=== PATIENT | male | born 1975 | race Caucasian/White ===

== ENCOUNTER 2023-05-13 21:29 | Emergency (ER) | payer OTHER ==
[~2023-05-13] VITALS: Ht 182.9 cm; Wt 170.1 kg
[2023-05-13 23:41] VITALS: BP 139/78; PULSE 78; RESP 18; O2SAT 97
[2023-05-13] MEDS: cloNIDine HCL 0.1 MG TAB PO ONE (23:46)
[2023-05-14] MEDS ORDERED: CLON0.2T PO (00:10)
== END 2023-05-14 00:24 | disposition home or self-care (01) ==
LOC: ER 21:29
DX: I10 Essential (primary) hypertension (principal); E78.5 Hyperlipidemia, unspecified; F17.210 Nicotine dependence, cigarettes, uncomplicated
CPT/HCPCS: 93005

== ENCOUNTER 2023-09-22 14:23 | Emergency (ER) | payer OTHER ==
[~2023-09-22] VITALS: Ht 182.9 cm; Wt 172.7 kg
[~2023-09-22 14:23] MED LIST: CLON0.2T PO
[2023-09-22 16:00] VITALS: PULSE 90; RESP 16; O2SAT 98
[2023-09-22] MEDS: cloNIDine HCL 0.1 MG TAB PO ONE (16:02)
[2023-09-22 16:09] LABS: Basophils # (auto) 0.1 10 ^3/uL (0-0.2); Eosinophils # (auto) 0.2 10 ^3/uL (0-0.8); Eosinophils % (auto) 2.8 % (0.0-7.0); Hematocrit 42.7 % (41.0-53.0); Hemoglobin 14.6 g/dL (13.5-17.5); Lymphocytes # (auto) 2.2 10 ^3/uL (0.4-5.4); Lymphocytes % (auto) 26.8 % (10.0-50.0); Mean Corpuscular Hemoglobin 29.5 pg (28.0-32.0); Mean Corpuscular Hgb Conc. 34.1 g/dL (32.0-36.0); Mean Corpuscular Volume 86.4 fL (80.0-100.0); Monocytes # (auto) 0.8 10 ^3/uL (0-1.3); Neutrophils # (auto) 4.8 10 ^3/uL (1.6-8.6); Neutrophils % (auto) 59.4 % (37.0-80.0); Nucleated Red Blood Cells % 0.1 %; Red Blood Cells 4.94 10^6/uL (4.5-5.90); Red Cell Distribution Width 13.8 % (11.8-14.3); White Blood Cell 8.1 10^3/uL (4.4-10.8)
[2023-09-22 16:21] LABS: Chloride 108 mmol/L (98-107); Potassium 4.5 mmol/L (3.5-5.1); Sodium 140 mmol/L (136-145)
[2023-09-22 16:23] LABS: Calcium 9.5 mg/dL (8.7-10.4)
[2023-09-22 16:28] LABS: BUN/Creatinine Ratio 17.5 (10.0-20.0); Blood Urea Nitrogen 17 mg/dL (9-23); Glucose 164 mg/dL (74-106)
[2023-09-22 16:29] LABS: Anion Gap 8 (5-15); Carbon Dioxide 24 mmol/L (20-30)
[2023-09-22] MEDS ORDERED: LOSA100T25 PO (16:33)
[2023-09-22 16:47] VITALS: BP 151/99; PULSE 89; RESP 18; TEMP 98.2; O2SAT 96
== END 2023-09-22 16:55 | disposition home or self-care (01) ==
LOC: ER 14:23
DX: I16.0 Hypertensive urgency (principal); E78.5 Hyperlipidemia, unspecified; F17.210 Nicotine dependence, cigarettes, uncomplicated; I10 Essential (primary) hypertension
CPT/HCPCS: 36415; 80048; 82962; 85025; 93005

== ENCOUNTER 2023-09-28 00:07 | Emergency (ER) | payer OTHER ==
[~2023-09-28] VITALS: Ht 182.9 cm; Wt 163.5 kg
[~2023-09-28 00:07] MED LIST changes: +LOSA100T25 PO
[2023-09-28] MEDS: DexAMETHasone SOD PHOS 10MG/1ML VIAL INJ IM ONE (00:50)
[2023-09-28 00:51] LABS: Basophils # (auto) 0.1 10 ^3/uL (0-0.2); Basophils % (auto) 0.7 % (0.0-2.0); Eosinophils # (auto) 0 10 ^3/uL (0-0.8); Eosinophils % (auto) 0.2 % (0.0-7.0); Hematocrit 47.7 % (41.0-53.0); Hemoglobin 16.1 g/dL (13.5-17.5); Lymphocytes # (auto) 2.2 10 ^3/uL (0.4-5.4); Lymphocytes % (auto) 17.4 % (10.0-50.0); Mean Corpuscular Hemoglobin 29.5 pg (28.0-32.0); Mean Corpuscular Hgb Conc. 33.8 g/dL (32.0-36.0); Mean Corpuscular Volume 87.4 fL (80.0-100.0); Monocytes # (auto) 1.2 10 ^3/uL (0-1.3); Monocytes % (auto) 9.5 % (0.0-12.0); Neutrophils % (auto) 72.2 % (37.0-80.0); Red Blood Cells 5.46 10^6/uL (4.5-5.90); Red Cell Distribution Width 14.2 % (11.8-14.3); White Blood Cell 12.4 10^3/uL (4.4-10.8)
[2023-09-28] MEDS: ALBUTEROL SULF 2.5 MG/0.5ML(0.5%) NEB SOLN NEB ONE (00:59)
[2023-09-28] MEDS: IPRATROPIUM BROM 0.5 MG/2.5ML INH SOL NEB ONE (01:00)
[2023-09-28 01:01] LABS: Alanine Aminotransferase 43 U/L (7-40); Albumin 4.7 g/dL (3.2-4.8); Alkaline Phosphatase 82 U/L (46-116); Anion Gap 8 (5-15); Aspartate Aminotransferase 19 U/L (13-40); BUN/Creatinine Ratio 15.9 (10.0-20.0); Bilirubin, Total 0.6 mg/dL (0.2-1.0); Blood Urea Nitrogen 18 mg/dL (9-23); Calcium 9.9 mg/dL (8.7-10.4); Carbon Dioxide 23 mmol/L (20-30); Chloride 103 mmol/L (98-107); Glucose 158 mg/dL (74-106); Magnesium 1.9 mg/dL (1.6-2.6); Potassium 4.1 mmol/L (3.5-5.1); Total Protein 8.6 g/dL (5.7-8.2)
[2023-09-28 01:10] LABS: Sodium 134 mmol/L (136-145)
[2023-09-28] MEDS: cloNIDine HCL 0.1 MG TAB PO ONE (01:12)
[2023-09-28 02:10] VITALS: BP 144/94; PULSE 86; RESP 16; TEMP 98.3; O2SAT 96
[2023-09-28] MEDS: KETOROLAC TROMETH 30 MG/ML 1ML VIAL IM ONE (02:42)
== END 2023-09-28 02:47 | disposition home or self-care (01) ==
LOC: ER 00:07
DX: I10 Essential (primary) hypertension (principal); E78.5 Hyperlipidemia, unspecified; F17.210 Nicotine dependence, cigarettes, uncomplicated; Z91.013 Allergy to seafood
CPT/HCPCS: 36415; 71045; 80053; 83735; 84484; 85025; 93005; 94640; 96372; 99285; J1100; J1885

== ENCOUNTER 2023-12-24 03:15 | Emergency (ER) | payer OTHER ==
[~2023-12-24] VITALS: Ht 182.9 cm; Wt 163.6 kg
[2023-12-24 05:11] LABS: Basophils # (auto) 0.1 10 ^3/uL (0-0.2); Eosinophils # (auto) 0.3 10 ^3/uL (0-0.8); Eosinophils % (auto) 3.4 % (0.0-7.0); Hematocrit 42.9 % (41.0-53.0); Hemoglobin 14.3 g/dL (13.5-17.5); Lymphocytes # (auto) 2.8 10 ^3/uL (0.4-5.4); Mean Corpuscular Hemoglobin 28.9 pg (28.0-32.0); Mean Corpuscular Hgb Conc. 33.2 g/dL (32.0-36.0); Mean Corpuscular Volume 87.1 fL (80.0-100.0); Monocytes # (auto) 0.8 10 ^3/uL (0-1.3); Monocytes % (auto) 8.9 % (0.0-12.0); Neutrophils # (auto) 5.3 10 ^3/uL (1.6-8.6); Neutrophils % (auto) 56.7 % (37.0-80.0); Platelet Count (auto) 295 10^3/uL (140-450); Red Blood Cells 4.93 10^6/uL (4.5-5.90); Red Cell Distribution Width 14.2 % (11.8-14.3); White Blood Cell 9.4 10^3/uL (4.4-10.8)
[2023-12-24 05:33] LABS: Alanine Aminotransferase 27 U/L (7-40); Albumin 4.5 g/dL (3.2-4.8); Alkaline Phosphatase 85 U/L (46-116); Anion Gap 9 (5-15); Aspartate Aminotransferase 16 U/L (13-40); BUN/Creatinine Ratio 10.7 (10.0-20.0); Bilirubin, Total 0.5 mg/dL (0.2-1.0); Blood Urea Nitrogen 11 mg/dL (9-23); Calcium 9.7 mg/dL (8.7-10.4); Carbon Dioxide 27 mmol/L (20-31); Chloride 102 mmol/L (98-107); Glucose 174 mg/dL (74-106); Lipase 35 U/L (12-53); Potassium 4.4 mmol/L (3.5-5.1); Sodium 138 mmol/L (136-145); Total Protein 7.7 g/dL (5.7-8.2)
[2023-12-24 06:22] VITALS: BP 139/90; PULSE 94; RESP 16; TEMP 98.1; O2SAT 96
== END 2023-12-24 07:31 | disposition home or self-care (01) ==
LOC: ER 03:15
DX: K42.9 Umbilical hernia without obstruction or gangrene (principal); R10.33 Periumbilical pain; E11.9 Type 2 diabetes mellitus without complications; K21.9 Gastro-esophageal reflux disease without esophagitis; E78.5 Hyperlipidemia, unspecified; I10 Essential (primary) hypertension; Z79.899 Other long term (current) drug therapy; Z87.442 Personal history of urinary calculi
CPT/HCPCS: 36415; 74176; 80053; 83690; 85025

== ENCOUNTER 2024-10-03 06:50 | Inpatient (IN) | payer OTHER ==
[~2024-10-03] VITALS: Ht 182.9 cm; Wt 157.1 kg
--- NOTE | 2024-10-03 07:15 | ED.PDOC ---
GI ASSESSMENT HPI Comments 48 y/o M, with PMHx of HTN, DM, GERD, HLD, and Kidney stones presents to the ED for CC of abdominal pain. Patient states, he has been experiencing diffuse sharp/stabbing abdominal pain onset, 0500 this morning (10/03/24). Patient relays, further symptoms or nausea, vomiting, and shortness of breath as a result. Patient comments, that he has had problems with constipation in the past and has not had a bowel movement in x1day. Patient denies nausea, vomiting, chills, fever, or sweats. No other symptoms or modifying factors present at this time. Chief Complaint: Abdominal Pain Time Seen by MD: 07:00 Primary Care Provider: Negin Wilde Notes: Nurses Notes, Medications, Allergies Allergies: Uncoded Allergies: SEAFOOD (Allergy, Unknown, 05/13/23) Home Meds Active Scripts Clonidine Hydrochloride (Clonidine Hcl) 0.2 Mg Tab, 1 TAB PO BIDP PRN, #15 TAB 0 Refills Prov:YURI RON PAC 09/28/23 Losartan Potassium & Hydrochlo (Hyzaar) 1 Tab Tab, 1 TAB PO DAILY, #30 TAB 5 Refills Prov:JOHN TARANGO MD 09/22/23 Clonidine Hydrochloride (Clonidine Hcl) 0.2 Mg Tab, 1 TAB PO BIDP PRN, #20 TAB 0 Refills To be utilized if systolic blood pressures above 160 or diastolic pressures above 90 Prov:YURI RON PAC 05/14/23 Information Source: Patient Mode of Arrival: Ambulatory Timing: Hours Duration: Since onset Prehospital treatment: None Quality: Sharp, Stabbing Vomitus: Watery Stool: Impaction Severity: Moderate Recent: None Recent Hx of: None Pain Location: Diffuse Modifying Factors: Nothing Associated sign and symptoms: Nausea, Vomiting, Abdominal Pain Past Medical History PAST MEDICAL HISTORY: DM, GERD, High Lipids, HTN, Kidney Stones Surgical History: Denies all surgeries Family History Family History: Unknown Social History Smoker: Non-Smoker, Quit Greater Than 1 Year Alcohol: Occasionally Drugs: Denies Drug Use Lives In: Home Constitutional: denies: chills, diaphoresis, fatigue, fever, malaise, sweats, weakness, others EENTM: denies: blurred vision, double vision, ear bleeding, ear discharge, ear drainage, ear pain, ear ringing, eye pain, eye redness, hearing loss, mouth pain, mouth swelling, nasal discharge, nose bleeding, nose congestion, nose pa in, photophobia, tearing, throat pain, throat swelling, voice changes, others Respiratory: reports: shortness of breath; denies: cough, hemoptysis, orthopnea, SOB at rest, SOB with excertion, stridor, wheezing, others Cardiovascular: denies: chest pain, dizzy spells, diaphoresis, Dyspnea on exertion, edema, irregular heart beat, left arm pain, lightheadedness, palpitations, PND, syncope, others Gastrointestinal: reports: abdominal pain, nausea, vomiting; denies: abdomen distended, blood streaked bowels, constipated, diarrhea, dysphagia, difficulty swallowing, hematemesis, melena, poor appetite, poor fluid intake, rectal bleeding, rectal pain, others Genitourinary: denies: burning, dysuria, flank pain, frequency, hematuria, incontinence, penile discharge, penile sore, pain, testicle pain, testicle swelling, urgency, others Neurological: denies: dizziness, fainting, headache, left sided numbness, left sided weakness, numbness, paresthesia, pre-existing deficit, right sided numbness, right sided weakness, seizure, speech problems, tingling, tremors, weakness, others Musculoskeletal: denies: back pain, gout, joint pain, joint swelling, muscle pain, muscle stiffness, neck pain, others Integumetry: denies: bruises, change in color, change in hair/nails, dryness, laceration, lesions, lumps, rash, wounds, others Allergic/Immunocompromised: denies: Difficulty Healing, Frequent Infections, H kim, Itching, others Hematologic/Lymphatic: denies: anemia, blood clots, easy bleeding, easy bruising, swollen glands, others Endocrine: denies: excessive hunger, excessive sweating, excessive thirst, excessive urination, flushing, intolerance to cold, intolerance to heat, unexplained weight gain, unexplained weight loss, others Psychiatric: denies: anxiety, bipolar disorder, depression, hopeless, panic disorder, schizophrenia, sleepless, suicidal, others All Other Systems: Reviewed and Negative Physical Exam General Appearance: Moderate Distress, Obese HEENT: Normal ENT Inspection, Pharynx Normal, TMs Normal Neck: Full Range of Motion, Non-Tender, Normal, Normal Inspection Respiratory: Chest Non-Tender, Lungs Clear, No Accessory Muscle Use, No Respiratory Distress, Normal Breath Sounds Cardiovascular: No Edema, No JVD, No Murmur, No Gallop, Normal Peripheral Pulses, Regular Rate/Rhythm Breast Exam: Deferred Gastrointestinal: Hernia Genitalia: Deferred Pelvic: Deferred Rectal: Deferred Extremities: No calf tenderness, Normal capillary refill, Normal inspection, Normal range of motion, Non-tender, No pedal edema Musculoskeletal : Apperance: Normal Neurologic: Alert, fpga design engineer II-XII nml as Tested, No Motor Deficits, Normal Affect, Normal Mood, No Sensory Deficits Cerebellar Function: Normal Reflexes: Normal Skin: Dry, Normal Color, Warm Peripheral Pulses: 3+ Radial (R), 3+ Radial (L) Lymphatic: No Adenopathy Was a procedure done? Was a procedure done?: No GI differential Dx Differential Diagnosis: Constipation, Diverticular disease, Esophagitis, Gastritis/PUD, Gastroenteritis, Hernia, Electrolyte Imbalance, Food Poisoning, Bacterial, Viral X-Ray, Labs, Meds, VS Vital Signs Date Time Temp Pulse Resp B/P (MAP) Pulse Ox O2 Delivery O2 Flow Rate FiO2 10/03/24 06:51 97.6 81 22 146/100 99 97.6 Lab Test 10/03/24 07:15 Range/Units White Blood Count 8.9 4.4-10.8 10^3/uL Red Blood Count 5.19 4.5-5.90 10^6/uL Hemoglobin 15.3 13.5-17.5 g/dL Hematocrit 44.5 41.0-53.0 % Mean Corpuscular Volume 85.7 80.0-100.0 fL Mean Corpuscular Hemoglobin 29.5 28.0-32.0 pg Mean Corpuscular Hemoglobin Concent 34.4 32.0-36.0 g/dL Red Cell Distribution Width 14.2 11.8-14.3 % Platelet Count 333 140-450 10^3/uL Mean Platelet Volume 8.1 6.9-10.8 fL Neutrophils (%) (Auto) 59.6 37.0-80.0 % Lymphocytes (%) (Auto) 30.3 10.0-50.0 % Monocytes (%) (Auto) 8.5 0.0-12.0 % Eosinophils (%) (Auto) 1.1 0.0-7.0 % Basophils (%) (Auto) 0.5 0.0-2.0 % Neutrophils # (Auto) 5.3 1.6-8.6 10 ^3/uL Lymphocytes # (Auto) 2.7 0.4-5.4 10 ^3/uL Monocytes # (Auto) 0.8 0-1.3 10 ^3/uL Eosinophils # (Auto) 0.1 0-0.8 10 ^3/uL Basophils # (Auto) 0 0-0.2 10 ^3/uL Nucleated Red Blood Cells 0.0 % Sodium Level 143 136-145 mmol/L Potassium Level 4.1 3.5-5.1 mmol/L Chloride Level 109 H 98-107 mmol/L Carbon Dioxide Level 22 20-31 mmol/L Anion Gap 12 5-15 Blood Urea Nitrogen 13 9-23 mg/dL Creatinine 1.06 0.700-1.30 mg/dL Glomerular Filtration Rate Calc 87 >90 mL/min BUN/Creatinine Ratio 12.3 10.0-20.0 Serum Glucose 182 H 74-106 mg/dL Calcium Level 9.2 8.7-10.4 mg/dL Patient alert. Complaining of abdominal pain. On examination he does have umbilical hernia. Vitals stable. Answering questions WBC within normal limits. Hemoglobin within normal limits. He is obese. Explained to the patient. Continue monitoring. [place] [address] Ph: [phone] DIAGNOSTIC IMAGING Diagnostic Imaging Report : [id number] Signed PATIENT: DEIRDRE VAILACCT: [id number] UNIT: [id number] : 1975 LOC: OVERFLOW ROOM / BED: [address] [place] [address] / AGE / SEX: 48 / M ADM STATUS: ADM IN SERVICE 0711 ORDERING PHYSICIAN: HELEN GALE MD PROCEDURE(s): ABPL - CT AB PEL WO CON-NO ORAL OR IV REASON: hernia ORDER NUMBER(s): [id number], ACCESSION NUMBER(s): [id number] CT CT AB PEL WO CON-NO ORAL OR IV INDICATION: hernia EXAM DATE: 10/03/2024 08:16 AM COMPARISON: CT CT AB PEL WO CON-NO ORAL OR IV on DOS: 12/24/23 RADIATION DOSE: CTDIvol: 25.71 mGy, DLP: 1834.91 mGy*cm PROCEDURE: Helical CT images were obtained of the abdomen and pelvis without IV contrast Sagittal and coronal reconstructions are provided. ORAL CONTRAST: None. ADDITIONAL IMAGES / REFORMATS: None All CT scans at this medical facility are performed using dose modulation techniques as appropriate to a performed exam including the following: Automated exposure control was utilized; adjustment of the MA and/or KV according to patient size; and use of iterative reconstruction technique. FINDINGS: LUNG BASE: Normal. LIVER: Hepatic steatosis. GALLBLADDER AND BILIARY TREE: No calcified gallstones. Normal caliber wall. No intra- or extrahepatic biliary ductal dilation. PANCREAS: Normal. SPLEEN: Normal. BOWEL: Normal. ADRENALS: Normal. KIDNEYS AND URETER: Normal. BLADDER: Normal. REPRODUCTIVE ORGANS: Normal. LYMPH NODES:No lymphadenopathy. PERITONEUM: No ascites or free air. No other fluid collection. VESSELS: Scattered atherosclerotic calcifications are noted. RETROPERITONEUM: Normal. ABDOMINAL WALL: Large fat containing umbilical hernia contains loop of nondilated bowel. BONES: Scattered osseous degenerative changes are noted. IMPRESSION: No acute intraabdominal abnormality. Large fat containing umbilical hernia contains loop of nondilated bowel. Hepatic steatosis. ATED BY: DANK VALLES MD DICTATED DATE/TIME: 10/03/24932 SIGNED BY: DANK VALLES MD SIGNED DATE/TIME: 10/03/24932 CC: Time of 1ST Reevaluation: 07:30 Reevaluation 1ST: Unchanged Patient Education/Counseling: Diagnosis, Treatment Family Education/Counseling: No Family Present SEPSIS Sepsis Screen Date sepsis recognized/suspect: Oct 03, 2024 Time Sepsis recognized/suspect: 0650 Recent Procedure: No On Antibiotic Therapy: No Respiratory Rate >20: Yes Heart Rate >90: No Temp<36 C (96.8 F) or >38.3 C: No SBP <90 or MAP <65 mmHG: No New Acute Mental Status Change: No Is the patient on CPAP, BIPAP,: No Physician Orders Ct Ab Pel Wo Con-No Oral Or Iv (10/03/24 07:11) Vital Signs Date Time Temp Pulse Resp B/P (MAP) Pulse Ox O2 Delivery O2 Flow Rate FiO2 10/03/24 06:51 97.6 81 22 146/100 99 97.6 Laboratory Tests Test 10/03/24 07:15 White Blood Count 8.9 10^3/uL (4.4-10.8) Departure 1 Departure Time of Disposition: 07:50 Impression: Primary Impression: Acute abdominal pain Additional Impression: Umbilical hernia Qualified Codes: K42.9 - Umbilical hernia without obstruction or gangrene Disposition: ADMITTED INPATIENT Admit to: Med Surg Condition: Guarded Critical Care Note Critical Care Time?: No Stability Stability form required: No Heart Score Heart Score: Heart Score Response (Comments) Value History N/A 0 EKG N/A 0 Age N/A 0 Risk Factors N/A 0 Troponin N/A 0 Total 0 I personally scribed for HELEN GALE MD ([email or web address]) on 10/03/24 at 07:15. Electronically submitted by Elodia Juarez ([email or web address]). I personally scribed for HELEN GALE MD ([email or web address]) on 10/03/24 at 10:02. Electronically submitted by Elodia Juarez [email or web address]). HELEN GALE MD Oct 03, 2024 07:15
[2024-10-03 07:47] LABS: Hematocrit 44.5 % (41.0-53.0); Hemoglobin 15.3 g/dL (13.5-17.5); Mean Corpuscular Hemoglobin 29.5 pg (28.0-32.0); Mean Corpuscular Volume 85.7 fL (80.0-100.0); Nucleated Red Blood Cells % 0.0 %
[2024-10-03 07:51] LABS: Potassium 4.1 mmol/L (3.5-5.1); Sodium 143 mmol/L (136-145)
[2024-10-03 07:52] LABS: Anion Gap 12 (5-15); Carbon Dioxide 22 mmol/L (20-31)
[2024-10-03 07:53] LABS: Calcium 9.2 mg/dL (8.7-10.4)
[2024-10-03 07:54] LABS: Chloride 109 mmol/L (98-107)
[2024-10-03 07:57] LABS: BUN/Creatinine Ratio 12.3 (10.0-20.0); Blood Urea Nitrogen 13 mg/dL (9-23)
[2024-10-03 07:58] LABS: Glucose 182 mg/dL (74-106)
[2024-10-03] MEDS ORDERED: NITROGLYCERIN 0.4 MG SL TAB SL PRN (09:30)
[2024-10-03] MEDS ORDERED: TEMAZEPAM 15 MG CAP PO PRN (09:30)
[2024-10-03] MEDS: SODIUM CHLORIDE 0.9% 1,000 ML IV SCH (09:30)
--- NOTE | 2024-10-03 09:35 | DVH ---
CT CT AB PEL WO CON-NO ORAL OR IV INDICATION: hernia EXAM DATE: 10/03/2024 08:16 AM COMPARISON: CT CT AB PEL WO CON-NO ORAL OR IV on DOS: 12/24/23 RADIATION DOSE: CTDIvol: 25.71 mGy, DLP: 1834.91 mGy*cm PROCEDURE: Helical CT images were obtained of the abdomen and pelvis without IV contrast Sagittal and coronal reconstructions are provided. ORAL CONTRAST: None. ADDITIONAL IMAGES / REFORMATS: None All C T scans at this medical facility are performed using dose modulation techniques as appropriate to a p erformed exam including the following: Automated exposure control was utilized; adjustment of the MA and/or KV according to patient size; and use of iterative reconstruction technique. FINDINGS: LUNG BASE: Normal. LIVER: Hepatic steatosis. GALLBLADDER AND BILIARY TREE: No calcified gallstones. Normal caliber wall. No intra- or extrahepatic biliary ductal dilation. PANCREAS: Normal. SPLEEN: Normal. BOWEL: Normal. ADRENALS: Normal. KIDNEYS AND URETER: Normal. BLADDER: Normal. REPRODUCTIVE ORGANS: Normal. LYMPH NODES:No lymphadenopathy. PERITONEUM: No ascites or free air. No other fluid collection. VESSELS: Scattered atherosclerotic calcifications are noted. RETROPERITONEUM: Normal. ABDOMINAL WALL: Large fat containing umbilical hernia contains loop of nondilated bowel. BONES: Scattered osseous degenerative changes are noted. IMPRESSION: No acute intraabdominal abnormality. Large fat containing umbilical hernia contains loop of nondilated bowel. Hepatic steatosis.
[2024-10-03] MEDS: MORPHINE SULFATE INJ 2 MG/ml SYRG IV PRN (09:41)
[2024-10-03] MEDS ORDERED: DEXTROSE (50%) 50ML SYRG IV PRN (11:30)
--- NOTE | 2024-10-03 11:37 | DVHHP2 ---
History of Present Illness Reason for Visit: Abdominal pain History of Present Illness 48-year-old male past medical history hypertension diabetes GERDs hyperlipidemia kidney stones umbilicus hernia denies surgical history chief complaint patient states he came in with abdominal pain since this morning was sharp in nature he states he was not able to sleep due to the pain woke him up this morning. He states he had some vomiting with one episode with blood otherwise none after that. He does state that he is constipated for the last two weeks he states his last bowel movement was Friday he did not see any diarrhea no black stools or blood in his stools he has not taken any medication for his constipation patient denies any history getting colonoscopy in the past he states he tries to take fiber in his diet daily he does admit to has been diagnosed with umbilicus hernias in November 2023 but he has not gotten a surgery for when evaluating patient's labs and imaging from ED CBC was unremarkable BNP unremarkable only glucose elevated at 182 CT scan abdomen pelvis shows umbilical hernia with these findings we will admit we will place NPO and we will ask for General surgery evaluation Past Medical History See HPI above Past Surgical History See HPI above Family History Reviewed, non-contributory to the management of this case. Past Social History The patient lives at home, denies smoking, alcohol or illicit drugs abuse. Review of Systems Constitutional: No: Fever, Chills, Sweats, Weakness, Malaise, Other Eyes: No: Pain, Vision change, Conjunctivae inflammation, Eyelid inflammation, Other, Redness ENT: No: Ear pain, Ear discharge, Nose pain, Nose discharge, Nose congestion, Mouth pain, Mouth swelling, Throat pain, Throat swelling, Other Respiratory: No: Cough, Dry, Shortness of breath, SOB with excertion, Wheezing, Hemoptysis, Pleuritic Pain, Sputum, Wheezing, Other Cardiovascular: No: Chest Pain, Palpitations, Orthopnea, Paroxysmal Noc. Dyspnea, Edema, Lt Headedness, Other Gastrointestinal: Nausea, Vomiting, Abdominal Pain; No: Diarrhea, Constipation, Melena, Hematochezia, Other Genitourinary: No Dysuria, No Frequency, No Incontinence, No Hematuria, No Retention, No Other Musculoskeletal: No: other, neck pain, shoulder pain, arm pain, back pain, hand pain, leg pain, foot pain Skin: No: Rash, Lesions, Jaundice, Bruising, Other Neurological: No: Weakness, Numbness, Incoordination, Change in speech, Confusion, Seizures, Other Allergies: Uncoded Allergies: SEAFOOD (Allergy, Unknown, 05/13/23) Medications Current Medications Medications Dose Ordered Sig/Oumar Route Start Time Stop Time Status Last Admin Dose Admin Sodium Chloride 1,000 ml @ 120 mls/hr Q8H20M IV 10/03/24 09:30 Temazepam 15 mg QHSP PRN PO 10/03/24 09:30 Ondansetron HCl 4 mg Q4HP PRN IV 10/03/24 09:30 Docusate Sodium 100 mg BIDPRN PRN PO 10/03/24 09:30 Morphine Sulfate 2 mg Q4HPRN PRN IV 10/03/24 09:30 10/03/24 09:41 2 MG Nitroglycerin 0.4 mg Q5MINP PRN SL 10/03/24 09:30 Exam Vital Signs Vital Signs Date Time Temp Pulse Resp B/P (MAP) Pulse Ox O2 Delivery O2 Flow Rate FiO2 10/03/24 09:41 97.6 84 16 167/102 (123) 98 97.6 General Appearance: Alert, Oriented X3, Cooperative, No acute distress HEENT: Atraumatic, PERRLA, EOMI, Mucous membr. moist/pink Respiratory: Clear to auscultation, Normal air movement Cardiovascular: Regular rate, Normal S1, Normal S2, No murmurs Abdominal: Normal bowel sounds, Soft, No hepatospenomegaly, Other (Mild tenderness around the umbilicus hernia mild protrusion) Extremities: No clubbing, No cyanosis, No edema, Normal pulses, No tenderness/swelling Skin: No rashes, No breakdown, No significant lesion Neuro: Normal gait, Normal speech, Strength at 5/5 X4 ext, Normal tone, Sensation intact, Cranial nerves 3-12 NL Psych/Mental Status: Mental status NL, Mood NL Labs/Xrays CT scan abdomen and pelvis shows umbilical hernia I reviewed labs, imaging CT scan abdomen pelvis, EKG and all diagnostic studies on this patient from ED records and the medical chart Labs Test 10/03/24 07:15 Range/Units White Blood Count 8.9 4.4-10.8 10^3/uL Red Blood Count 5.19 4.5-5.90 10^6/uL Hemoglobin 15.3 13.5-17.5 g/dL Hematocrit 44.5 41.0-53.0 % Mean Corpuscular Volume 85.7 80.0-100.0 fL Mean Corpuscular Hemoglobin 29.5 28.0-32.0 pg Mean Corpuscular Hemoglobin Concent 34.4 32.0-36.0 g/dL Red Cell Distribution Width 14.2 11.8-14.3 % Platelet Count 333 140-450 10^3/uL Mean Platelet Volume 8.1 6.9-10.8 fL Neutrophils (%) (Auto) 59.6 37.0-80.0 % Lymphocytes (%) (Auto) 30.3 10.0-50.0 % Monocytes (%) (Auto) 8.5 0.0-12.0 % Eosinophils (%) (Auto) 1.1 0.0-7.0 % Basophils (%) (Auto) 0.5 0.0-2.0 % Neutrophils # (Auto) 5.3 1.6-8.6 10 ^3/uL Lymphocytes # (Auto) 2.7 0.4-5.4 10 ^3/uL Monocytes # (Auto) 0.8 0-1.3 10 ^3/uL Eosinophils # (Auto) 0.1 0-0.8 10 ^3/uL Basophils # (Auto) 0 0-0.2 10 ^3/uL Nucleated Red Blood Cells 0.0 % Sodium Level 143 136-145 mmol/L Potassium Level 4.1 3.5-5.1 mmol/L Chloride Level 109 H 98-107 mmol/L Carbon Dioxide Level 22 20-31 mmol/L Anion Gap 12 5-15 Blood Urea Nitrogen 13 9-23 mg/dL Creatinine 1.06 0.700-1.30 mg/dL Glomerular Filtration Rate Calc 87 >90 mL/min BUN/Creatinine Ratio 12.3 10.0-20.0 Serum Glucose 182 H 74-106 mg/dL Calcium Level 9.2 8.7-10.4 mg/dL SEPSIS Sepsis Screen Date sepsis recognized/suspect: Oct 03, 2024 Time Sepsis recognized/suspect: 649 Recent Procedure: No On Antibiotic Therapy: No Respiratory Rate >20: Yes Heart Rate >90: No Temp<36 C (96.8 F) or >38.3 C: No SBP <90 or MAP <65 mmHG: No New Acute Mental Status Change: No Is the patient on CPAP, BIPAP,: No Physician Orders Ct Ab Pel Wo Con-No Oral Or Iv (10/03/24 07:11) Admit (10/03/24 09:18) Allergies (10/03/24 09:18) Code Status (10/03/24 09:18) Sodium Chloride 0.9% (10/03/24 09:30) Temazepam (Restoril) (10/03/24 09:30) Ondansetron Hcl (Zofran) (10/03/24 09:30) Docusate Sodium Capsule (Colace Capsule) (10/03/24 09:30) Complete Blood Count (10/04/24 04:00) Comprehensive Metabolic Panel (10/04/24 04:00) Npo (Nothing By Mouth) Diet (10/03/24 Breakfast) Condition: Stable (10/03/24 09:18) BRP (10/03/24 09:18) Morphine Sulfate Injection (10/03/24 09:30) Sequential Compression Device (10/03/24 ) Nitroglycerin Sublingual (Ntrostat Subli (10/03/24 09:30) Stat Ekg For Chest Pain (10/03/24 09:18) Notify Of Changes From Base (10/03/24 09:18) Freelance Web Designer For 24 Hours (10/03/24 09:18) Emergency Dysrhythmia Protocol (10/03/24 09:18) Rhythm Strips Once Every Shift (10/03/24 09:18) Oxygen By Nasal Cannula (10/03/24 09:18) * Surgical Consult (10/03/24 ) Vital Signs Date Time Temp Pulse Resp B/P (MAP) Pulse Ox O2 Delivery O2 Flow Rate FiO2 10/03/24 09:41 97.6 84 16 167/102 (123) 98 97.6 10/03/24 09:41 84 15 167/102 10/03/24 06:51 97.6 81 22 146/100 99 97.6 Laboratory Tests Test 10/03/24 07:15 White Blood Count 8.9 10^3/uL (4.4-10.8) Medications Medications Dose Ordered Sig/Oumar Route Start Time Stop Time Status Last Admin Dose Admin Morphine Sulfate 2 mg Q4HPRN PRN IV 10/03/24 09:30 10/03/24 09:41 2 MG Assessment/Plan Assessment/Plan acute intractable abdominal pain with umbilical hernia ct scan found umbilical hernia npo for now general surgery consult fu recs ivf for now ordered morphine as needed for pain ordered protonix acute upper gi bleed one episode will monitor for bleeding if continues will need to consult gi ordered protonix for now npo unitl seen by surgeon acute constipation ordered miralax chronic problems htn dm ISS hld kidney stones umbilicas hernia plan admit to medicine general surgery consult Plan discussed with: Patient My Orders Orders - SANCHEZ GELLER DNP Procedure Category Date Status Time Admit ADMIT 10/03/24 Transmitted 09:18 Allergies JERAMY 10/03/24 In Process 09:18 Code Status CODE 10/03/24 Transmitted 09:18 Sodium Chloride 0.9% PHA 10/03/24 In Process 09:30 Temazepam (Restoril) PHA 10/03/24 In Process 09:30 Ondansetron Hcl PHA 10/03/24 In Process (Zofran) 09:30 Docusate Sodium PHA 10/03/24 In Process Capsule (Colace 09:30 Complete Blood Count LAB 10/04/24 Verified 04:00 Comprehensive LAB 10/04/24 Verified Metabolic Panel 04:00 Npo (Nothing By DIET 10/03/24 Transmitted Mouth) Diet Breakfast Condition: Stable JERAMY 10/03/24 In Process 09:18 BRP JERAMY 10/03/24 In Process 09:18 Morphine Sulfate PHA 10/03/24 In Process Injection 09:30 Sequential JERAMY 10/03/24 In Process Compression Device Nitroglycerin PHA 10/03/24 In Process Sublingual (Ntrostat 09:30 Stat Ekg For Chest JERAMY 10/03/24 In Process Pain 09:18 Notify Md Of Changes JERAMY 10/03/24 In Process From Base 09:18 Freelance Web Designer For JERAMY 10/03/24 In Process 24 Hours 09:18 Emergency Dysrhythmia JERAMY 10/03/24 In Process Protocol 09:18 Rhythm Strips Once JERAMY 10/03/24 In Process Every Shift 09:18 Oxygen By Nasal RT 10/03/24 Transmitted Cannula 09:18 * Surgical Consult CONS 10/03/24 Transmitted Date of Service: Oct 03, 2024 Billing Provider: SANCHEZ GELLER DNP Common Visit Codes: [id number] INP/OBS CARE (HIGH) SANCHEZ GELLER [facility] Oct 03, 2024 11:37
[2024-10-03] MEDS: PANTOPRAZOLE 40 MG/10 ML VIAL INJ IV ONE (11:52)
[2024-10-03] MEDS: InsuLIN REG 1unit/0.01ml Soln (100units/ml) SC SCH (11:53)
[2024-10-03] MEDS: POLYETHYLENE GLYCOL 17 GM PWDR PO ONE (11:53)
[2024-10-03] MEDS: ACCU-CHEK COMFORT CURVE STRIP VI SCH (11:53)
--- NOTE | 2024-10-03 18:54 | DVHINCON2 ---
Date of service: Oct 03, 2024 Allergies: Uncoded Allergies: SEAFOOD (Allergy, Unknown, 05/13/23) Home Meds Active Scripts Clonidine Hydrochloride (Clonidine Hcl) 0.2 Mg Tab, 1 TAB PO BIDP PRN, #15 TAB 0 Refills Prov:YURI RON PAC 09/28/23 Losartan Potassium & Hydrochlo (Hyzaar) 1 Tab Tab, 1 TAB PO DAILY, #30 TAB 5 Refills Prov:JOHN TARANGO MD 09/22/23 Clonidine Hydrochloride (Clonidine Hcl) 0.2 Mg Tab, 1 TAB PO BIDP PRN, #20 TAB 0 Refills To be utilized if systolic blood pressures above 160 or diastolic pressures above 90 Prov:YURI RON PAC 05/14/23 Current Medications Current Medications Medications (Trade) Dose Ordered Sig/Oumar Route PRN Reason Start Time Stop Time Status Last Admin Sodium Chloride 1,000 ml @ 120 mls/hr Q8H20M IV 10/03/24 09:30 Temazepam (Restoril) 15 mg QHSP PRN PO FOR INSOMNIA 10/03/24 09:30 Ondansetron HCl (Zofran) 4 mg Q4HP PRN IV NAUSEA / VOMITING 10/03/24 09:30 Docusate Sodium (Colace Capsule) 100 mg BIDPRN PRN PO FOR CONSTIPATION 10/03/24 09:30 Morphine Sulfate 2 mg Q4HPRN PRN IV SEVERE PAIN (7-10 PAIN SCALE) 10/03/24 09:30 10/03/24 09:41 Nitroglycerin (Ntrostat Sublingual) 0.4 mg Q5MINP PRN SL FOR CHEST PAIN 10/03/24 09:30 Diagnostic Test (Pha) (Accu-Chek Comfort Curve T) 1 strip Q6HR 10/03/24 12:00 10/03/24 11:53 Insulin Human Regular (InsuLIN R) Q6HR SC 10/03/24 12:00 Dextrose 50 ml UD PRN IV Blood Sugar LESS THAN 60 10/03/24 11:30 Pantoprazole Sodium (Protonix) 40 mg DAILY IV 10/04/24 10:00 Polyethylene Glycol (Miralax 17GM Powder) 17 gm DAILYPRN PRN PO FOR CONSTIPATION 10/03/24 11:45 Vital Signs Vital Signs Date Time Temp Pulse Resp B/P (MAP) Pulse Ox O2 Delivery O2 Flow Rate FiO2 10/03/24 11:34 77 16 185/84 10/03/24 11:30 98.7 96 98.7 Labs/Diagnostic Data Labs Test 10/03/24 07:15 Range/Units White Blood Count 8.9 4.4-10.8 10^3/uL Red Blood Count 5.19 4.5-5.90 10^6/uL Hemoglobin 15.3 13.5-17.5 g/dL Hematocrit 44.5 41.0-53.0 % Mean Corpuscular Volume 85.7 80.0-100.0 fL Mean Corpuscular Hemoglobin 29.5 28.0-32.0 pg Mean Corpuscular Hemoglobin Concent 34.4 32.0-36.0 g/dL Red Cell Distribution Width 14.2 11.8-14.3 % Platelet Count 333 140-450 10^3/uL Mean Platelet Volume 8.1 6.9-10.8 fL Neutrophils (%) (Auto) 59.6 37.0-80.0 % Lymphocytes (%) (Auto) 30.3 10.0-50.0 % Monocytes (%) (Auto) 8.5 0.0-12.0 % Eosinophils (%) (Auto) 1.1 0.0-7.0 % Basophils (%) (Auto) 0.5 0.0-2.0 % Neutrophils # (Auto) 5.3 1.6-8.6 10 ^3/uL Lymphocytes # (Auto) 2.7 0.4-5.4 10 ^3/uL Monocytes # (Auto) 0.8 0-1.3 10 ^3/uL Eosinophils # (Auto) 0.1 0-0.8 10 ^3/uL Basophils # (Auto) 0 0-0.2 10 ^3/uL Nucleated Red Blood Cells 0.0 % Sodium Level 143 136-145 mmol/L Potassium Level 4.1 3.5-5.1 mmol/L Chloride Level 109 H 98-107 mmol/L Carbon Dioxide Level 22 20-31 mmol/L Anion Gap 12 5-15 Blood Urea Nitrogen 13 9-23 mg/dL Creatinine 1.06 0.700-1.30 mg/dL Glomerular Filtration Rate Calc 87 >90 mL/min BUN/Creatinine Ratio 12.3 10.0-20.0 Serum Glucose 182 H 74-106 mg/dL Calcium Level 9.2 8.7-10.4 mg/dL Assessment [id number] ABD PAIN' NON REDUCIBLE PERIUMBILICAL VENTRAL HERNIA R/O INCARCERATED/STRANGULATED VENTRAL HERNIA MANUAL REDUCTION ATTEMPTED AND DONE AT THE BEDSIDE CONTINUE CLOSE OBSERVATION ABD BINDER CONSIDER EMERGENT/ELECTIVE HERNIA SURGERY BASED ON ONGOING EVAL Plan discussed with: Patient SOLOMON ROBERTSON MD Oct 03, 2024 18:54
--- NOTE | 2024-10-03 19:45 | DVHINCON2 ---
DATE OF CONSULTATION: 10/03/2024 HISTORY OF PRESENT ILLNESS: The patient is 48 years old, coming with abdominal pain, swelling close to his umbilicus and he has had a hernia for a few months and now today he was not able to go back in. He came in a lot of pain. No constipation or diarrhea. No hematemesis or melena. No bleeding per rectum. He also had nausea and vomiting. He was unable to sleep due to the pain, woke him up in the morning and then he also has been constipated for the last 2 weeks off and on, but he has had no hematemesis, no bleeding per rectum and he has been diagnosed with an umbilical hernia or a periumbilical ventral hernia last year but no surgery was done. PAST MEDICAL HISTORY: As above. PAST SURGICAL HISTORY: As above. PHYSICAL EXAMINATION: VITAL SIGNS: Afebrile. Stable signs. HEENT: With no evidence of pallor, cyanosis or jaundice. NECK: Supple and nontender, with no thyromegaly or lymphadenopathy. CHEST AND LUNGS: Clear. HEART: Within normal limits. ABDOMEN: Soft. CLINICAL IMPRESSION: He has an incarcerated periumbilical ventral hernia. PLAN: The plan would be to attempt manual reduction at the bedside and then consider emergent/elective surgery based upon ongoing evaluation. Benefits and risks of the surgery have been discussed and a consent obtained. MD REBECCA Martini/FELIPE TID: [id number] RECEIPT: [id number] cc: SHELLEY Smith
[2024-10-03 22:25] VITALS: BP 161/111; PULSE 81; RESP 18; TEMP 97.7; O2SAT 96
[2024-10-03 23:00] VITALS: BP 149/87; PULSE 81; RESP 18; O2SAT 96
[2024-10-04] VITALS (7 sets, daily range): BP systolic 118–149; BP diastolic 67–99; PULSE 66–79; RESP 18–19; TEMP 97–98.5; O2SAT 93–99
[2024-10-04] MEDS ORDERED: ATOR80TA PO (01:00)
[2024-10-04] MEDS ORDERED: FAMO-12 PO (01:00)
[2024-10-04] MEDS ORDERED: PANT40TA2 PO (01:00)
[2024-10-04] MEDS ORDERED: SEMA1INJ2 SC (05:32)
[2024-10-04 06:42] LABS: Hematocrit 41.1 % (41.0-53.0); Hemoglobin 14.3 g/dL (13.5-17.5); Mean Corpuscular Hemoglobin 29.8 pg (28.0-32.0); Mean Corpuscular Volume 85.4 fL (80.0-100.0); Nucleated Red Blood Cells % 0.0 %
[2024-10-04 07:03] LABS: Alanine Aminotransferase 23 U/L (7-40); Albumin 4.4 g/dL (3.2-4.8); Alkaline Phosphatase 73 U/L (46-116); Anion Gap 11 (5-15); BUN/Creatinine Ratio 17.9 (10.0-20.0); Bilirubin, Total 0.8 mg/dL (0.2-1.0); Blood Urea Nitrogen 17 mg/dL (9-23); Calcium 9.3 mg/dL (8.7-10.4); Carbon Dioxide 24 mmol/L (20-31); Glucose 100 mg/dL (74-106); Potassium 3.9 mmol/L (3.5-5.1); Sodium 143 mmol/L (136-145); Total Protein 7.1 g/dL (5.7-8.2)
[2024-10-04 07:07] LABS: Chloride 108 mmol/L (98-107)
[2024-10-04] MEDS: PANTOPRAZOLE 40 MG/10 ML VIAL INJ IV SCH (09:01)
--- NOTE | 2024-10-04 10:40 | DVHPN2 ---
Progress Note Date Seen: Oct 04, 2024 Medical Necessity Reason Pt with a Central, PICC or Fol: No Subjective Patient reports: No new complaints Review of Systems: HEENT:Normal, CVS:Normal, RESPIRATORY:Normal, GI:Normal, :Normal, MSK:Normal, NEURO:Normal Objective vital signs Vital Sign Date Time Temp Pulse Resp B/P (MAP) Pulse Ox O2 Delivery O2 Flow Rate FiO2 10/04/24 09:14 97.0 79 19 128/90 (103) 93 97.0 10/04/24 08:07 Room Air* 0 21 Total Intake and Output 10/03/24 10/03/24 10/04/24 15:00 23:00 07:00 Intake Total 0 ml Balance 0 ml medications Current Medications Medications Dose Ordered Sig/Oumar Route Start Time Stop Time Status Last Admin Dose Admin Sodium Chloride 1,000 ml @ 120 mls/hr Q8H20M IV 10/03/24 09:30 10/04/24 00:10 120 MLS/HR Temazepam 15 mg QHSP PRN PO 10/03/24 09:30 Ondansetron HCl 4 mg Q4HP PRN IV 10/03/24 09:30 Docusate Sodium 100 mg BIDPRN PRN PO 10/03/24 09:30 Morphine Sulfate 2 mg Q4HPRN PRN IV 10/03/24 09:30 10/03/24 09:41 2 MG Nitroglycerin 0.4 mg Q5MINP PRN SL 10/03/24 09:30 Diagnostic Test (Pha) 1 strip Q6HR 10/03/24 12:00 10/04/24 05:31 1 STRIP Insulin Human Regular Q6HR SC 10/03/24 12:00 Dextrose 50 ml UD PRN IV 10/03/24 11:30 Pantoprazole Sodium 40 mg DAILY IV 10/04/24 10:00 10/04/24 09:01 40 MG Polyethylene Glycol 17 gm DAILYPRN PRN PO 10/03/24 11:45 Examination: GENERAL:Normal, HEENT:Normal, NECK:Normal, LUNGS:Normal, CVS:Normal, ABDOMEN:Normal, ABDOMEN:Abnormal (umbilical hernia), MSK:Normal, SKIN:Normal, NEURO:Normal, :Normal laboratory and microbiology Laboratory Tests 10/04/24 05:25 Test 10/04/24 05:25 Range/Units Serum Glucose 100 74-106 mg/dL Problem List/Assessment/Plan Problem List/Assessment/Plan #1 abd pain with umbilical hernia ?incarceration: surg eval, ivf, pain meds #2 dm: ssi #3 htn #4 morbid obesity #5 gerd #6 hyperlipidemia advance care planning- full code- time spent 18mins Plan discussed with: Patient My Orders My Orders Orders - ADITI SHANE MD Procedure Category Date Status Time 0.9% Ns 1000 Ml PHA 10/04/24 Verified 10:45 Basic Metabolic Panel LAB 10/05/24 Verified 06:00 Complete Blood Count LAB 10/05/24 Verified 06:00 PTPTT LAB 10/05/24 Verified 04:00 Chest Portable XY 10/05/24 Verified 06:00 Urinalysis LAB 10/04/24 Uncollected 10:37 Date of Service: Oct 04, 2024 Billing Provider: ADITI SHANE MD Common Visit Codes: [id number] INP/OBS CARE(HIGH) Secondary Visit Codes: [id number] CARE PLAN 30 MINUTES DAITI SHANE MD Oct 04, 2024 10:40
[2024-10-04] MEDS: POLYETHYLENE GLYCOL 17 GM PWDR PO PRN (10:53)
[2024-10-04] MEDS: SODIUM CHLORIDE 0.9% 1,000 ML IV SCH (10:53)
[2024-10-04 19:48] LABS: Urine Protein, UAD Negative (Negative)
--- NOTE | 2024-10-04 22:06 | DVHPN2 ---
Progress Note Date Seen: Oct 04, 2024 Medical Necessity Reason Pt with a Central, PICC or Fol: No Objective vital signs Vital Sign Date Time Temp Pulse Resp B/P (MAP) Pulse Ox O2 Delivery O2 Flow Rate FiO2 10/04/24 21:00 97.9 66 18 149/99 (116) 98 97.9 10/04/24 20:00 Room Air* 0 21 Total Intake and Output 10/03/24 10/03/24 10/04/24 15:00 23:00 07:00 Intake Total 0 ml Balance 0 ml medications Current Medications Medications Dose Ordered Sig/Oumar Route Start Time Stop Time Status Last Admin Dose Admin Temazepam 15 mg QHSP PRN PO 10/03/24 09:30 Ondansetron HCl 4 mg Q4HP PRN IV 10/03/24 09:30 Docusate Sodium 100 mg BIDPRN PRN PO 10/03/24 09:30 Morphine Sulfate 2 mg Q4HPRN PRN IV 10/03/24 09:30 10/03/24 09:41 2 MG Nitroglycerin 0.4 mg Q5MINP PRN SL 10/03/24 09:30 Diagnostic Test (Pha) 1 strip Q6HR 10/03/24 12:00 10/04/24 16:54 1 STRIP Insulin Human Regular Q6HR SC 10/03/24 12:00 Dextrose 50 ml UD PRN IV 10/03/24 11:30 Pantoprazole Sodium 40 mg DAILY IV 10/04/24 10:00 10/04/24 09:01 40 MG Polyethylene Glycol 17 gm DAILYPRN PRN PO 10/03/24 11:45 10/04/24 10:53 17 GM Sodium Chloride 1,000 ml @ 100 mls/hr Q10H IV 10/04/24 10:45 10/04/24 21:07 100 MLS/HR laboratory and microbiology Laboratory Tests 10/04/24 05:25 Test 10/04/24 05:25 Range/Units Serum Glucose 100 74-106 mg/dL Problem List/Assessment/Plan Problem List/Assessment/Plan AFEBRILE VSS ABD SOFT VENTRAL / UMBILICAL HERNIA REMAINS REDUCED NO BM FLATUS+ PROCEED WITH OPEN REPAIR VENTRAL WITH MESH,B/L MUSCLE COMPONENT SEPARATION AM BENEFITS RISKS DISCUSSED PT CONSENTS Plan discussed with: Patient My Orders My Orders Orders - SOLOMON ROBERTSON MD Procedure Category Date Status Time Npo (Nothing By DIET 10/05/24 Transmitted Mouth) Diet Breakfast Obtain Consent For: ORDERS 10/04/24 Transmitted 19:21 Obtain Consent For JERAMY 10/04/24 In Process Anesthesia 19:21 SOLOMON ROBERTSON MD Oct 04, 2024 22:06
[2024-10-05] VITALS (8 sets, daily range): BP systolic 112–143; BP diastolic 69–101; PULSE 64–103; RESP 13–19; TEMP 97–98.9; O2SAT 95–99
[2024-10-05 07:09] LABS: Anion Gap 10 (5-15); Carbon Dioxide 26 mmol/L (20-31); Potassium 3.9 mmol/L (3.5-5.1); Sodium 143 mmol/L (136-145)
[2024-10-05 07:10] LABS: Calcium 9.0 mg/dL (8.7-10.4)
[2024-10-05 07:15] LABS: BUN/Creatinine Ratio 10.3 (10.0-20.0); Blood Urea Nitrogen 11 mg/dL (9-23); Glucose 94 mg/dL (74-106)
[2024-10-05 07:19] LABS: Chloride 107 mmol/L (98-107); INR 1.03 (0.9-1.15); Partial Thromboplastin Time 29.6 SEC (24.5-34.5); Prothrombin Time 10.9 sec (9.3-11.8)
[2024-10-05 07:25] LABS: Hematocrit 41.8 % (41.0-53.0); Hemoglobin 14.3 g/dL (13.5-17.5); Mean Corpuscular Hemoglobin 29.2 pg (28.0-32.0); Mean Corpuscular Volume 85.8 fL (80.0-100.0); Nucleated Red Blood Cells % 0.1 %
--- NOTE | 2024-10-05 08:32 | DVH ---
CHEST RADIOGRAPH Indication: htn Technique: Single frontal view of the chest was obtained Comparison: XY CHEST PORTABLE on DOS: 09/28/23 FINDINGS: Lines and Tubes: None Lungs: No focal consolidation. Pleura: No effusion. No pneumothorax. Cardiomediastinal contours: Unremarkable Bones: No acute osseous abnormality. IMPRESSION: 1. No acute cardiopulmonary disease.
--- NOTE | 2024-10-05 10:34 | DVHPN2 ---
Progress Note Date Seen: Oct 05, 2024 Medical Necessity Reason Pt with a Central, PICC or Fol: No Subjective Patient reports: No new complaints Review of Systems: HEENT:Normal, CVS:Normal, RESPIRATORY:Normal, GI:Normal, :Normal, MSK:Normal, NEURO:Normal Objective vital signs Vital Sign Date Time Temp Pulse Resp B/P (MAP) Pulse Ox O2 Delivery O2 Flow Rate FiO2 10/05/24 08:56 97.0 71 18 128/89 (102) 95 97.0 10/05/24 08:27 Room Air* 0 21 Total Intake and Output 10/04/24 10/04/24 10/05/24 15:00 23:00 07:00 Intake Total 1000 ml 1800 ml 700 ml Balance 1000 ml 1800 ml 700 ml medications Current Medications Medications Dose Ordered Sig/Oumar Route Start Time Stop Time Status Last Admin Dose Admin Temazepam 15 mg QHSP PRN PO 10/03/24 09:30 Ondansetron HCl 4 mg Q4HP PRN IV 10/03/24 09:30 Docusate Sodium 100 mg BIDPRN PRN PO 10/03/24 09:30 Morphine Sulfate 2 mg Q4HPRN PRN IV 10/03/24 09:30 10/03/24 09:41 2 MG Nitroglycerin 0.4 mg Q5MINP PRN SL 10/03/24 09:30 Diagnostic Test (Pha) 1 strip Q6HR 10/03/24 12:00 10/05/24 05:33 1 STRIP Insulin Human Regular Q6HR SC 10/03/24 12:00 Dextrose 50 ml UD PRN IV 10/03/24 11:30 Pantoprazole Sodium 40 mg DAILY IV 10/04/24 10:00 10/05/24 09:34 40 MG Polyethylene Glycol 17 gm DAILYPRN PRN PO 10/03/24 11:45 10/04/24 10:53 17 GM Sodium Chloride 1,000 ml @ 100 mls/hr Q10H IV 10/04/24 10:45 10/04/24 21:07 100 MLS/HR Examination: GENERAL:Normal, HEENT:Normal, NECK:Normal, LUNGS:Normal, CVS:Normal, ABDOMEN:Normal, ABDOMEN:Abnormal (umbilical hernia), MSK:Normal, SKIN:Normal, NEURO:Normal, :Normal laboratory and microbiology Laboratory Tests 10/05/24 05:19 Test 10/05/24 05:19 Range/Units Serum Glucose 94 74-106 mg/dL Problem List/Assessment/Plan Problem List/Assessment/Plan #1 abd pain with umbilical hernia ?incarceration: surg today, ivf, pain meds #2 dm: ssi #3 htn #4 morbid obesity #5 gerd #6 hyperlipidemia advance care planning- full code- time spent 18mins Plan discussed with: Patient My Orders My Orders Orders - ADITI SHANE MD Procedure Category Date Status Time Sodium Chloride 0.9% PHA 10/04/24 In Process 10:45 Chest Portable XY 10/05/24 Resulted 06:00 Urinalysis LAB 10/04/24 Uncollected 10:37 Electrocardigram EKG 10/05/24 Logged 06:57 Date of Service: Oct 05, 2024 Billing Provider: ADITI SHANE MD Common Visit Codes: [id number] INP/OBS CARE(HIGH) ADITI SHANE MD Oct 05, 2024 10:34
[2024-10-05] MEDS ORDERED: SODIUM CHLORIDE LOCK 10 ML ONE (10:37)
[2024-10-05] MEDS ORDERED: LIDOCAINE HCL 2% TOP JELLY 5ML TOP ONE (10:37)
[2024-10-05] MEDS ORDERED: fentaNYL CITRATE 100 MCG/2 ML VL ONE (10:37)
[2024-10-05] MEDS ORDERED: HYDROmorphone HCL 2 MG/ML VL/or syr ONE (10:37)
[2024-10-05] MEDS ORDERED: LIDOCAINE 1% INJ PF 5ML AMP ONE (10:37)
[2024-10-05] MEDS ORDERED: MIDAZOLAM HCL 2MG/2ML 2ml VIAL (1mg/ml) ONE (10:37)
[2024-10-05] MEDS ORDERED: ONDANSETRON HCL 4 MG/2 ML VIAL ONE (10:38)
[2024-10-05] MEDS ORDERED: GLYCOPYRROLATE 0.2 MG/ML 1ML VIAL ONE (10:38)
[2024-10-05] MEDS ORDERED: PROPOFOL 10 MG/ML 20 ML IV ONE (10:38)
[2024-10-05] MEDS ORDERED: ROCURONIUM 10MG/ML 10ML VIAL IV ONE (10:38)
[2024-10-05] MEDS ORDERED: NEOSTIGMINE 1 MG/ML INJ (10mg/10ML VIAL) ONE (10:38)
[2024-10-05] MEDS: ceFAZolin 1GM VL ONE (11:38)
[2024-10-05] MEDS: LIDOCAINE 1% HCL (LOCAL ANESTH.) INJ 20ML MDV ONE (12:02)
[2024-10-05] MEDS ORDERED: SUGAMMADEX 200mg/2ml Vial (100MG/ML) IV ONE (12:50)
[2024-10-05] MEDS: METOCLOPRAMIDE HCL 5MG/ml INJ 2ml VIAL IV ONE (13:59)
--- NOTE | 2024-10-05 13:59 | DVHOP2 ---
Operative Report [id number] INCARCERATED PERIUMBILICAL VENTRAL HERNIA 6 CMS OPEN REPAIR VENTRAL HERNIA WITH MESH AND B/L MUSCLE COMPONENT SEPARATION EBL 25 CC ONE DRAIN NO COMPLICATIONS ABD BINDER STABLE TRANSFER TO RECOVERY ROOM SOLOMON ROBERTSON MD Oct 05, 2024 13:59
[2024-10-05] MEDS ORDERED: MORPHINE SULFATE 4 MG/ML SYR/VIAL IV PRN (14:00)
[2024-10-05] MEDS ORDERED: MORPHINE SULFATE INJ 2 MG/ml SYRG IV PRN (14:00)
[2024-10-05] MEDS ORDERED: HYDROmorphone HCL 2 MG/ML VL/or syr IV PRN (14:00)
[2024-10-05] MEDS: ACCU-CHEK COMFORT CURVE STRIP VI ONE (14:01)
[2024-10-05] MEDS: HYDROmorphone HCL 2 MG/ML VL/or syr IV PRN (14:05)
[2024-10-05] MEDS: HYDROmorphone HCL 2 MG/ML VL/or syr IV ONE (14:05)
--- NOTE | 2024-10-05 14:12 | DVHOP ---
DATE OF SURGERY: 10/05/2024 PREOPERATIVE DIAGNOSIS: Incarcerated periumbilical ventral hernia, measuring 6 cm. POSTOPERATIVE DIAGNOSIS: Incarcerated periumbilical ventral hernia, measuring 6 cm. PROCEDURE: Open repair of this hernia with mesh and bilateral muscle component separation. SURGEON: Thom Warner MD NITROGLYCERIN NITRATOR OPERATOR BATCH: None. ANESTHESIA: General. ESTIMATED BLOOD LOSS: Close to 25 mL. DRAINS: One drain was used. COMPLICATIONS: No complications were encountered. DESCRIPTION OF PROCEDURE: The patient was prepped and draped in the usual sterile fashion in the supine position. An incision was applied supraumbilically and infraumbilically at the right of the umbilicus, taken down to the deeper tissues. A very large hernia sac was identified. The umbilicus was detached and the sac was identified and dissected off. The fascial edges were defined and it was a periumbilical hernia measuring 6 cm and the sac was opened up, mostly was omental tissue and it was all viable. It was reduced back into the abdomen. Adhesions had to be taken down and the sac was removed and transfixed at the neck using a Vicryl suture. The preperitoneal space was developed and medium-sized Ventralex mesh was applied, secured in place using a Prolene suture in all four quadrants. The strings of the mesh were detached and then the fascial edges were brought together using a Prolene suture in interrupted fashion in a transverse oblique fashion. After the bilateral muscular component separation was carried out to the right side first, left side next, making sure that the neurovascular bundles were kept out of harm's way at all times. With the Prolene suturing done, it was reinforced with Vicryl suture at various locations and the umbilicus was reconstructed using the Vicryl suture. Size 19 Benjy drainage tube was placed to drain the subcutaneous tissues and bring it from the lateral side of the incision on the right side securing it with a silk suture. The sponge count, needle count was reported correct. Hemostasis was secured. Irrigation fluid was removed. The subcutaneous tissue was brought together using Vicryl suture. The skin incisions were brought together using Monocryl suture in subcuticular fashion. Surgical glue was applied. Steri-Strips were applied and then a dressing was applied for the main wound as well as the drain site. Abdominal binder was applied. He was taken back to the recovery room in a stable condition with no complications. MD REBECCA Martini/EKRoberto TID: [id number] RECEIPT: [id number] cc: Vitaly Caldwell
[2024-10-05] MEDS: ceFAZolin 2 GM/D5W50ml 50 ML IV ONE (18:21)
[2024-10-05] MEDS: KETOROLAC TROMETH 30 MG/ML 1ML VIAL IV ONE (18:22)
[2024-10-05] MEDS: ROCURONIUM 10MG/ML 10ML VIAL IV ONE ×2 (18:22)
[2024-10-05] MEDS: ONDANSETRON HCL 4 MG/2 ML VIAL IV PRN (20:42)
[2024-10-06] VITALS (7 sets, daily range): BP systolic 128–146; BP diastolic 85–100; PULSE 87–112; RESP 16–20; TEMP 97.8–99.7; O2SAT 93–96
[2024-10-06 06:40] LABS: Hematocrit 38.7 % (41.0-53.0); Hemoglobin 13.2 g/dL (13.5-17.5); Mean Corpuscular Hemoglobin 29.3 pg (28.0-32.0); Mean Corpuscular Volume 85.7 fL (80.0-100.0); Nucleated Red Blood Cells % 0.0 %
[2024-10-06 06:56] LABS: Alanine Aminotransferase 20 U/L (7-40); Albumin 4.0 g/dL (3.2-4.8); Alkaline Phosphatase 69 U/L (46-116); Anion Gap 10 (5-15); BUN/Creatinine Ratio 10.0 (10.0-20.0); Blood Urea Nitrogen 10 mg/dL (9-23); Carbon Dioxide 24 mmol/L (20-31); Chloride 107 mmol/L (98-107); Glucose 93 mg/dL (74-106); Potassium 3.8 mmol/L (3.5-5.1); Sodium 141 mmol/L (136-145); Total Protein 6.6 g/dL (5.7-8.2)
[2024-10-06 06:57] LABS: Bilirubin, Total 1.0 mg/dL (0.2-1.0)
[2024-10-06 06:58] LABS: Calcium 8.6 mg/dL (8.7-10.4)
--- NOTE | 2024-10-06 10:22 | DVHPN2 ---
Progress Note Date Seen: Oct 06, 2024 Medical Necessity Reason Pt with a Central, PICC or Fol: No Subjective Patient reports: No new complaints Review of Systems: HEENT:Normal, CVS:Normal, RESPIRATORY:Normal, GI:Normal, :Normal, MSK:Normal, NEURO:Normal Objective vital signs Vital Sign Date Time Temp Pulse Resp B/P (MAP) Pulse Ox O2 Delivery O2 Flow Rate FiO2 10/06/24 07:52 Room Air* 0 21 10/06/24 06:32 89 18 132/94 10/06/24 05:00 98.6 94 98.6 Total Intake and Output 10/05/24 10/05/24 10/06/24 15:00 23:00 07:00 Intake Total 100 ml 200 ml 1050 ml Output Total 30 ml Balance 100 ml 200 ml 1020 ml medications Current Medications Medications Dose Ordered Sig/Oumar Route Start Time Stop Time Status Last Admin Dose Admin Temazepam 15 mg QHSP PRN PO 10/03/24 09:30 Ondansetron HCl 4 mg Q4HP PRN IV 10/03/24 09:30 10/06/24 01:49 4 MG Docusate Sodium 100 mg BIDPRN PRN PO 10/03/24 09:30 Morphine Sulfate 2 mg Q4HPRN PRN IV 10/03/24 09:30 10/06/24 06:02 2 MG Nitroglycerin 0.4 mg Q5MINP PRN SL 10/03/24 09:30 Diagnostic Test (Pha) 1 strip Q6HR 10/03/24 12:00 10/06/24 05:46 1 STRIP Insulin Human Regular Q6HR SC 10/03/24 12:00 Dextrose 50 ml UD PRN IV 10/03/24 11:30 Pantoprazole Sodium 40 mg DAILY IV 10/04/24 10:00 10/05/24 09:34 40 MG Polyethylene Glycol 17 gm DAILYPRN PRN PO 10/03/24 11:45 10/04/24 10:53 17 GM Sodium Chloride 1,000 ml @ 100 mls/hr Q10H IV 10/04/24 10:45 10/06/24 01:55 100 MLS/HR Examination: GENERAL:Normal, HEENT:Normal, NECK:Normal, LUNGS:Normal, CVS:Normal, ABDOMEN:Normal, ABDOMEN:Abnormal (drain+), MSK:Normal, SKIN:Normal, NEURO:Normal, :Normal laboratory and microbiology Laboratory Tests 10/06/24 05:06 Test 10/06/24 05:06 Range/Units Serum Glucose 93 74-106 mg/dL Problem List/Assessment/Plan Problem List/Assessment/Plan #1 abd pain with umbilical hernia ?incarceration: s/p surg, ivf, pain meds #2 dm: ssi #3 htn #4 morbid obesity #5 gerd #6 hyperlipidemia advance care planning- full code- time spent 18mins Plan discussed with: Patient My Orders My Orders Orders - ADITI SHANE MD Procedure Category Date Status Time 0.9% Ns 1000 Ml PHA 10/06/24 Verified 10:30 Hydromorphone PHA 10/06/24 Verified Injection (Dilaudid 10:30 Date of Service: Oct 06, 2024 Billing Provider: ADITI SHANE MD Common Visit Codes: [id number] INP/OBS CARE(HIGH) ADITI SHANE MD Oct 06, 2024 10:22
[2024-10-06] MEDS: SODIUM CHLORIDE 0.9% 1,000 ML IV SCH (10:57)
[2024-10-06] MEDS: HYDROmorphone HCL 2 MG/ML VL/or syr IV PRN (11:00)
[2024-10-07] VITALS (8 sets, daily range): BP systolic 109–155; BP diastolic 68–103; PULSE 89–109; RESP 16–20; TEMP 98.2–99.3; O2SAT 92–96
[2024-10-07] MEDS: DOCUSATE SOD 100 MG CAP PO PRN (05:35)
--- NOTE | 2024-10-07 10:57 | DVHPN2 ---
Progress Note Date Seen: Oct 07, 2024 Medical Necessity Reason Pt with a Central, PICC or Fol: No Objective vital signs Vital Sign Date Time Temp Pulse Resp B/P (MAP) Pulse Ox O2 Delivery O2 Flow Rate FiO2 10/07/24 09:00 98.3 109 18 136/100 (112) 93 98.3 10/06/24 20:00 Room Air* 0 21 Total Intake and Output 10/06/24 10/06/24 10/07/24 15:00 23:00 07:00 Intake Total 1000 ml 500 ml 1420 ml Output Total 35 ml Balance 1000 ml 500 ml 1385 ml medications Current Medications Medications Dose Ordered Sig/Oumar Route Start Time Stop Time Status Last Admin Dose Admin Temazepam 15 mg QHSP PRN PO 10/03/24 09:30 Ondansetron HCl 4 mg Q4HP PRN IV 10/03/24 09:30 10/06/24 16:35 4 MG Docusate Sodium 100 mg BIDPRN PRN PO 10/03/24 09:30 10/07/24 05:35 100 MG Nitroglycerin 0.4 mg Q5MINP PRN SL 10/03/24 09:30 Diagnostic Test (Pha) 1 strip Q6HR 10/03/24 12:00 10/07/24 05:37 1 STRIP Insulin Human Regular Q6HR SC 10/03/24 12:00 Dextrose 50 ml UD PRN IV 10/03/24 11:30 Pantoprazole Sodium 40 mg DAILY IV 10/04/24 10:00 10/07/24 10:01 40 MG Polyethylene Glycol 17 gm DAILYPRN PRN PO 10/03/24 11:45 10/04/24 10:53 17 GM Sodium Chloride 1,000 ml @ 75 mls/hr [id number] IV 10/06/24 10:30 10/06/24 23:14 75 MLS/HR Hydromorphone HCl 1 mg Q4HPRN PRN IV 10/06/24 10:30 10/07/24 04:05 1 MG laboratory and microbiology Laboratory Tests 10/06/24 05:06 Test 10/06/24 05:06 Range/Units Serum Glucose 93 74-106 mg/dL Problem List/Assessment/Plan Problem List/Assessment/Plan AFEBRILE VSS ABD SOFT VENTRAL / UMBILICAL HERNIA REMAINS REDUCED WOUND DRESSING DRY NO COMPLICATIONS DRAIN 30 CC SEROSANGUINEOUS CARDIAC RESPIRATORY EVAL ONGOING CONTINUE CLOSE OBSERVATION NURSE AT BEDSIDE Plan discussed with: Patient Dietary Evaluation Review Comments: Encourage fluid Advance diet when medically feasible encourage physical activities Wt management uon D/C Expected Outcomes/Goals: constipation can be resolved when pt resumes his normal fiber containing diet and physical activities SOLOMON ROBERTSON MD Oct 07, 2024 10:57
--- NOTE | 2024-10-07 13:01 | DVHPN2 ---
Progress Note Date Seen: Oct 07, 2024 Medical Necessity Reason Pt with a Central, PICC or Fol: No Subjective Patient reports: No new complaints Review of Systems: HEENT:Normal, CVS:Normal, RESPIRATORY:Normal, GI:Normal, :Normal, MSK:Normal, NEURO:Normal Objective vital signs Vital Sign Date Time Temp Pulse Resp B/P (MAP) Pulse Ox O2 Delivery O2 Flow Rate FiO2 10/07/24 09:00 98.3 109 18 136/100 (112) 93 98.3 10/06/24 20:00 Room Air* 0 21 Total Intake and Output 10/06/24 10/06/24 10/07/24 15:00 23:00 07:00 Intake Total 1000 ml 500 ml 1420 ml Output Total 35 ml Balance 1000 ml 500 ml 1385 ml medications Current Medications Medications Dose Ordered Sig/Oumar Route Start Time Stop Time Status Last Admin Dose Admin Temazepam 15 mg QHSP PRN PO 10/03/24 09:30 Ondansetron HCl 4 mg Q4HP PRN IV 10/03/24 09:30 10/06/24 16:35 4 MG Docusate Sodium 100 mg BIDPRN PRN PO 10/03/24 09:30 10/07/24 05:35 100 MG Nitroglycerin 0.4 mg Q5MINP PRN SL 10/03/24 09:30 Diagnostic Test (Pha) 1 strip Q6HR 10/03/24 12:00 10/07/24 12:03 1 STRIP Insulin Human Regular Q6HR SC 10/03/24 12:00 Dextrose 50 ml UD PRN IV 10/03/24 11:30 Pantoprazole Sodium 40 mg DAILY IV 10/04/24 10:00 10/07/24 10:01 40 MG Polyethylene Glycol 17 gm DAILYPRN PRN PO 10/03/24 11:45 10/04/24 10:53 17 GM Sodium Chloride 1,000 ml @ 75 mls/hr [id number] IV 10/06/24 10:30 10/06/24 23:14 75 MLS/HR Hydromorphone HCl 1 mg Q4HPRN PRN IV 10/06/24 10:30 10/07/24 04:05 1 MG Examination: GENERAL:Normal, HEENT:Normal, NECK:Normal, LUNGS:Normal, CVS:Normal, ABDOMEN:Normal, ABDOMEN:Abnormal (drain+), MSK:Normal, SKIN:Normal, NEURO:Normal, :Normal laboratory and microbiology Laboratory Tests 10/06/24 05:06 Test 10/06/24 05:06 Range/Units Serum Glucose 93 74-106 mg/dL Problem List/Assessment/Plan Problem List/Assessment/Plan #1 abd pain with umbilical hernia ?incarceration: s/p surg, ivf, pain meds #2 dm: ssi #3 htn #4 morbid obesity #5 gerd #6 hyperlipidemia #7 sob: check chest xray, lasix iv advance care planning- full code- time spent 18mins Plan discussed with: Patient Dietary Evaluation Review Comments: Encourage fluid Advance diet when medically feasible encourage physical activities Wt management uon D/C Expected Outcomes/Goals: constipation can be resolved when pt resumes his normal fiber containing diet and physical activities Date of Service: Oct 07, 2024 Billing Provider: ADITI SHANE MD Common Visit Codes: [id number] INP/OBS CARE(HIGH) ADITI SHANE MD Oct 07, 2024 13:01
[2024-10-07] MEDS: LOSARTAN POTASSIUM 25 MG TAB PO ONE (13:23)
[2024-10-07] MEDS: FUROSEMIDE 20 MG/2 ML VIAL IV ONE (13:23)
--- NOTE | 2024-10-07 15:10 | DVH ---
AP portable chest CLINICAL INDICATION: sob Comparison: 10/05/2024 FINDINGS: Heart size is normal. No infiltrates or effusions. No bony thoracic abnormalities. IMPRESSION: 1. Normal chest x-ray.
[2024-10-08] VITALS (8 sets, daily range): BP systolic 121–149; BP diastolic 78–101; PULSE 75–91; RESP 16–20; TEMP 96.2–98; O2SAT 93–97
[2024-10-08 08:10] LABS: Chloride 106 mmol/L (98-107); Potassium 3.9 mmol/L (3.5-5.1); Sodium 142 mmol/L (136-145)
[2024-10-08 08:11] LABS: Anion Gap 10 (5-15); Carbon Dioxide 26 mmol/L (20-31)
[2024-10-08 08:12] LABS: Calcium 8.9 mg/dL (8.7-10.4)
[2024-10-08 08:17] LABS: BUN/Creatinine Ratio 6.1 (10.0-20.0)
[2024-10-08 08:19] LABS: Blood Urea Nitrogen 6 mg/dL (9-23); Glucose 112 mg/dL (74-106)
[2024-10-08 08:23] LABS: Hematocrit 38.8 % (41.0-53.0); Hemoglobin 13.5 g/dL (13.5-17.5); Mean Corpuscular Hemoglobin 29.7 pg (28.0-32.0); Mean Corpuscular Volume 85.4 fL (80.0-100.0); Nucleated Red Blood Cells % 0.2 %
[2024-10-08] MEDS ORDERED: HYDROcodone-ACET 5/325MG TAB PO PRN (10:45)
--- NOTE | 2024-10-08 10:50 | DVHPN2 ---
Subjective Patient denies any symptoms at this time. Reviewed: Care Plan, H&P, Labs, Medications Changes from previous H/P or p: No Changes Eyes: No Pain, No Vision change, No Conjunctivae inflammation, No Eyelid inflammation, No Other, No Redness ENT: No Ear pain, No Ear discharge, No Nose pain, No Nose discharge, No Nose congestion, No Mouth pain, No Mouth swelling, No Throat pain, No Throat swelling, No Other Cardiovascular: No Chest Pain, No Palpitations, No Orthopnea, No Paroxysmal Noc. Dyspnea, No Edema, No Lt Headedness, No Other Respiratory: No Cough, No Dry, No Shortness of breath, No SOB with excertion, No Wheezing, No Hemoptysis, No Pleuritic Pain, No Sputum, No Other Gastrointestinal: Abdominal Pain; No Diarrhea, No Constipation, No Melena, No Hematochezia, No Other Genitourinary: No Dysuria, No Frequency, No Incontinence, No Hematuria, No Retention, No Other Musculoskeletal: No other, No neck pain, No shoulder pain, No arm pain, No back pain, No hand pain, No leg pain, No foot pain Skin: No Rash, No Lesions, No Jaundice, No Bruising, No Other Objective Vitals Vital Signs Date Time Temp Pulse Resp B/P (MAP) Pulse Ox O2 Delivery O2 Flow Rate FiO2 10/08/24 08:20 82 18 97 Room Air* 0 21 10/08/24 05:36 145/73 10/08/24 05:00 97.4 97.4 Intake/Output Intake and Output 10/08/24 07:00 Intake Total 2785 ml Output Total 28 ml Balance 2757 ml Intake Oral 2400 ml IV Total 385 ml Other 28 ml # Voids 10 General Appearance: Alert, Oriented X3, Cooperative, No acute distress HEENT: Atraumatic, PERRLA Lungs: Clear to auscultation, Normal air movement Cardiovascular: Normal S1, Normal S2 Abdomen: Normal bowel sounds, Soft, No tenderness, Other (Abdominal dressing dry and intact. MICHAEL drain with serosanguineous fluid) Musculoskeletal: Normal sensory function, Normal motor function Skin: Dry, Intact Psych/Mental Status: Mental status NL, Mood NL Medications Current Medications Medications Dose Ordered Sig/Oumar Route Start Time Stop Time Status Last Admin Dose Admin Temazepam 15 mg QHSP PRN PO 10/03/24 09:30 Ondansetron HCl 4 mg Q4HP PRN IV 10/03/24 09:30 10/07/24 18:23 4 MG Docusate Sodium 100 mg BIDPRN PRN PO 10/03/24 09:30 10/07/24 05:35 100 MG Nitroglycerin 0.4 mg Q5MINP PRN SL 10/03/24 09:30 Diagnostic Test (Pha) 1 strip Q6HR 10/03/24 12:00 10/08/24 05:06 1 STRIP Insulin Human Regular Q6HR SC 10/03/24 12:00 Dextrose 50 ml UD PRN IV 10/03/24 11:30 Pantoprazole Sodium 40 mg DAILY IV 10/04/24 10:00 10/07/24 10:01 40 MG Polyethylene Glycol 17 gm DAILYPRN PRN PO 10/03/24 11:45 10/04/24 10:53 17 GM Hydromorphone HCl 1 mg Q4HPRN PRN IV 10/06/24 10:30 10/08/24 05:06 1 MG Losartan Potassium 25 mg DAILY PO 10/08/24 10:00 Laboratory Results Laboratory Tests 10/08/24 06:57 Chemistry Test 10/08/24 06:57 Calcium Level 8.9 mg/dL (8.7-10.4) Urinalysis Test 10/04/24 16:45 Urine Color Light-yellow (Yellow) Urine Clarity Clear (Clear) Urine pH 5.5 (5.0-9.0) Urine Specific [place] 1.018 (1.001-1.035) Urine Protein Negative (Negative) Urine Ketones Negative (Negative) Urine Blood Negative /uL (Negative) Urine Nitrite Negative (Negative) Urine Bilirubin Negative (Negative) Urine Urobilinogen Normal mg/dL (Negative) Urine Leukocyte Esterase Negative /uL (Negative) Urine RBC 1 /hpf (0 - 3) Urine Microscopic WBC 1 /HPF (0-3) Urine Squamous Epithelial Cells Few /hpf (<5) Urine Bacteria None seen /hpf (None Seen) Urine Mucus Few (None Seen) Urine Glucose Normal mg/dL (Normal) Labs and/or images reviewed: Labs reviewed by me, Image(s) reviewed by me Assessment/Plan Assessment/Plan Impression: -incarcerated umbilical hernia, status post ventral hernia repair -diabetes mellitus -primary hypertension -morbid obesity -GERD -dyslipidemia Plan: -patient on room air. No distress noted. Chest x-ray clear -positive bowel sounds. Positive flatus. Add stool softener given persistent constipation -regular insulin sliding scale -pain management: Add H[place], weaned off of IV Dilaudid -advanced to full liquid diet -discharge once cleared by General surgery Total time spent with patient discussing and formulating plan of care: 35 minutes. This medical document was created using an electronic medical record system with [employer] dictation system. Although this document has been carefully reviewed, there may still be some phonetic and typographical errors. These areas are purely typographical due to imperfections of the software programs, and do not reflect any compromise in the patient's medical care. Plan discussed with: Patient, Other (RN) Date of Service: Oct 08, 2024 Billing Provider: JOLENE STEVENS NP Common Visit Codes: [id number] INP/OBS CARE(HIGH) JOLENE STEVENS NP Oct 08, 2024 10:49
[2024-10-08] MEDS: LOSARTAN POTASSIUM 25 MG TAB PO SCH (10:52)
--- NOTE | 2024-10-08 21:54 | DVHPN2 ---
Progress Note Date Seen: Oct 08, 2024 Medical Necessity Reason Pt with a Central, PICC or Fol: No Objective vital signs Vital Sign Date Time Temp Pulse Resp B/P (MAP) Pulse Ox O2 Delivery O2 Flow Rate FiO2 10/08/24 20:54 97.4 86 16 135/81 (99) 97 97.4 10/08/24 08:20 Room Air* 0 21 Total Intake and Output 10/07/24 10/07/24 10/08/24 15:00 23:00 07:00 Intake Total 385 ml 1800 ml 600 ml Output Total 28 ml Balance 385 ml 1772 ml 600 ml medications Current Medications Medications Dose Ordered Sig/Oumar Route Start Time Stop Time Status Last Admin Dose Admin Temazepam 15 mg QHSP PRN PO 10/03/24 09:30 Ondansetron HCl 4 mg Q4HP PRN IV 10/03/24 09:30 10/07/24 18:23 4 MG Nitroglycerin 0.4 mg Q5MINP PRN SL 10/03/24 09:30 Diagnostic Test (Pha) 1 strip Q6HR 10/03/24 12:00 10/08/24 18:06 1 STRIP Insulin Human Regular Q6HR SC 10/03/24 12:00 Dextrose 50 ml UD PRN IV 10/03/24 11:30 Pantoprazole Sodium 40 mg DAILY IV 10/04/24 10:00 10/08/24 10:53 40 MG Polyethylene Glycol 17 gm DAILYPRN PRN PO 10/03/24 11:45 10/04/24 10:53 17 GM Hydromorphone HCl 1 mg Q4HPRN PRN IV 10/06/24 10:30 10/08/24 05:06 1 MG Losartan Potassium 25 mg DAILY PO 10/08/24 10:00 10/08/24 10:52 25 MG Docusate Sodium 100 mg BID PO 10/08/24 22:00 Acetaminophen/ Hydrocodone Bitart 1 tab Q6HPRN PRN PO 10/08/24 10:45 laboratory and microbiology Laboratory Tests 10/08/24 06:57 Test 10/08/24 06:57 Range/Units Serum Glucose 112 H 74-106 mg/dL Problem List/Assessment/Plan Problem List/Assessment/Plan AFEBRILE VSS ABD SOFT VENTRAL / UMBILICAL HERNIA REMAINS REDUCED WOUND DRESSING DRY NO COMPLICATIONS DRAIN 20 CC SEROSANGUINEOUS CONTINUE CLOSE OBSERVATION NURSE AND FAMILY AT BEDSIDE ABDOMINAL BINDER Plan discussed with: Patient Dietary Evaluation Review Comments: Encourage fluid Advance diet when medically feasible encourage physical activities Wt management uon D/C Expected Outcomes/Goals: constipation can be resolved when pt resumes his normal fiber containing diet and physical activities SOLOMON ROBERTSON MD Oct 08, 2024 21:54
[2024-10-08] MEDS: DOCUSATE SOD 100 MG CAP PO SCH (22:06)
[2024-10-09 01:14] VITALS: BP 130/81; PULSE 72; RESP 19; TEMP 97.6; O2SAT 95
[2024-10-09 05:00] VITALS: BP 140/90; PULSE 77; RESP 18; TEMP 98.1; O2SAT 95
[2024-10-09 09:07] VITALS: BP 137/80; PULSE 67; RESP 20; TEMP 98; O2SAT 97
--- NOTE | 2024-10-09 10:43 | DVHPN2 ---
Progress Note Date Seen: Oct 09, 2024 Medical Necessity Reason Pt with a Central, PICC or Fol: No Objective vital signs Vital Sign Date Time Temp Pulse Resp B/P (MAP) Pulse Ox O2 Delivery O2 Flow Rate FiO2 10/09/24 09:33 137/80 10/09/24 09:07 98.0 67 20 97 98.0 10/08/24 20:00 Room Air* 0 21 Total Intake and Output 10/08/24 10/08/24 10/09/24 15:00 23:00 07:00 Intake Total 3225 ml 700 ml Output Total 50 ml Balance 3175 ml 700 ml medications Current Medications Medications Dose Ordered Sig/Oumar Route Start Time Stop Time Status Last Admin Dose Admin Temazepam 15 mg QHSP PRN PO 10/03/24 09:30 Ondansetron HCl 4 mg Q4HP PRN IV 10/03/24 09:30 10/07/24 18:23 4 MG Nitroglycerin 0.4 mg Q5MINP PRN SL 10/03/24 09:30 Diagnostic Test (Pha) 1 strip Q6HR 10/03/24 12:00 10/09/24 06:00 1 STRIP Insulin Human Regular Q6HR SC 10/03/24 12:00 Dextrose 50 ml UD PRN IV 10/03/24 11:30 Pantoprazole Sodium 40 mg DAILY IV 10/04/24 10:00 10/08/24 10:53 40 MG Polyethylene Glycol 17 gm DAILYPRN PRN PO 10/03/24 11:45 10/09/24 09:33 17 GM Hydromorphone HCl 1 mg Q4HPRN PRN IV 10/06/24 10:30 10/08/24 05:06 1 MG Losartan Potassium 25 mg DAILY PO 10/08/24 10:00 10/09/24 09:33 25 MG Docusate Sodium 100 mg BID PO 10/08/24 22:00 10/09/24 09:32 100 MG Acetaminophen/ Hydrocodone Bitart 1 tab Q6HPRN PRN PO 10/08/24 10:45 laboratory and microbiology Laboratory Tests 10/08/24 06:57 Test 10/08/24 06:57 Range/Units Serum Glucose 112 H 74-106 mg/dL Problem List/Assessment/Plan Problem List/Assessment/Plan AFEBRILE VSS ABD SOFT VENTRAL / UMBILICAL HERNIA REMAINS REDUCED WOUND DRESSING DRY NO COMPLICATIONS DRAIN 30 CC SEROSANGUINEOUS CONTINUE CLOSE OBSERVATION NURSE AND FAMILY AT BEDSIDE ABDOMINAL BINDER AMBULATING CLEARED FOR DISCHARGE INSTRUCTIONS RE DIET ACTIVITY F/UP DRAIN CARE GIVEN Plan discussed with: Patient Dietary Evaluation Review Comments: Encourage fluid Advance diet when medically feasible encourage physical activities Wt management uon D/C Expected Outcomes/Goals: constipation can be resolved when pt resumes his normal fiber containing diet and physical activities SOLOMON ROBERTSON MD Oct 09, 2024 10:43
[2024-10-09] MEDS ORDERED: HYDR-4902 PO (13:02)
[2024-10-09] MEDS ORDERED: LOSA100T25 PO (13:02)
[2024-10-09] MEDS ORDERED: PANT40TA2 PO (13:02)
[2024-10-09] MEDS ORDERED: AMOX500T86 PO (13:02)
[2024-10-09] MEDS ORDERED: CLON0.2T PO (13:02)
--- NOTE | 2024-10-09 13:06 | DVHDS2 ---
Discharge Summary Date of Admission Oct 03, 2024 at 09:18 Date of Discharge: Oct 09, 2024 Admitting Diagnosis Umbilical hernia Labs/Diagnostic Data: Laboratory Results Test 10/09/24 11:39 10/08/24 06:57 10/06/24 05:06 10/05/24 05:19 POC Glucose 129 mg/dl (70-106) White Blood Count 9.5 10^3/uL (4.4-10.8) Red Blood Count 4.54 10^6/uL (4.5-5.90) Hemoglobin 13.5 g/dL (13.5-17.5) Hematocrit 38.8 % (41.0-53.0) Mean Corpuscular Volume 85.4 fL (80.0-100.0) Mean Corpuscular Hemoglobin 29.7 pg (28.0-32.0) Mean Corpuscular Hemoglobin Concent 34.8 g/dL (32.0-36.0) Red Cell Distribution Width 14.0 % (11.8-14.3) Platelet Count 281 10^3/uL (140-450) Mean Platelet Volume 8.4 fL (6.9-10.8) Neutrophils (%) (Auto) 69.3 % (37.0-80.0) Lymphocytes (%) (Auto) 17.8 % (10.0-50.0) Monocytes (%) (Auto) 10.9 % (0.0-12.0) Eosinophils (%) (Auto) 1.5 % (0.0-7.0) Basophils (%) (Auto) 0.5 % (0.0-2.0) Neutrophils # (Auto) 6.5 10 ^3/uL (1.6-8.6) Lymphocytes # (Auto) 1.7 10 ^3/uL (0.4-5.4) Monocytes # (Auto) 1.0 10 ^3/uL (0-1.3) Eosinophils # (Auto) 0.1 10 ^3/uL (0-0.8) Basophils # (Auto) 0 10 ^3/uL (0-0.2) Nucleated Red Blood Cells 0.2 % Sodium Level 142 mmol/L (136-145) Potassium Level 3.9 mmol/L (3.5-5.1) Chloride Level 106 mmol/L (98-107) Carbon Dioxide Level 26 mmol/L (20-31) Anion Gap 10 (5-15) Blood Urea Nitrogen 6 mg/dL (9-23) Creatinine 0.99 mg/dL (0.700-1.30) Glomerular Filtration Rate Calc 95 mL/min (>90) BUN/Creatinine Ratio 6.1 (10.0-20.0) Serum Glucose 112 mg/dL (74-106) Calcium Level 8.9 mg/dL (8.7-10.4) Total Bilirubin 1.0 mg/dL (0.2-1.0) Aspartate Amino Transferase (AST) 15 U/L (13-40) Alanine Aminotransferase (ALT) 20 U/L (7-40) Alkaline Phosphatase 69 U/L (46-116) Total Protein 6.6 g/dL (5.7-8.2) Albumin 4.0 g/dL (3.2-4.8) Prothrombin Time 10.9 sec (9.3-11.8) Prothrombin Time INR 1.03 (0.9-1.15) Activated Partial Thromboplast Time 29.6 SEC (24.5-34.5) Test 10/04/24 16:45 Urine Color Light-yellow (Yellow) Urine Clarity Clear (Clear) Urine pH 5.5 (5.0-9.0) Urine Specific [place] 1.018 (1.001-1.035) Urine Protein Negative (Negative) Urine Ketones Negative (Negative) Urine Blood Negative /uL (Negative) Urine Nitrite Negative (Negative) Urine Bilirubin Negative (Negative) Urine Urobilinogen Normal mg/dL (Negative) Urine Leukocyte Esterase Negative /uL (Negative) Urine RBC 1 /hpf (0 - 3) Urine Microscopic WBC 1 /HPF (0-3) Urine Squamous Epithelial Cells Few /hpf (<5) Urine Bacteria None seen /hpf (None Seen) Urine Mucus Few (None Seen) Urine Glucose Normal mg/dL (Normal) Other Laboratory Tests 10/08/24 06:57 Brief Hx & Hospital Course: History of Present Illness 48-year-old male past medical history hypertension diabetes GERDs hyperlipidemia kidney stones umbilicus hernia denies surgical history chief complaint patient states he came in with abdominal pain since this morning was sharp in nature he states he was not able to sleep due to the pain woke him up this morning. He states he had some vomiting with one episode with blood otherwise none after that. He does state that he is constipated for the last two weeks he states his last bowel movement was Friday he did not see any diarrhea no black stools or blood in his stools he has not taken any medication for his constipation patient denies any history getting colonoscopy in the past he states he tries to take fiber in his diet daily he does admit to has been diagnosed with umbilicus hernias in November 2023 but he has not gotten a surgery for when evaluating patient's labs and imaging from ED CBC was unremarkable BNP unremarkable only glucose elevated at 182 CT scan abdomen pelvis shows umbilical hernia with these findings we will admit we will place NPO and we will ask for General surgery evaluation. Course of hospitalization: Patient underwent ventral hernia repair. Postoperatively, recovery process was uneventful. Patient's diet has been advanced. Patient has had positive BM. Patient continues to have some serosanguineous drainage from MICHAEL drain. He has been cleared for discharge by Dr. Castro Warner. Patient will be discharged home and continued on pain management, and antibiotic therapy. He will follow up with Dr. Warner in one week. Patient was also instructed to not lift anything greater than 5 lb until cleared by the surgeon. Patient was agreeable with discharge plan. All questions answered. Physical examination General: Alert and Oriented x3. No acute distress. Well-nourished. Obese Eyes: EOMI. Anicteric. HENT: Moist mucous membranes. Lungs: Clear to auscultation bilaterally. No accessory muscle use. Cardiovascular: Regular rate and rhythm. No murmur. No JVD. Abdomen: Soft, non-tender and non-distended. No palpable masses. Dressing dry and intact. MICHAEL drain dry and intact. Extremities: No edema. Non-tender. Skin: No rashes or lesions. Warm. Neurologic: No focal neurological deficits. CN II-XII grossly intact, but not individually tested. Psychiatric: Cooperative. Appropriate mood and affect. Total time spent with patient discussing and formulating plan of care: 35 minutes. This medical document was created using an electronic medical record system with [employer] system. Although this document has been carefully reviewed, there may still be some phonetic and typographical errors. These areas are purely typographical due to imperfections of the software programs, and do not reflect any compromise in the patient's medical care. Consults/Reason for consult General surgery Operations or Procedures Ventral hernia repair Condition at Discharge: Fair Final Diagnosis/Problems List Ventral hernia repair Discharge Disposition: Home Discharge Instruct/Medications Diet: Regular Activity: See Comment Activity comment: Do not lift anything greater than 5 lb until cleared by General surgery. Follow Up/Referral: Dr. Castro Warner in one week PCP in 1-2 weeks Medications: [place] 5/325 Q 6 hours as needed for [id number] pain Augmentin 500 mg p.o. b.i.d. x5 days Continue all previous home medications Scheduled Amoxicillin & Pot Clavulanate (Augmentin), 1 TAB PO BID Atorvastatin Calcium (Lipitor), 1 TAB PO DAILY, (Reported) Famotidine (Famotidine), 20 MG PO BID, (Reported) Losartan Potassium & Hydrochlo (Hyzaar), 1 TAB PO DAILY Pantoprazole Sodium Sesquihydr (Protonix), 40 MG PO DAILY Semaglutide (Ozempic), 2 MG SC QWEEKLY, (Reported) Scheduled PRN Clonidine Hydrochloride (Clonidine Hcl), 1 TAB PO BIDP PRN Clonidine Hydrochloride (Clonidine Hcl), 1 TAB PO BIDP PRN Hydrocodone-Acetaminophen (Hydrocodone Bitartrate/AC 5-325 mg), 1 TAB PO Q6HP PRN 36 Discharge Statement: "Patient was advised to return to the ER or call 911 if any headaches, dizziness, shortness of breath, chest pain, abdominal pain, bleeding, fevers, or worsening of medical condition. Patient was counseled about treatment plan, medications, possible side effects, patientverbalized understanding. All questions were answered to the best of my ability. This discharge took greater then 30 minutes in planning, reviewing documentation, counseling the patient, and discussing with other team members." ASSESSMENT ASSESSMENT Assessment Ventral hernia repair Date of Service: Oct 09, 2024 Billing Provider: JOLENE STEVENS NP Common Visit Codes: [id number]/OBS DISCH DAY >30min JOLENE STEVENS NP Oct 09, 2024 13:06
[2024-10-09 13:22] VITALS: BP 134/77; PULSE 79; RESP 20; TEMP 97.5; O2SAT 95
[2024-10-09 13:37] VITALS: BP 117/73; PULSE 81; RESP 20; TEMP 98.9; O2SAT 96
== END 2024-10-09 14:00 | disposition home or self-care (01) | DRG 354 ==
LOC: ER 06:50 → OVERFLOW 09:18 → CENTRAL 22:20
PROVIDERS: ADMIT Internal Medicine; ATTEND Internal Medicine
PROC: 0WUF0JZ Supplement Abdominal Wall with Synthetic Substitute, Open Approach (ICD-10-PCS; principal; 2024-10-05 11:04)
DX: K43.9 Ventral hernia without obstruction or gangrene (principal); K42.0 Umbilical hernia with obstruction, without gangrene; K92.2 Gastrointestinal hemorrhage, unspecified; Z68.42 Body mass index [BMI] 45.0-49.9, adult; I10 Essential (primary) hypertension; E78.5 Hyperlipidemia, unspecified; K76.0 Fatty (change of) liver, not elsewhere classified; K59.00 Constipation, unspecified; E11.9 Type 2 diabetes mellitus without complications; E66.01 Morbid (severe) obesity due to excess calories; K21.9 Gastro-esophageal reflux disease without esophagitis; Z87.442 Personal history of urinary calculi; Z91.013 Allergy to seafood
CPT/HCPCS: 36415; 71045; 74176; 80048; 80053; 81001; 82962; 85025; 85610; 85730; 86850; 86900; 86901; 88302; 97110; 97116; 97163; 97530; G0378; J0690; J2003; J2250; J2405; J2470; J2704

== ENCOUNTER 2024-10-21 09:10 | Inpatient (IN) | payer OTHER ==
[~2024-10-21] VITALS: Ht 182.9 cm; Wt 172.4 kg
[~2024-10-21 09:10] MED LIST changes: +AMOX500T86 PO; +ATOR80TA PO; +FAMO-12 PO; +HYDR-4902 PO; +PANT40TA2 PO; +SEMA1INJ2 SC
--- NOTE | 2024-10-21 10:00 | ED.PDOC ---
History of Present Illness(SKN HPI Comments 48 y/o M, with PMHx of GERD, HLD, HTN, and kidney stones presents to the ED for CC of wound check. Patient states, he has been experiencing pain to his postoperative site following an umbilical hernia repair on (10/05/24). Patient reports, pain has worsened overtime with new symptoms of generalized erythema and tactile fevers. At this time patient complains of, 8/10 sharp pain to the postoperative site. Patient denies nausea, vomiting, diarrhea, sweats, or chills. No other symptoms or modifying factors are present at this time. Chief Complaint: Wound Check Time Seen by MD: 09:45 Primary Care Provider: Negin History of Present Illness: Nurses Notes, Medications, Allergies Allergies: Uncoded Allergies: SEAFOOD (Allergy, Unknown, 05/13/23) Home Meds Active Scripts Amoxicillin & Pot Clavulanate (Augmentin) 500 Mg Tab, 1 TAB PO BID for 5 Days, #10 TAB Prov:JOLENE STEVENS SPORT PSYCHOLOGIST 10/09/24 Hydrocodone-Acetaminophen (Hydrocodone Bitartrate/AC 5-325 mg) 1 Tab Tab, 1 TAB PO Q6HP PRN for 5 Days, #15 TAB Prov:JOLENE STEVENS SPORT PSYCHOLOGIST 10/09/24 Pantoprazole Sodium Sesquihydr (Protonix) 40 Mg Tab, 40 MG PO DAILY for 30 Days, #30 TAB Prov:JOLENE STEVENS SPORT PSYCHOLOGIST 10/09/24 Clonidine Hydrochloride (Clonidine Hcl) 0.2 Mg Tab, 1 TAB PO BIDP PRN for 15 Days, #30 TAB 0 Refills Prov:JOLENE STEVENS SPORT PSYCHOLOGIST 10/09/24 Losartan Potassium & Hydrochlo (Hyzaar) 1 Tab Tab, 1 TAB PO DAILY for 30 Days, #30 TAB 1 Refill Prov:JOLENE STEVENS SPORT PSYCHOLOGIST 10/09/24 Clonidine Hydrochloride (Clonidine Hcl) 0.2 Mg Tab, 1 TAB PO BIDP PRN, #20 TAB 0 Refills To be utilized if systolic blood pressures above 160 or diastolic pressures above 90 Prov:YURI RON PAC 05/14/23 Reported Medications Semaglutide (Ozempic) 8 Mg/3 Ml Inj, 2 MG SC QWEEKLY 10/04/24 Atorvastatin Calcium (Lipitor) 80 Mg Tab, 1 TAB PO DAILY, #30 TAB 5 Refills 10/04/24 Famotidine (Famotidine) 20 Mg Tab, 20 MG PO BID for 30 Days, MG 10/04/24 Information Source: Patient Mode of Arrival: Ambulatory Severity: Moderate Timing: Days Duration: Since onset Prehospital treatment: None Location: Abdomen Developed: Generalized erythema Object: None Condition of Object: None Retained Foreign Body: No Wound Type: Laceration Immunization Status of Animal: NA History of: None Associated Signs and Symptoms: Fever, Redness Past Medical History PAST MEDICAL HISTORY: DM, GERD, High Lipids, HTN, Kidney Stones Surgical History: Denies all surgeries Family History Family History: Unknown Social History Smoker: Non-Smoker, Quit Greater Than 1 Year Alcohol: Occasionally Drugs: Denies Drug Use Lives In: Home Constitutional: reports: fever; denies: chills, diaphoresis, fatigue, malaise, sweats, weakness, others EENTM: denies: blurred vision, double vision, ear bleeding, ear discharge, ear drainage, ear pain, ear ringing, eye pain, eye redness, hearing loss, mouth pain, mouth swelling, nasal discharge, nose bleeding, nose congestion, nose pain, photophobia, tearing, throat pain, throat swelling, voice changes, others Respiratory: denies: cough, hemoptysis, orthopnea, SOB at rest, shortness of breath, SOB with excertion, stridor, wheezing, others Cardiovascular: denies: chest pain, dizzy spells, diaphoresis, Dyspnea on exertion, edema, irregular heart beat, left arm pain, lightheadedness, palpitations, PND, syncope, others Gastrointestinal: denies: abdomen distended, abdominal pain, blood streaked bowels, constipated, diarrhea, dysphagia, difficulty swallowing, hematemesis, melena, nausea, poor appetite, poor fluid intake, rectal bleeding, rectal pain, vomiting, others Genitourinary: denies: burning, dysuria, flank pain, frequency, hematuria, incontinence, penile discharge, penile sore, pain, testicle pain, testicle swelling, urgency, others Neurological: denies: dizziness, fainting, headache, left sided numbness, left sided weakness, numbness, paresthesia, pre-existing deficit, right sided numbness, right sided weakness, seizure, speech problems, tingling, tremors, weakness, others Musculoskeletal: denies: back pain, gout, joint pain, joint swelling, muscle pain, muscle stiffness, neck pain, others Integumetry: reports: laceration (Umbilical hernia postoperative site); denies: bruises, change in color, change in hair/nails, dryness, lesions, lumps, rash, wounds, others Allergic/Immunocompromised: denies: Difficulty Healing, Frequent Infections, Hives, Itching, others Hematologic/Lymphatic: denies: anemia, blood clots, easy bleeding, easy bruising, swollen glands, others Endocrine: denies: excessive hunger, excessive sweating, excessive thirst, excessive urination, flushing, intolerance to cold, intolerance to heat, unexplained weight gain, unexplained weight loss, others Psychiatric: denies: anxiety, bipolar disorder, depression, hopeless, panic disorder, schizophrenia, sleepless, suicidal, others All Other Systems: Reviewed and Negative Physical Exam General Appearance: No Apparent Distress, Normal HEENT: Normal ENT Inspection, Pharynx Normal Neck: Full Range of Motion, Non-Tender, Normal, Normal Inspection Respiratory: Chest Non-Tender, Lungs Clear, No Accessory Muscle Use, No Respiratory Distress, Normal Breath Sounds Cardiovascular: No Edema, No Murmur, No Gallop, Normal Peripheral Pulses, Regular Rate/Rhythm Breast Exam: Deferred Gastrointestinal: No Organomegaly, Non Tender, No Pulsatile Mass, Normal Bowel Sounds, Soft Genitalia: Deferred Pelvic: Deferred Rectal: Deferred Extremities: No calf tenderness, Normal capillary refill, Normal inspection, Normal range of motion, Non-tender, No pedal edema Musculoskeletal : Apperance: Normal Neurologic: Alert, fiber optics engineer II-XII nml as Tested, No Motor Deficits, Normal Affect, Normal Mood, No Sensory Deficits Cerebellar Function: Normal Reflexes: Normal Skin: Dry, Lacerations (Umbilical hernia postoperative site, erythema), Normal Color, Warm Lymphatic: No Adenopathy Was a procedure done? Was a procedure done?: No Differential Diagnosis (INTG) Differential Diagnosis: Cellulitis, Other (postoperative wound complication) X-Ray, Labs, Meds, VS Vital Signs Date Time Temp Pulse Resp B/P (MAP) Pulse Ox O2 Delivery O2 Flow Rate FiO2 10/21/24 10:54 105 17 117/69 10/21/24 10:51 106 17 97 Room Air* 0 21 10/21/24 10:51 98.3 106 17 117/69 (85) 97 98.3 10/21/24 09:24 126 10/21/24 09:11 98.3 131 18 145/104 96 98.3 Lab Test 10/21/24 09:54 10/21/24 09:41 Range/Units White Blood Count 18.3 H 4.4-10.8 10^3/uL Red Blood Count 5.12 4.5-5.90 10^6/uL Hemoglobin 14.7 13.5-17.5 g/dL Hematocrit 43.9 41.0-53.0 % Mean Corpuscular Volume 85.7 80.0-100.0 fL Mean Corpuscular Hemoglobin 28.7 28.0-32.0 pg Mean Corpuscular Hemoglobin Concent 33.4 32.0-36.0 g/dL Red Cell Distribution Width 14.2 11.8-14.3 % Platelet Count 367 140-450 10^3/uL Mean Platelet Volume 8.0 6.9-10.8 fL Neutrophils (%) (Auto) 78.5 37.0-80.0 % Lymphocytes (%) (Auto) 10.6 10.0-50.0 % Monocytes (%) (Auto) 10.2 0.0-12.0 % Eosinophils (%) (Auto) 0.2 0.0-7.0 % Basophils (%) (Auto) 0.5 0.0-2.0 % Neutrophils # (Auto) 14.4 H 1.6-8.6 10 ^3/uL Lymphocytes # (Auto) 1.9 0.4-5.4 10 ^3/uL Monocytes # (Auto) 1.9 H 0-1.3 10 ^3/uL Eosinophils # (Auto) 0 0-0.8 10 ^3/uL Basophils # (Auto) 0.1 0-0.2 10 ^3/uL Nucleated Red Blood Cells 0.0 % Sodium Level 136 136-145 mmol/L Potassium Level 4.2 3.5-5.1 mmol/L Chloride Level 103 98-107 mmol/L Carbon Dioxide Level 25 20-31 mmol/L Anion Gap 8 5-15 Blood Urea Nitrogen 12 9-23 mg/dL Creatinine 1.08 0.700-1.30 mg/dL Glomerular Filtration Rate Calc 85 >90 mL/min BUN/Creatinine Ratio 11.1 10.0-20.0 Serum Glucose 155 H 74-106 mg/dL Calcium Level 9.4 8.7-10.4 mg/dL Total Bilirubin 1.5 H 0.2-1.0 mg/dL Aspartate Amino Transferase (AST) 14 13-40 U/L Alanine Aminotransferase (ALT) 16 7-40 U/L Alkaline Phosphatase 78 46-116 U/L Total Protein 8.3 H 5.7-8.2 g/dL Albumin 4.8 3.2-4.8 g/dL Lactic Acid Level 1.2 0.4-2.0 mmol/L Current Medications Medications (Trade) Dose Ordered Sig/Oumar Route Start Time Stop Time Status Last Admin Sodium Chloride 1,000 ml @ 1,000 mls/hr Q1H ONCE IV 10/21/24 09:30 10/21/24 10:29 DC 10/21/24 10:50 Ondansetron HCl (Zofran) 4 mg ONCE ONCE IV 10/21/24 09:30 10/21/24 09:31 DC 10/21/24 10:48 Morphine Sulfate 4 mg ONCE ONCE IV 10/21/24 09:30 10/21/24 09:31 DC 10/21/24 10:54 Diphenhydramine HCl (Benadryl Injection) 25 mg ONCE ONCE IV 10/21/24 09:45 10/21/24 09:46 DC 10/21/24 10:04 Dexamethasone Sodium Phosphate (Decadron Injection) 10 mg ONCE ONCE IV 10/21/24 09:45 10/21/24 09:46 DC 10/21/24 10:04 Piperacillin Sod/ Tazobactam Sod 100 ml @ 100 mls/hr ONCE ONCE IV 10/21/24 12:00 10/21/24 12:59 DC 10/21/24 13:28 [place] [id number] Ph: [phone] DIAGNOSTIC IMAGING Diagnostic Imaging Report : [id number] Signed PATIENT: DEIRDRE VAILACCT: [id number] UNIT: [id number] : 1975 LOC: ER ROOM / BED: / AGE / SEX: 48 / M ADM STATUS: REG ER SERVICE 7 ORDERING PHYSICIAN: SHWETHA TAVAREZ MD PROCEDURE(s): ABPLIV - CT AB PEL WITH IV CON ONLY REASON: recent hernia repair with worsening pain and swelling ORDER NUMBER(s): [id number], ACCESSION NUMBER(s): [id number] CLINICAL INFORMATION: 48 years old, Male; recent hernia repair with worsening pain and swelling. TECHNIQUE: Axial CT images of the abdomen and pelvis were obtained after the uneventful administration of 100 mL Omnipaque 300 IV contrast. Coronal and sagittal reformatted images were obtained, reviewed, and stored. All CT scans at this medical facility are performed using dose modulation techniques as appropriate to a performed exam including the following: Automated exposure control was utilized; adjustment of the MA and/or KV according to patient size; and use of iterative reconstruction technique. CTDIvol = 27.6 mGy DLP = 1812.49 mGy-cm COMPARISON: None FINDINGS: Lung bases: Lung bases are clear. Liver: Hepatic steatosis. Biliary: No calcified gallstones or biliary ductal dilatation. Spleen: Unremarkable. Pancreas: Unremarkable. No inflammatory changes, ductal dilatation, or mass identified. Adrenal glands: Unremarkable. No mass. Kidneys: No hydronephrosis. Small bilateral renal cysts. Aorta/Vascular: No aneurysm or significant calcification. Retroperitoneum: No mass or lymphadenopathy. Bowel/mesentery: No small bowel obstruction. No free air or free fluid. Appendix is visualized and appears unremarkable. Pelvic organs: Grossly unremarkable. Bladder: Unremarkable. No mass. Abdominal wall: Postsurgical changes in the ventral abdominal wall near the level of the umbilicus, consistent with reported history of recent hernia repair. There is a complex, ill-defined collection in the subcutaneous tissues adjacent to the surgical site measuring up to 6.4 x 7.1 x 6.4 cm, may be postoperative changes and/or phlegmon. No definite peripherally enhancing abscess demonstrated. There is a catheter extending adjacent to the Postsurgical changes, but does not appear to reach the area of the collection. There is also stranding deep to the rectus abdominis muscles adjacent to the Postsurgical changes with ill-defined area of stranding and possible complex fluid deep to the umbilicus measuring up to 3.4 x 5.7 x 5.1 cm, possible sequela of postsurgical changes and/or phlegmon. Appears to demonstrate peripheral enhancement. Can not exclude abscess. Bones: No acute fracture or focal intraosseous lesion. IMPRESSION: 1. Postsurgical changes consistent with reported history of recent hernia repair near the level of the umbilicus. There are complex collections superficial and deep to the rectus abdominis muscles at the level of the umbilicus, may be due to postoperative changes and/or phlegmon. There is some peripheral enhancement in the deeper collection. Abscess not excluded. Uncertain of the collections communicate. There is a catheter extending adjacent to the area of Postsurgical changes, but does not appear to reach the more superficial collection. Correlate with clinical findings. 2. Hepatic steatosis. 3. Additional findings as described above. ATED BY: DAVONTE DIAZ DO DICTATED DATE/TIME: 10/21/24 115 SIGNED BY: DAVONTE DIAZ DO SIGNED DATE/TIME: 10/21/24 1159 CC: Time of 1ST Reevaluation: 10:15 Reevaluation 1ST: Unchanged Patient Education/Counseling: Diagnosis, Treatment Family Education/Counseling: No Family Present SEPSIS Sepsis Screen Date sepsis recognized/suspect: Oct 21, 2024 Time Sepsis recognized/suspect: 913 Recent Procedure: Yes On Antibiotic Therapy: No Respiratory Rate >20: No Heart Rate >90: Yes Temp<36 C (96.8 F) or >38.3 C: No SBP <90 or MAP <65 mmHG: No New Acute Mental Status Change: No Is the patient on CPAP, BIPAP,: No Physician Orders Electrocardigram (10/21/24 09:16) Blood Culture (10/21/24 09:28) Ct Ab Pel With Iv Con Only (10/21/24 09:28) Vital Signs Date Time Temp Pulse Resp B/P (MAP) Pulse Ox O2 Delivery O2 Flow Rate FiO2 10/21/24 10:54 105 17 117/69 10/21/24 10:51 106 17 97 Room Air* 0 21 10/21/24 10:51 98.3 106 17 117/69 (85) 97 98.3 10/21/24 09:24 126 10/21/24 09:11 98.3 131 18 145/104 96 98.3 Laboratory Tests Test 10/21/24 09:41 10/21/24 09:54 Lactic Acid Level 1.2 mmol/L (0.4-2.0) White Blood Count 18.3 10^3/uL (4.4-10.8) H Medications Medications Dose Ordered Sig/Oumar Route Start Time Stop Time Status Last Admin Dose Admin Dexamethasone Sodium Phosphate 10 mg ONCE ONCE IV 10/21/24 09:45 10/21/24 09:46 DC 10/21/24 10:04 Diphenhydramine HCl 25 mg ONCE ONCE IV 10/21/24 09:45 10/21/24 09:46 DC 10/21/24 10:04 Morphine Sulfate 4 mg ONCE ONCE IV 10/21/24 09:30 10/21/24 09:31 DC 10/21/24 10:54 Ondansetron HCl 4 mg ONCE ONCE IV 10/21/24 09:30 10/21/24 09:31 DC 10/21/24 10:48 Piperacillin Sod/ Tazobactam Sod 100 ml @ 100 mls/hr ONCE ONCE IV 10/21/24 12:00 10/21/24 12:59 DC 10/21/24 13:28 Sodium Chloride 1,000 ml @ 1,000 mls/hr Q1H ONCE IV 10/21/24 09:30 10/21/24 10:29 DC 10/21/24 10:50 Departure 1 Departure Time of Disposition: 13:35 (Patient presented with abdominal pain that was concerning for possible appendicits, gastritis, cholecystitis, colitis, gastroenteritis, sbo, or orther possible surgical emergency. Data: 1. I ordered and reviewed the result of at least 3 labs including a CBC, BMP, and Urinalysis. 2. I independently interpreted the following tests: CT Abdoment and Pelvis is concerning for intra-abdominal abscess .Risk:This patient has a high risk of morbidity due to further diagnostic testing or treatment and may suffer from an acute abdominal process disorder. Workup reveals intra-abdominal abscess and patient should be admitted for further workup. and possible expert consultation. ) Impression: Primary Impression: Intra-abdominal abscess Additional Impression: Intractable abdominal pain Disposition: ADMITTED INPATIENT Admit to: Med Surg Condition: Serious Critical Care Note Critical Care Time?: Yes Critical care comment: Intractable abdominal pain Authorized and Performed by: Shwetha Tavarez MD Total critical care time: Approximately 47 minutes Due to a high probability of clinically significant, life threatening deterioration, the patient required my highest level of preparedness to intervene emergently and I personally spent this critical care time directly and personally managing the patient. This critical care time included obtaining a history; examining the patient; pulse oximetry; ordering and review of studies; arranging urgent treatment with development of a management plan; evaluation of patient's response to treatment; frequent reassessment; and, discussions with other providers. This critical care time was performed to assess and manage the high probability of imminent, life-threatening deterioration that could result in multi-organ failure. It was exclusive of separately billable procedures and treating other patients and teaching time. Please see my other sections and the rest of the note for further information on patient assessment and treatment. Stability Stability form required: No Heart Score Heart Score: Heart Score Response (Comments) Value History N/A 0 EKG N/A 0 Age N/A 0 Risk Factors N/A 0 Troponin N/A 0 Total 0 I personally scribed for SHWETHA TAVAREZ MD ([email or web address]) on 10/21/24 at 10:00. Electronically submitted by Elodia Juarez ([email or web address]). I personally scribed for SHWETHA TAVAREZ MD ([email or web address]) on 10/21/24 at 12:20. Electronically submitted by Elodia Juarez ([email or web address]). SHWETHA TAVAREZ MD Oct 21, 2024 10:00
[2024-10-21] MEDS: diphenhdrAMINE HCL 50 MG/1 ML VL IV ONE (10:04)
[2024-10-21 10:08] LABS: Hematocrit 43.9 % (41.0-53.0); Hemoglobin 14.7 g/dL (13.5-17.5); Mean Corpuscular Hemoglobin 28.7 pg (28.0-32.0); Mean Corpuscular Volume 85.7 fL (80.0-100.0); Nucleated Red Blood Cells % 0.0 %
[2024-10-21] MEDS: IOHEXOL 300 MG/ML 100ML BOTTLE IJ ONE (10:08)
[2024-10-21 10:25] LABS: Alanine Aminotransferase 16 U/L (7-40); Albumin 4.8 g/dL (3.2-4.8); Alkaline Phosphatase 78 U/L (46-116); Anion Gap 8 (5-15); BUN/Creatinine Ratio 11.1 (10.0-20.0); Blood Urea Nitrogen 12 mg/dL (9-23); Calcium 9.4 mg/dL (8.7-10.4); Carbon Dioxide 25 mmol/L (20-31); Chloride 103 mmol/L (98-107); Potassium 4.2 mmol/L (3.5-5.1); Sodium 136 mmol/L (136-145)
[2024-10-21 10:27] LABS: Bilirubin, Total 1.5 mg/dL (0.2-1.0); Glucose 155 mg/dL (74-106); Total Protein 8.3 g/dL (5.7-8.2)
[2024-10-21] MEDS: ONDANSETRON HCL 4 MG/2 ML VIAL IV ONE (10:48)
[2024-10-21] MEDS: SODIUM CHLORIDE 0.9% 1,000 ML IV ONE (10:50)
[2024-10-21 10:51] VITALS: PULSE 106; RESP 17; O2SAT 97
[2024-10-21] MEDS: MORPHINE SULFATE 4 MG/ML SYR/VIAL IV ONE (10:54)
--- NOTE | 2024-10-21 12:01 | DVH ---
CLINICAL INFORMATION: 48 years old, Male; recent hernia repair with worsening pain and swelling. TECHNIQUE: Axial CT images of the abdomen and pelvis were obtained after the uneventful administrati on of 100 mL Omnipaque 300 IV contrast. Coronal and sagittal reformatted images were obtained, review ed, and stored. All CT scans at this medical facility are performed using dose modulation techniques as appropriate to a performed exam including the following: Automated exposure control was utilized; adjustment of the MA and/or KV according to patient size; and use of iterative reconstruction [employer]Trip ue. CTDIvol = 27.6 mGy DLP = 1812.49 mGy-cm COMPARISON: None FINDINGS: Lung bases: Lung bases are clear. Liver: Hepatic steatosis. Biliary: No calcified gallstones or biliary ductal dilatation. Spleen: Unremarkable. Pancreas: Unremarkable. No inflammatory changes, ductal dilatation, or mass identified. Adrenal glands: Unremarkable. No mass. Kidneys: No hydronephrosis. Small bilateral renal cysts. Aorta/Vascular: No aneurysm or significant calcification. Retroperitoneum: No mass or lymphadenopathy. Bowel/mesentery: No small bowel obstruction. No free air or free fluid. Appendix is visualized and ap pears unremarkable. Pelvic organs: Grossly unremarkable. Bladder: Unremarkable. No mass. Abdominal wall: Postsurgical changes in the ventral abdominal wall near the level of the umbilicus, c onsistent with reported history of recent hernia repair. There is a complex, ill-defined collection in the subcutaneous tissues adjacent to the surgical site measuring up to 6.4 x 7.1 x 6.4 cm, may be postoperative changes and/or phlegmon. No definite peripherally enhancing abscess demonstrated. There is a catheter extending adjacent to the Postsurgical changes, but does not appear to reach the area of the collection. There is also stranding deep to the rectus abdominis muscles adjacent to the Posts urgical changes with ill-defined area of stranding and possible complex fluid deep to the umbilicus m easuring up to 3.4 x 5.7 x 5.1 cm, possible sequela of postsurgical changes and/or phlegmon. Appears to demonstrate peripheral enhancement. Can not exclude abscess. Bones: No acute fracture or focal intraosseous lesion. IMPRESSION: 1. Postsurgical changes consistent with reported history of recent hernia repair near the level of th e umbilicus. There are complex collections superficial and deep to the rectus abdominis muscles at th e level of the umbilicus, may be due to postoperative changes and/or phlegmon. There is some peripher al enhancement in the deeper collection. Abscess not excluded. Uncertain of the collections communi ralph. There is a catheter extending adjacent to the area of Postsurgical changes, but does not appear to reach the more superficial collection. Correlate with clinical findings. 2. Hepatic steatosis. 3. Additional findings as described above.
[2024-10-21] MEDS: PIPERACILLIN-TAZO 4.5GM 100 ML IV ONE (13:28)
[2024-10-21] MEDS ORDERED: ONDANSETRON HCL 4 MG/2 ML VIAL IV PRN (15:30)
[2024-10-21] MEDS ORDERED: ACETAMINOPHEN 325 MG TAB PO PRN (15:30)
[2024-10-21] MEDS ORDERED: VANCOMYCIN PER PHARMACY 0 MG IV SCH (15:30)
[2024-10-21] MEDS ORDERED: DEXTROSE (50%) 50ML SYRG IV PRN ×2 (15:30→16:00)
--- NOTE | 2024-10-21 15:50 | DVHHP2 ---
History of Present Illness Reason for Visit: Periumbilical erythema History of Present Illness Jaxson Pacheco is a 48-year-old male with past medical history of diabetes, GERD, hyperlipidemia, hypertension, kidney stones, and recent hernia repair on October 05, [address] Warner who presents to the ED with erythema around his umbilicus where he had recent surgery. Patient also presents with a MICHAEL drain and abdominal binder. Patient reports that there is discomfort and states that the MICHAEL drain has been not functioning correctly which is why he places in his pocket. Patient reports that since his surgery the pain has been worsening. Patient denies any recent trauma or injury, recent sick contacts, recent ingestion of spoiled food, recent travels, chest pain, shortness of breath, fever, chills, lightheadedness, weakness, dizziness, nausea, vomiting, diarrhea, or urinary symptoms. Cardiovascular: hyperipidemia GI: GERD Endocrine: Diabetes Past Medical History Nephrolithiasis Past Surgical History: Hernia Repair Family History: Other (Mom with cochlear implant and liver transplant) Smoke: No ALCOHOL: occassional Drugs: None Lives: with Family Domestic Violence: Neg Review of Systems Skin: Other (Erythema around the periumbilical area) Allergies: Uncoded Allergies: SEAFOOD (Allergy, Unknown, 05/13/23) Medications Current Medications Medications Dose Ordered Sig/Oumar Route Start Time Stop Time Status Last Admin Dose Admin Piperacillin Sod/ Tazobactam Sod 100 ml @ 25 mls/hr Q8HR IV 10/21/24 22:00 UNV Vancomycin HCl 0 ml @ 0 mls/hr UD IV 10/21/24 15:30 UNV Diagnostic Test (Pha) 1 strip ACHS 10/21/24 17:00 UNV Insulin Human Regular ACHS SC 10/21/24 17:00 UNV Dextrose 50 ml UD PRN IV 10/21/24 15:30 UNV Sodium Chloride 1,000 ml @ 60 mls/hr [id number] IV 10/21/24 15:30 UNV Acetaminophen/ Hydrocodone Bitart 1 tab Q4HP PRN PO 10/21/24 15:30 UNV Ondansetron HCl 4 mg Q4HP PRN IV 10/21/24 15:30 UNV Acetaminophen 650 mg Q6HP PRN PO 10/21/24 15:30 UNV Morphine Sulfate 2 mg Q4HPRN PRN IV 10/21/24 15:30 UNV Exam Vital Signs Vital Signs Date Time Temp Pulse Resp B/P (MAP) Pulse Ox O2 Delivery O2 Flow Rate FiO2 10/21/24 13:37 98.3 95 17 118/65 (82) 98.3 10/21/24 10:51 97 Room Air* 0 21 General Appearance: Alert, Oriented X3, Cooperative, No acute distress HEENT: Atraumatic, PERRLA, EOMI, Mucous membr. moist/pink Respiratory: Clear to auscultation, Normal air movement Cardiovascular: Regular rate, Normal S1, Normal S2, No murmurs Abdominal: Normal bowel sounds, Soft Extremities: No clubbing, No cyanosis, Normal pulses Neuro: Normal gait, Normal speech, Strength at 5/5 X4 ext, Normal tone, Sensation intact Psych/Mental Status: Mental status NL, Mood NL Labs/Xrays Labs Test 10/21/24 09:54 10/21/24 09:41 Range/Units White Blood Count 18.3 H 4.4-10.8 10^3/uL Red Blood Count 5.12 4.5-5.90 10^6/uL Hemoglobin 14.7 13.5-17.5 g/dL Hematocrit 43.9 41.0-53.0 % Mean Corpuscular Volume 85.7 80.0-100.0 fL Mean Corpuscular Hemoglobin 28.7 28.0-32.0 pg Mean Corpuscular Hemoglobin Concent 33.4 32.0-36.0 g/dL Red Cell Distribution Width 14.2 11.8-14.3 % Platelet Count 367 140-450 10^3/uL Mean Platelet Volume 8.0 6.9-10.8 fL Neutrophils (%) (Auto) 78.5 37.0-80.0 % Lymphocytes (%) (Auto) 10.6 10.0-50.0 % Monocytes (%) (Auto) 10.2 0.0-12.0 % Eosinophils (%) (Auto) 0.2 0.0-7.0 % Basophils (%) (Auto) 0.5 0.0-2.0 % Neutrophils # (Auto) 14.4 H 1.6-8.6 10 ^3/uL Lymphocytes # (Auto) 1.9 0.4-5.4 10 ^3/uL Monocytes # (Auto) 1.9 H 0-1.3 10 ^3/uL Eosinophils # (Auto) 0 0-0.8 10 ^3/uL Basophils # (Auto) 0.1 0-0.2 10 ^3/uL Nucleated Red Blood Cells 0.0 % Sodium Level 136 136-145 mmol/L Potassium Level 4.2 3.5-5.1 mmol/L Chloride Level 103 98-107 mmol/L Carbon Dioxide Level 25 20-31 mmol/L Anion Gap 8 5-15 Blood Urea Nitrogen 12 9-23 mg/dL Creatinine 1.08 0.700-1.30 mg/dL Glomerular Filtration Rate Calc 85 >90 mL/min BUN/Creatinine Ratio 11.1 10.0-20.0 Serum Glucose 155 H 74-106 mg/dL Calcium Level 9.4 8.7-10.4 mg/dL Total Bilirubin 1.5 H 0.2-1.0 mg/dL Aspartate Amino Transferase (AST) 14 13-40 U/L Alanine Aminotransferase (ALT) 16 7-40 U/L Alkaline Phosphatase 78 46-116 U/L Total Protein 8.3 H 5.7-8.2 g/dL Albumin 4.8 3.2-4.8 g/dL Lactic Acid Level 1.2 0.4-2.0 mmol/L CLINICAL INFORMATION: 48 years old, Male; recent hernia repair with worsening pain and swelling. TECHNIQUE: Axial CT images of the abdomen and pelvis were obtained after the uneventful administration of 100 mL Omnipaque 300 IV contrast. Coronal and sagittal reformatted images were obtained, reviewed, and stored. All CT scans at this medical facility are performed using dose modulation techniques as appropriate to a performed exam including the following: Automated exposure control was utilized; adjustment of the MA and/or KV according to patient size; and use of iterative reconstruction technique. CTDIvol = 27.6 mGy DLP = 1812.49 mGy-cm COMPARISON: None FINDINGS: Lung bases: Lung bases are clear. Liver: Hepatic steatosis. Biliary: No calcified gallstones or biliary ductal dilatation. Spleen: Unremarkable. Pancreas: Unremarkable. No inflammatory changes, ductal dilatation, or mass identified. Adrenal glands: Unremarkable. No mass. Kidneys: No hydronephrosis. Small bilateral renal cysts. Aorta/Vascular: No aneurysm or significant calcification. Retroperitoneum: No mass or lymphadenopathy. Bowel/mesentery: No small bowel obstruction. No free air or free fluid. Appendix is visualized and appears unremarkable. Pelvic organs: Grossly unremarkable. Bladder: Unremarkable. No mass. Abdominal wall: Postsurgical changes in the ventral abdominal wall near the level of the umbilicus, consistent with reported history of recent hernia repair. There is a complex, ill-defined collection in the subcutaneous tissues adjacent to the surgical site measuring up to 6.4 x 7.1 x 6.4 cm, may be postoperative changes and/or phlegmon. No definite peripherally enhancing abscess demonstrated. There is a catheter extending adjacent to the Postsurgical changes, but does not appear to reach the area of the collection. There is also stranding deep to the rectus abdominis muscles adjacent to the Postsurgical changes with ill-defined area of stranding and possible complex fluid deep to the umbilicus measuring up to 3.4 x 5.7 x 5.1 cm, possible sequela of postsurgical changes and/or phlegmon. Appears to demonstrate peripheral enhancement. Can not exclude abscess. Bones: No acute fracture or focal intraosseous lesion. IMPRESSION: 1. Postsurgical changes consistent with reported history of recent hernia repair near the level of the umbilicus. There are complex collections superficial and deep to the rectus abdominis muscles at the level of the umbilicus, may be due to postoperative changes and/or phlegmon. There is some peripheral enhancement in the deeper collection. Abscess not excluded. Uncertain of the collections communicate. There is a catheter extending adjacent to the area of Postsurgical changes, but does not appear to reach the more superficial collection. Correlate with clinical findings. 2. Hepatic steatosis. 3. Additional findings as described above. SEPSIS Sepsis Screen Date sepsis recognized/suspect: Oct 21, 2024 Time Sepsis recognized/suspect: 1338 Recent Procedure: Yes On Antibiotic Therapy: No Respiratory Rate >20: No Heart Rate >90: Yes Temp<36 C (96.8 F) or >38.3 C: No SBP <90 or MAP <65 mmHG: No New Acute Mental Status Change: No Is the patient on CPAP, BIPAP,: No Physician Orders Electrocardigram (10/21/24 09:16) Blood Culture (10/21/24 09:28) Ct Ab Pel With Iv Con Only (10/21/24 09:28) * Surgical Consult (10/21/24 ) Piperacillin-Tazob 3.375gm (Zosyn 3.375g (10/21/24 22:00) Vancomycin Per Pharmacy (10/21/24 15:30) Wound Culture W/ Gs (10/21/24 15:30) Glucose Blood (Accu-Chek Comfort Curve T (10/21/24 17:00) Insulin R (Human) (Insulin R) (10/21/24 17:00) Dextrose 50% Syringe (10/21/24 15:30) Admit (10/21/24 15:30) Allergies (10/21/24 15:30) Code Status (10/21/24 15:30) Sodium Chloride 0.9% (10/21/24 15:30) Hydrocodone-Acet 5/325mg Tab ([place] 32 (10/21/24 15:30) Ondansetron Hcl (Zofran) (10/21/24 15:30) Complete Blood Count (10/22/24 04:00) Comprehensive Metabolic Panel (10/22/24 04:00) Acetaminophen Tablet (Tylenol Tablet) (10/21/24 15:30) Morphine Sulfate Injection (10/21/24 15:30) Sequential Compression Device (10/21/24 ) Urinalysis (10/21/24 15:35) Famotidine Tablet (Pepcid Tablet) (10/21/24 22:00) Pantoprazole Tablet (Protonix Tablet) (10/22/24 10:00) (Nf) Atorvastatin Calcium (Lipitor) (10/22/24 10:00) (Nf) Losartan Potassium & Hydrochlo (Hyz (10/22/24 10:00) Vital Signs Date Time Temp Pulse Resp B/P (MAP) Pulse Ox O2 Delivery O2 Flow Rate FiO2 10/21/24 13:37 98.3 95 17 118/65 (82) 98.3 10/21/24 13:35 95 17 118/65 10/21/24 10:54 105 17 117/69 10/21/24 10:51 106 17 97 Room Air* 0 21 10/21/24 10:51 98.3 106 17 117/69 (85) 97 98.3 10/21/24 09:24 126 10/21/24 09:11 98.3 131 18 145/104 96 98.3 Laboratory Tests Test 10/21/24 09:41 10/21/24 09:54 Lactic Acid Level 1.2 mmol/L (0.4-2.0) White Blood Count 18.3 10^3/uL (4.4-10.8) H Medications Medications Dose Ordered Sig/Oumar Route Start Time Stop Time Status Last Admin Dose Admin Dexamethasone Sodium Phosphate 10 mg ONCE ONCE IV 10/21/24 09:45 10/21/24 09:46 DC 10/21/24 10:04 10 MG Diphenhydramine HCl 25 mg ONCE ONCE IV 10/21/24 09:45 10/21/24 09:46 DC 10/21/24 10:04 25 MG Morphine Sulfate 4 mg ONCE ONCE IV 10/21/24 09:30 10/21/24 09:31 DC 10/21/24 10:54 4 MG Ondansetron HCl 4 mg ONCE ONCE IV 10/21/24 09:30 10/21/24 09:31 DC 10/21/24 10:48 4 MG Piperacillin Sod/ Tazobactam Sod 100 ml @ 100 mls/hr ONCE ONCE IV 10/21/24 12:00 10/21/24 12:59 DC 10/21/24 13:28 100 MLS/HR Sodium Chloride 1,000 ml @ 1,000 mls/hr Q1H ONCE IV 10/21/24 09:30 10/21/24 10:29 DC 10/21/24 10:50 1,000 MLS/HR Assessment/Plan Assessment/Plan Assessment Erythema around periumbilical likely due to intra-abdominal abscess Leukocytosis likely due to abscess Status tachycardia Hyperglycemia Hyperbilirubinemia Hepatic steatosis Morbid obesity History of hernia repair with MICHAEL drain History of GERD History of diabetes History of hyperlipidemia History of hypertension History of kidney stones History of recent hernia repair Plan [facility] [place] IV antibiotics-Vancomycin +Zosyn Antihistamines Antiemetics Pain management NS 1 L given in ED CT abdomen and pelvis Blood cultures Lactic level EKG UA Hemoglobin A1c ISS and Accu-Cheks Wound culture with Gram stain IV fluids NPO until surgery sees patient Home medications reconciled DVT prophylaxis-not indicated patient ambulating PUD prophylaxis-PPIs Discussed plan of care with patient and nurse General surgery consult Counseled patient on lifestyle modifications, diet, and exercise [id number] Preventive counseling healthy eating habits, physical activity, and regular checkups Plan discussed with: Patient My Orders Orders - GREGORY SHELTON Procedure Category Date Status Time Piperacillin-Tazob PHA 10/21/24 Logged 3.375gm (Zosyn 3.375g 22:00 Vancomycin Per PHA 10/21/24 Logged Pharmacy 15:30 Wound Culture W/ Gs GRICEL 10/21/24 Transmitted 15:30 Glucose Blood PHA 10/21/24 Logged (Accu-Chek Comfort 17:00 Insulin R (Human) PHA 10/21/24 Logged (Insulin R) 17:00 Dextrose 50% Syringe PHA 10/21/24 Logged 15:30 Admit ADMIT 10/21/24 Transmitted 15:30 Allergies JERAMY 10/21/24 In Process 15:30 Code Status CODE 10/21/24 Transmitted 15:30 Sodium Chloride 0.9% PHA 10/21/24 Logged 15:30 Hydrocodone-Acet PHA 10/21/24 Logged 5/325mg Tab ([place] 15:30 Ondansetron Hcl PHA 10/21/24 Logged (Zofran) 15:30 Complete Blood Count LAB 10/22/24 Verified 04:00 Comprehensive LAB 10/22/24 Verified Metabolic Panel 04:00 Acetaminophen Tablet PHA 10/21/24 Logged (Tylenol Tablet) 15:30 Morphine Sulfate PHA 10/21/24 Logged Injection 15:30 Sequential JERAMY 10/21/24 In Process Compression Device Urinalysis LAB 10/21/24 Transmitted 15:35 Famotidine Tablet PHA 10/21/24 Verified (Pepcid Tablet) 22:00 Pantoprazole Tablet PHA 10/22/24 Verified (Protonix Tablet) 10:00 (Nf) Atorvastatin PHA 10/22/24 Verified Calcium (Lipitor) 10:00 (Nf) Losartan PHA 10/22/24 Verified Potassium & Hydrochlo 10:00 Date of Service: Oct 21, 2024 Billing Provider: GREGORY SHELTON Common Visit Codes: [id number] INP/OBS CARE (HIGH) Secondary Visit Codes: [id number] COUNSELING IND GREGORY SHELTON Oct 21, 2024 15:50
[2024-10-21 16:25] VITALS: BP 104/68; PULSE 93; RESP 18; TEMP 97.4; O2SAT 92
[2024-10-21] MEDS: InsuLIN REG 1unit/0.01ml Soln (100units/ml) SC SCH (17:00)
[2024-10-21] MEDS ORDERED: InsuLIN REG 1unit/0.01ml Soln (100units/ml) SC SCH (17:00)
[2024-10-21] MEDS ORDERED: ACCU-CHEK COMFORT CURVE STRIP VI SCH (17:00)
[2024-10-21] MEDS: ACCU-CHEK COMFORT CURVE STRIP VI SCH (17:00)
--- NOTE | 2024-10-21 17:59 | DVHINCON2 ---
Date of service: Oct 21, 2024 Family History: Patient reports no known family medical history. Allergies: Uncoded Allergies: SEAFOOD (Allergy, Unknown, 05/13/23) Home Meds Active Scripts Amoxicillin & Pot Clavulanate (Augmentin) 500 Mg Tab, 1 TAB PO BID for 5 Days, #10 TAB Prov:JOLENE STEVENS [employer] 10/09/24 Hydrocodone-Acetaminophen (Hydrocodone Bitartrate/AC 5-325 mg) 1 Tab Tab, 1 TAB PO Q6HP PRN for 5 Days, #15 TAB Prov:JOLENE STEVENS [employer] 10/09/24 Pantoprazole Sodium Sesquihydr (Protonix) 40 Mg Tab, 40 MG PO DAILY for 30 Days, #30 TAB Prov:JOLENE STEVENS [employer] 10/09/24 Clonidine Hydrochloride (Clonidine Hcl) 0.2 Mg Tab, 1 TAB PO BIDP PRN for 15 Days, #30 TAB 0 Refills Prov:JOLENE STEVENS [employer] 10/09/24 Losartan Potassium & Hydrochlo (Hyzaar) 1 Tab Tab, 1 TAB PO DAILY for 30 Days, #30 TAB 1 Refill Prov:JOLENE STEVENS [employer] 10/09/24 Clonidine Hydrochloride (Clonidine Hcl) 0.2 Mg Tab, 1 TAB PO BIDP PRN, #20 TAB 0 Refills To be utilized if systolic blood pressures above 160 or diastolic pressures above 90 Prov:YURI RON PAC 05/14/23 Reported Medications Semaglutide (Ozempic) 8 Mg/3 Ml Inj, 2 MG SC QWEEKLY 10/04/24 Atorvastatin Calcium (Lipitor) 80 Mg Tab, 1 TAB PO DAILY, #30 TAB 5 Refills 10/04/24 Famotidine (Famotidine) 20 Mg Tab, 20 MG PO BID for 30 Days, MG 10/04/24 Current Medications Current Medications Medications (Trade) Dose Ordered Sig/Oumar Route PRN Reason Start Time Stop Time Status Last Admin Piperacillin Sod/ Tazobactam Sod 100 ml @ 25 mls/hr Q8HR IV 10/21/24 22:00 UNV Vancomycin HCl 0 ml @ 0 mls/hr UD IV 10/21/24 15:30 Diagnostic Test (Pha) (Accu-Chek Comfort Curve T) 1 strip ACHS 10/21/24 17:00 Insulin Human Regular (InsuLIN R) ACHS SC 10/21/24 17:00 Dextrose 50 ml UD PRN IV Blood Sugar LESS THAN 60 10/21/24 15:30 Sodium Chloride 1,000 ml @ 60 mls/hr [id number] IV 10/21/24 15:30 Acetaminophen/ Hydrocodone Bitart ([place] 5/325MG Tab) 1 tab Q4HP PRN PO MODERATE PAIN (4-6 PAIN SCALE) 10/21/24 15:30 Ondansetron HCl (Zofran) 4 mg Q4HP PRN IV NAUSEA / VOMITING 10/21/24 15:30 UNV Acetaminophen (Tylenol Tablet) 650 mg Q6HP PRN PO PAIN SCALE 1-3 OR TEMP>100.4 10/21/24 15:30 Morphine Sulfate 2 mg Q4HPRN PRN IV SEVERE PAIN (7-10 PAIN SCALE) 10/21/24 15:30 Famotidine (Pepcid Tablet) 20 mg BID PO 10/21/24 22:00 UNV Pantoprazole Sodium (Protonix Tablet) 40 mg DAILY PO 10/22/24 10:00 UNV Patient Own Medication 1 tab DAILY PO 10/22/24 10:00 UNV Patient Own Medication 1 tab DAILY PO 10/22/24 10:00 UNV Diagnostic Test (Pha) (Accu-Chek Comfort Curve T) 1 strip ACHS 10/21/24 17:00 10/21/24 17:46 DC Insulin Human Regular (InsuLIN R) ACHS SC 10/21/24 17:00 10/21/24 17:46 DC Dextrose 50 ml UD PRN IV Blood Sugar LESS THAN 60 10/21/24 16:00 10/21/24 17:46 DC Vital Signs Vital Signs Date Time Temp Pulse Resp B/P (MAP) Pulse Ox O2 Delivery O2 Flow Rate FiO2 10/21/24 16:25 97.4 93 18 104/68 (80) 92 97.4 10/21/24 10:51 Room Air* 0 21 Labs/Diagnostic Data Labs Test 10/21/24 09:54 10/21/24 09:41 Range/Units White Blood Count 18.3 H 4.4-10.8 10^3/uL Red Blood Count 5.12 4.5-5.90 10^6/uL Hemoglobin 14.7 13.5-17.5 g/dL Hematocrit 43.9 41.0-53.0 % Mean Corpuscular Volume 85.7 80.0-100.0 fL Mean Corpuscular Hemoglobin 28.7 28.0-32.0 pg Mean Corpuscular Hemoglobin Concent 33.4 32.0-36.0 g/dL Red Cell Distribution Width 14.2 11.8-14.3 % Platelet Count 367 140-450 10^3/uL Mean Platelet Volume 8.0 6.9-10.8 fL Neutrophils (%) (Auto) 78.5 37.0-80.0 % Lymphocytes (%) (Auto) 10.6 10.0-50.0 % Monocytes (%) (Auto) 10.2 0.0-12.0 % Eosinophils (%) (Auto) 0.2 0.0-7.0 % Basophils (%) (Auto) 0.5 0.0-2.0 % Neutrophils # (Auto) 14.4 H 1.6-8.6 10 ^3/uL Lymphocytes # (Auto) 1.9 0.4-5.4 10 ^3/uL Monocytes # (Auto) 1.9 H 0-1.3 10 ^3/uL Eosinophils # (Auto) 0 0-0.8 10 ^3/uL Basophils # (Auto) 0.1 0-0.2 10 ^3/uL Nucleated Red Blood Cells 0.0 % Sodium Level 136 136-145 mmol/L Potassium Level 4.2 3.5-5.1 mmol/L Chloride Level 103 98-107 mmol/L Carbon Dioxide Level 25 20-31 mmol/L Anion Gap 8 5-15 Blood Urea Nitrogen 12 9-23 mg/dL Creatinine 1.08 0.700-1.30 mg/dL Glomerular Filtration Rate Calc 85 >90 mL/min BUN/Creatinine Ratio 11.1 10.0-20.0 Serum Glucose 155 H 74-106 mg/dL Hemoglobin A1c 6.6 H <5.7 % A1C Calcium Level 9.4 8.7-10.4 mg/dL Total Bilirubin 1.5 H 0.2-1.0 mg/dL Aspartate Amino Transferase (AST) 14 13-40 U/L Alanine Aminotransferase (ALT) 16 7-40 U/L Alkaline Phosphatase 78 46-116 U/L Total Protein 8.3 H 5.7-8.2 g/dL Albumin 4.8 3.2-4.8 g/dL Lactic Acid Level 1.2 0.4-2.0 mmol/L Assessment [id number] C/O MILD ABD PAIN SWELLING REDNESS PERIUMBILICAL S/P RECENT VENTRAL/UMBILICAL HERNIA REPAIR AFEBRILE VSS NO HERNIA RECURRENCE R/O SEROMA/HEMATOMA/CELLULITIS MONITOR DRAINAGE IV ABX CLOSE OBSERVATION CONSIDER DRAIN REPLACEMENT BASED ON ONGOING EVAL Plan discussed with: Patient SOLOMON ROBERTSON MD Oct 21, 2024 17:59
--- NOTE | 2024-10-21 18:14 | DVHINCON2 ---
DATE OF CONSULTATION: 10/21/2024 HISTORY OF PRESENT ILLNESS: The patient is 48 years old, known to me from previous surgery, coming in with mild abdominal pain and swelling around the umbilicus location. He had a recent ventral and umbilical hernia repair done for an incarcerated ventral and umbilical hernia and he also had a drain placed that was in place before he was discharged and he did very well from his surgery with no complications with no recurrence and he comes back with abdominal pain and some swelling around the umbilicus and some mild redness. No fever, no chills. No nausea or vomiting. No constipation or diarrhea. No hematochezia or melena. No bleeding per rectum. PAST MEDICAL HISTORY: Diabetes, GERD, hypertension, kidney stones. PAST SURGICAL HISTORY: As mentioned above. PHYSICAL EXAMINATION: VITAL SIGNS: Afebrile, stable signs. HEENT: With no evidence of pallor, cyanosis, or jaundice. NECK: Supple, nontender with no thyromegaly or lymphadenopathy. CHEST AND LUNGS: Clear. HEART: Within normal limits. ABDOMEN: Soft. He does have mild erythema around the umbilicus with mild swelling and he possibly has a nonfunctioning drainage tube. The CT scan that was done is saying there is a complex collection in the subcutaneous tissues that is possibly related to postoperative changes or a seroma. Abscess cannot be ruled out. There is a catheter adjacent to this as well but does not appear to reach the area of collection. It could be displaced. Other than that, there is no recurrence. CLINICAL IMPRESSION: My clinical impression is that he is status post ventral umbilical hernia repair with possibility of cellulitis and seroma. PLAN: The plan would be to manage him conservatively, keep him under close observation, give him intravenous antibiotics, and monitor his drainage and then if the drainage tube needs to be removed and replaced, that will be based upon ongoing evaluation. MD REBECCA Martini/CHUCK TID: [id number] RECEIPT: [id number] cc: SHELLEY SHIN
[2024-10-21 18:59] VITALS: PULSE 94; RESP 18; O2SAT 95
[2024-10-21 20:00] VITALS: PULSE 94; O2SAT 95
[2024-10-21] MEDS: VANCOMYCIN 1GM/250ML KIT 250 ML IV SCH (20:00)
[2024-10-21 21:00] VITALS: BP 152/85; PULSE 94; RESP 18; TEMP 97.5; O2SAT 95
[2024-10-21] MEDS ORDERED: FAMOTIDINE 20 MG TAB PO SCH (22:00)
[2024-10-21] MEDS: ATORVASTATIN 20 MG TAB PO SCH (22:30)
[2024-10-21] MEDS: PIPERACILLIN-TAZOB 3.375GM 100 ML IV SCH (22:30)
[2024-10-21] MEDS: SODIUM CHLORIDE 0.9% 1,000 ML IV SCH (22:30)
[2024-10-22] VITALS (7 sets, daily range): BP systolic 115–145; BP diastolic 79–87; PULSE 76–87; RESP 18–20; TEMP 97.2–98; O2SAT 90–99
[2024-10-22] MEDS: PANTOPRAZOLE 40 MG TAB PO SCH (05:58)
[2024-10-22 07:18] LABS: Hematocrit 38.4 % (41.0-53.0); Hemoglobin 13.2 g/dL (13.5-17.5); Mean Corpuscular Hemoglobin 29.3 pg (28.0-32.0); Mean Corpuscular Volume 85.2 fL (80.0-100.0); Nucleated Red Blood Cells % 0.0 %
[2024-10-22 07:44] LABS: Alanine Aminotransferase 15 U/L (7-40); Alkaline Phosphatase 75 U/L (46-116); Anion Gap 9 (5-15); BUN/Creatinine Ratio 13.1 (10.0-20.0); Blood Urea Nitrogen 13 mg/dL (9-23); Calcium 9.4 mg/dL (8.7-10.4); Carbon Dioxide 24 mmol/L (20-31); Chloride 104 mmol/L (98-107); Potassium 4.5 mmol/L (3.5-5.1); Sodium 137 mmol/L (136-145); Total Protein 7.7 g/dL (5.7-8.2)
[2024-10-22 07:45] LABS: Albumin 4.3 g/dL (3.2-4.8); Bilirubin, Total 0.6 mg/dL (0.2-1.0)
[2024-10-22 08:14] LABS: Glucose 199 mg/dL (74-106)
[2024-10-22] MEDS: HYDROcodone-ACET 5/325MG TAB PO PRN (09:43)
[2024-10-22] MEDS ORDERED: PATIENTS OWN MEDICATION (Losartan Potassium & Hydrochlo (Hyzaar) 1 TAB) PO SCH (10:00)
--- NOTE | 2024-10-22 10:49 | ECG ---
[facility] Test Date: 2024-10-21 Test Time: 09:24:11 Pat Name: DEIRDRE VAIL Department: ED Room: 0292 A Gender: M Diploma Maker: NAHID : [id number] Requested By: EMERGENCY EMERGENCY Order Number: [id number] Reading MD: Rajinder Benítez Measurements Intervals [place] Rate: 126 P: 41 VT: 151 QRS: 51 QRSD: 94 T: 17 QT: 309 QTc: 448 Interpretive Statements Sinus tachycardia Baseline wander in lead(s) III,aVL,aVF Electronically Signed On 10-23-2024 16:21:19 PDT by Rajinder Benítez Please click the below link to view image of tracing.
--- NOTE | 2024-10-22 12:19 | DVHPN2 ---
Reviewed: Care Plan, H&P, Labs, Medications, Previous Orders, Radiology Changes from previous H/P or p: No Changes Skin: Other (Erythema around the periumbilical area) Objective Vitals Vital Signs Date Time Temp Pulse Resp B/P (MAP) Pulse Ox O2 Delivery O2 Flow Rate FiO2 10/22/24 09:27 97.6 76 19 115/79 (91) 96 97.6 10/22/24 08:00 Room Air* 0 21 Intake/Output Intake and Output 10/22/24 07:00 Intake Total 1600 ml Balance 1600 ml Intake Oral 500 ml IV Total 1100 ml # Voids 1 Medications Current Medications Medications Dose Ordered Sig/Oumar Route Start Time Stop Time Status Last Admin Dose Admin Piperacillin Sod/ Tazobactam Sod 100 ml @ 25 mls/hr Q8HR IV 10/21/24 22:00 10/22/24 05:58 25 MLS/HR Vancomycin HCl 0 ml @ 0 mls/hr UD IV 10/21/24 15:30 Diagnostic Test (Pha) 1 strip ACHS 10/21/24 17:00 10/22/24 11:32 1 STRIP Insulin Human Regular ACHS SC 10/21/24 17:00 10/22/24 11:32 4 UNITS Dextrose 50 ml UD PRN IV 10/21/24 15:30 Sodium Chloride 1,000 ml @ 60 mls/hr [id number] IV 10/21/24 15:30 10/22/24 09:38 60 MLS/HR Acetaminophen/ Hydrocodone Bitart 1 tab Q4HP PRN PO 10/21/24 15:30 10/22/24 09:43 1 TAB Ondansetron HCl 4 mg Q4HP PRN IV 10/21/24 15:30 Acetaminophen 650 mg Q6HP PRN PO 10/21/24 15:30 Morphine Sulfate 2 mg Q4HPRN PRN IV 10/21/24 15:30 Famotidine 20 mg BID PO 10/21/24 22:00 Hold Pantoprazole Sodium 40 mg DAILY@0700 PO 10/22/24 07:00 10/22/24 05:58 40 MG Atorvastatin Calcium 80 mg HS PO 10/21/24 22:00 10/21/24 22:30 80 MG Patient Own Medication 1 tab DAILY PO 10/22/24 10:00 Hold Vancomycin HCl 250 ml @ 200 mls/hr Q8H IV 10/21/24 18:00 10/22/24 09:36 200 MLS/HR Laboratory Results Laboratory Tests 10/22/24 05:54 Chemistry Test 10/22/24 05:54 Albumin 4.3 g/dL (3.2-4.8) Calcium Level 9.4 mg/dL (8.7-10.4) Total Protein 7.7 g/dL (5.7-8.2) LFT Test 10/22/24 05:54 Alanine Aminotransferase (ALT) 15 U/L (7-40) Alkaline Phosphatase 75 U/L (46-116) Aspartate Amino Transferase (AST) 16 U/L (13-40) Total Bilirubin 0.6 mg/dL (0.2-1.0) Microbiology Microbiology Date/Time Source Procedure Growth Status 10/21/24 09:54 Blood Blood Culture - Preliminary NO GROWTH AFTER 24 HOURS OF INCUBATION. Resulted Labs and/or images reviewed: Labs reviewed by me, Image(s) reviewed by me Assessment/Plan Assessment/Plan Acute Abdominal pain Status post recent ventral hernia repair with mesh by Dr. Lidia Warner, consult by Dr. Lidia Warner appreciated Possible seroma hematoma/cellulitis: Zosyn vancomycin Hypertension Diabetes Hypercholesterolemia History of kidney stones GERD Time Spent 55 minutes Advanced care planning time 20 minutes Blood cultures negative Wound cultures pending Plan discussed with: Patient Date of Service: Oct 22, 2024 Billing Provider: JEANINE GAMA MD Common Visit Codes: [id number] INP/OBS CARE(HIGH) Secondary Visit Codes: [id number] CARE PLAN 30 MINUTES JEANINE GAMA MD Oct 22, 2024 12:19
--- NOTE | 2024-10-22 14:59 | DVHPN2 ---
Progress Note Date Seen: Oct 22, 2024 Medical Necessity Reason Pt with a Central, PICC or Fol: No Objective vital signs Vital Sign Date Time Temp Pulse Resp B/P (MAP) Pulse Ox O2 Delivery O2 Flow Rate FiO2 10/22/24 13:00 97.2 82 19 124/82 (96) 94 97.2 10/22/24 08:00 Room Air* 0 21 Total Intake and Output 10/21/24 10/21/24 10/22/24 15:00 23:00 07:00 Intake Total 1000 ml 100 ml 500 ml Balance 1000 ml 100 ml 500 ml medications Current Medications Medications Dose Ordered Sig/Oumar Route Start Time Stop Time Status Last Admin Dose Admin Piperacillin Sod/ Tazobactam Sod 100 ml @ 25 mls/hr Q8HR IV 10/21/24 22:00 10/22/24 14:13 25 MLS/HR Vancomycin HCl 0 ml @ 0 mls/hr UD IV 10/21/24 15:30 Diagnostic Test (Pha) 1 strip ACHS 10/21/24 17:00 10/22/24 11:32 1 STRIP Insulin Human Regular ACHS SC 10/21/24 17:00 10/22/24 11:32 4 UNITS Dextrose 50 ml UD PRN IV 10/21/24 15:30 Sodium Chloride 1,000 ml @ 60 mls/hr [id number] IV 10/21/24 15:30 10/22/24 09:38 60 MLS/HR Acetaminophen/ Hydrocodone Bitart 1 tab Q4HP PRN PO 10/21/24 15:30 10/22/24 09:43 1 TAB Ondansetron HCl 4 mg Q4HP PRN IV 10/21/24 15:30 Acetaminophen 650 mg Q6HP PRN PO 10/21/24 15:30 Morphine Sulfate 2 mg Q4HPRN PRN IV 10/21/24 15:30 Famotidine 20 mg BID PO 10/21/24 22:00 Hold Pantoprazole Sodium 40 mg DAILY@0700 PO 10/22/24 07:00 10/22/24 05:58 40 MG Atorvastatin Calcium 80 mg HS PO 10/21/24 22:00 10/21/24 22:30 80 MG Patient Own Medication 1 tab DAILY PO 10/22/24 10:00 Hold Vancomycin HCl 250 ml @ 200 mls/hr Q8H IV 10/21/24 18:00 10/22/24 09:36 200 MLS/HR laboratory and microbiology Laboratory Tests 10/22/24 05:54 Test 10/22/24 05:54 Range/Units Serum Glucose 199 H 74-106 mg/dL Microbiology Date/Time Source Procedure Growth Status 10/21/24 09:54 Blood Blood Culture - Preliminary NO GROWTH AFTER 24 HOURS OF INCUBATION. Resulted Problem List/Assessment/Plan Problem List/Assessment/Plan AFEBRILE VSS ABD SOFT DRAIN CATH NON FUNCTION CONSIDER DRAIN PERIUMBILICAL SEROMA/ABSCESS AM Plan discussed with: Patient My Orders My Orders Orders - SOLOMON ROBERTSON MD Procedure Category Date Status Time Clear Liq Diet DIET 10/21/24 Transmitted Dinner Npo (Nothing By DIET 10/23/24 Transmitted Mouth) Diet Breakfast SOLOMON ROBERTSON MD Oct 22, 2024 14:59
[2024-10-22] MEDS: VANCOMYCIN 1GM/250ML KIT 250 ML IV SCH (20:49)
[2024-10-22] MEDS: MORPHINE SULFATE INJ 2 MG/ml SYRG IV PRN (21:53)
[2024-10-23] VITALS (7 sets, daily range): BP systolic 105–133; BP diastolic 67–82; PULSE 76–89; RESP 17–19; TEMP 97.6–98.8; O2SAT 94–96
[2024-10-23] MEDS: SUCCINYLCHOLINE CHLORIDE 20 MG/ML 10ML VIAL IV ONE (09:53)
[2024-10-23] MEDS ORDERED: PROPOFOL 10 MG/ML 20 ML IV ONE (09:57)
[2024-10-23] MEDS ORDERED: MIDAZOLAM HCL 2MG/2ML 2ml VIAL (1mg/ml) ONE (09:57)
[2024-10-23] MEDS ORDERED: fentaNYL CITRATE 100 MCG/2 ML VL ONE (09:57)
[2024-10-23] MEDS ORDERED: ONDANSETRON HCL 4 MG/2 ML VIAL IV PRN (10:00)
[2024-10-23] MEDS ORDERED: HYDROmorphone HCL 2 MG/ML VL/or syr IV PRN (10:00)
[2024-10-23] MEDS ORDERED: hydrALAZINE HCL 20 MG/ML VL IV PRN (10:00)
--- NOTE | 2024-10-23 10:08 | DVHPN2 ---
Reviewed: Care Plan, H&P, Labs, Medications, Previous Orders, Radiology Changes from previous H/P or p: No Changes Skin: Other (Erythema around the periumbilical area) Objective Vitals Vital Signs Date Time Temp Pulse Resp B/P (MAP) Pulse Ox O2 Delivery O2 Flow Rate FiO2 10/23/24 09:00 98.6 76 19 114/78 (90) 96 98.6 10/23/24 08:00 Room Air* 0 21 Intake/Output Intake and Output 10/23/24 07:00 Intake Total 1960 ml Balance 1960 ml Intake Oral 1390 ml IV Total 570 ml # Voids 5 Medications Current Medications Medications Dose Ordered Sig/Oumar Route Start Time Stop Time Status Last Admin Dose Admin Piperacillin Sod/ Tazobactam Sod 100 ml @ 25 mls/hr Q8HR IV 10/21/24 22:00 10/23/24 04:46 25 MLS/HR Vancomycin HCl 0 ml @ 0 mls/hr UD IV 10/21/24 15:30 Diagnostic Test (Pha) 1 strip ACHS 10/21/24 17:00 10/23/24 06:04 1 STRIP Insulin Human Regular ACHS SC 10/21/24 17:00 10/23/24 06:04 2 UNITS Dextrose 50 ml UD PRN IV 10/21/24 15:30 Sodium Chloride 1,000 ml @ 60 mls/hr [id number] IV 10/21/24 15:30 10/22/24 09:38 60 MLS/HR Acetaminophen/ Hydrocodone Bitart 1 tab Q4HP PRN PO 10/21/24 15:30 10/22/24 09:43 1 TAB Ondansetron HCl 4 mg Q4HP PRN IV 10/21/24 15:30 Acetaminophen 650 mg Q6HP PRN PO 10/21/24 15:30 Morphine Sulfate 2 mg Q4HPRN PRN IV 10/21/24 15:30 10/22/24 21:53 2 MG Famotidine 20 mg BID PO 10/21/24 22:00 Hold Pantoprazole Sodium 40 mg DAILY@0700 PO 10/22/24 07:00 10/23/24 06:02 40 MG Atorvastatin Calcium 80 mg HS PO 10/21/24 22:00 10/22/24 21:59 80 MG Patient Own Medication 1 tab DAILY PO 10/22/24 10:00 Hold Vancomycin HCl 250 ml @ 200 mls/hr Q12H IV 10/22/24 20:00 10/22/24 20:49 200 MLS/HR Hydralazine HCl 2.5 mg Q20M PRN IV 10/23/24 10:00 10/23/24 11:01 Hydromorphone HCl 0.5 mg Q10M PRN IV 10/23/24 10:00 10/23/24 10:41 Laboratory Results Laboratory Tests 10/22/24 05:54 Microbiology Microbiology Date/Time Source Procedure Growth Status 10/21/24 09:54 Blood Blood Culture - Preliminary NO GROWTH AFTER 48 HOURS OF INCUBATION. Resulted Labs and/or images reviewed: Labs reviewed by me, Image(s) reviewed by me Assessment/Plan Assessment/Plan Acute Abdominal pain Status post recent ventral hernia repair with mesh by Dr. Lidia Warner, consult by Dr. Lidia Warner appreciated, getting incision and drainage and replacement of the drain by Dr. Lidia Warner today Possible seroma hematoma/cellulitis: Zosyn vancomycin Hypertension Diabetes Hypercholesterolemia History of kidney stones GERD Time Spent 55 minutes Advanced care planning time 20 minutes Blood cultures negative Wound cultures pending Plan discussed with: Patient My Orders Orders - JEANINE GAMA MD Procedure Category Date Status Time Gram Stain GRICEL 10/22/24 In Process 17:31 Routine Bacterial GRICEL 10/22/24 In Process Culture 17:31 Date of Service: Oct 23, 2024 Billing Provider: JEANINE GAMA MD Common Visit Codes: [id number] INP/OBS CARE(HIGH) JEANINE GAMA MD Oct 23, 2024 10:08
[2024-10-23 11:20] LABS: Hematocrit 41.4 % (41.0-53.0); Hemoglobin 13.7 g/dL (13.5-17.5); Mean Corpuscular Hemoglobin 28.6 pg (28.0-32.0); Mean Corpuscular Volume 86.5 fL (80.0-100.0); Nucleated Red Blood Cells % 0.0 %
[2024-10-23] MEDS ORDERED: ONDANSETRON HCL 4 MG/2 ML VIAL ONE (12:01)
[2024-10-23] MEDS ORDERED: METOCLOPRAMIDE HCL 5MG/ml INJ 2ml VIAL ONE (12:01)
[2024-10-23] MEDS: BUPIVACAINE HCL 0.25% P/F 10 ML VIAL ONE (12:02)
--- NOTE | 2024-10-23 12:18 | DVHOP2 ---
Operative Report [id number] PERIUMBILICAL SUBCUT SEROMA/ABSCES S/P PERIUMBILICAL /VENTRAL HERNIA REPAIR DISPLACED DRAIN INCISION AND DRAINAGE ABOVE EBL 5 CC ONE DRAIN NO COMPLICATIONS STABLE TRANSFER TO RECOVERY ROOM SOLOMON ROBERTSON MD Oct 23, 2024 12:18
[2024-10-24 00:57] VITALS: BP 129/89; PULSE 76; RESP 18; TEMP 98.6; O2SAT 94
--- NOTE | 2024-10-24 03:06 | DVHOP ---
DATE OF SURGERY: 10/23/2024 PREOPERATIVE DIAGNOSES: * Periumbilical post incisional seroma/abscess. * Displaced drain. POSTOPERATIVE DIAGNOSES: * Periumbilical post incisional seroma/abscess. * Displaced drain. PROCEDURES: * I and D of abscess. * Replace the drain. SURGEON: Thom Warner MD [employer] SALES [employer]OCIATE: None ANESTHESIA: IV sedation DESCRIPTION OF PROCEDURE: The patient was prepped and draped in the usual sterile fashion in the supine position. The old drain was taken out and the subcutaneous tissues were explored for the abscess/seroma. Some of the abscess was drained out, as well as cultures were sent, and approximately 10 to 15 mL of fluid was drained out and irrigation was performed. Hemostasis was secured. A size 19 Benjy drainage was placed to drain the subcutaneous tissues around the periumbilical location. The wound itself was healed up, and there were no complications from the previous surgery. The reason for this happening was the displaced drain, which was not functioning. Based upon that, the procedure was done, and the dressing was done. The drain was secured with a silver suture, and after that, the dressing was done. The patient tolerated the procedure well with no complications. He was taken back to the recovery room in a stable condition. MD REBECCA Martini/ZEKE TID: [id number] RECEIPT: [id number] cc: Dali John NP
[2024-10-24 05:00] VITALS: BP 125/84; PULSE 76; RESP 16; TEMP 98.1; O2SAT 96
[2024-10-24] MEDS: DOCUSATE SOD 100 MG CAP PO ONE (05:59)
[2024-10-24 07:27] LABS: Hematocrit 40.4 % (41.0-53.0); Hemoglobin 13.4 g/dL (13.5-17.5); Mean Corpuscular Hemoglobin 29.5 pg (28.0-32.0); Mean Corpuscular Volume 89.4 fL (80.0-100.0); Nucleated Red Blood Cells % 0.1 %
[2024-10-24 08:00] VITALS: PULSE 89; RESP 18; O2SAT 94
[2024-10-24] MEDS: DOCUSATE SOD 100 MG CAP PO SCH (08:27)
[2024-10-24 09:00] VITALS: BP 124/78; PULSE 99; RESP 18; TEMP 97.6; O2SAT 95
--- NOTE | 2024-10-24 09:40 | DVHPN2 ---
Progress Note Date Seen: Oct 24, 2024 Medical Necessity Reason Pt with a Central, PICC or Fol: No Objective vital signs Vital Sign Date Time Temp Pulse Resp B/P (MAP) Pulse Ox O2 Delivery O2 Flow Rate FiO2 10/24/24 09:00 97.6 99 18 124/78 (93) 95 97.6 10/23/24 20:00 Room Air* 0 21 Total Intake and Output 10/23/24 10/23/24 10/24/24 15:00 23:00 07:00 Intake Total 350 ml 770 ml 1100 ml Output Total 0 ml Balance 350 ml 770 ml 1100 ml medications Current Medications Medications Dose Ordered Sig/Oumar Route Start Time Stop Time Status Last Admin Dose Admin Piperacillin Sod/ Tazobactam Sod 100 ml @ 25 mls/hr Q8HR IV 10/21/24 22:00 10/24/24 06:01 25 MLS/HR Vancomycin HCl 0 ml @ 0 mls/hr UD IV 10/21/24 15:30 Diagnostic Test (Pha) 1 strip ACHS 10/21/24 17:00 10/24/24 06:02 1 STRIP Insulin Human Regular ACHS SC 10/21/24 17:00 10/23/24 21:42 6 UNITS Dextrose 50 ml UD PRN IV 10/21/24 15:30 Sodium Chloride 1,000 ml @ 60 mls/hr [id number] IV 10/21/24 15:30 10/23/24 18:41 60 MLS/HR Acetaminophen/ Hydrocodone Bitart 1 tab Q4HP PRN PO 10/21/24 15:30 10/23/24 14:50 1 TAB Ondansetron HCl 4 mg Q4HP PRN IV 10/21/24 15:30 Acetaminophen 650 mg Q6HP PRN PO 10/21/24 15:30 Morphine Sulfate 2 mg Q4HPRN PRN IV 10/21/24 15:30 10/24/24 06:21 2 MG Famotidine 20 mg BID PO 10/21/24 22:00 Hold Pantoprazole Sodium 40 mg DAILY@0700 PO 10/22/24 07:00 10/24/24 05:59 40 MG Atorvastatin Calcium 80 mg HS PO 10/21/24 22:00 10/23/24 21:11 80 MG Patient Own Medication 1 tab DAILY PO 10/22/24 10:00 Hold Vancomycin HCl 250 ml @ 200 mls/hr Q12H IV 10/22/24 20:00 10/24/24 08:27 200 MLS/HR Docusate Sodium 100 mg BID PO 10/24/24 10:00 10/24/24 08:27 100 MG laboratory and microbiology Laboratory Tests 10/24/24 06:55 10/22/24 05:54 Test 10/22/24 05:54 Range/Units Serum Glucose 199 H 74-106 mg/dL Microbiology Date/Time Source Procedure Growth Status 10/22/24 00:00 Drainage Gram Stain - Final Resulted 10/22/24 00:00 Drainage Aerobic Culture - Preliminary Resulted 10/21/24 09:54 Blood Blood Culture - Preliminary NO GROWTH AFTER 48 HOURS OF INCUBATION. Resulted Problem List/Assessment/Plan Problem List/Assessment/Plan AFEBRILE VSS ABD SOFT DRAIN CATH IN PLACE 20 CC SEROSANGUINEOUS CELLULITIS LESS NO COMPLICATIONS C/S PENDING GARRY DIET NO RECURRENT HERNIA INSTRUCTIONS RE DIET ACTIVITY F/UP, DRAIN CARE GIVEN FAMILY AND NURSE AT BEDSIDE Plan discussed with: Patient My Orders My Orders Orders - SOLOMON ROBERTSON MD Procedure Category Date Status Time Anaerobic Culture GRICEL 10/23/24 Logged 12:10 Gram Stain GRICEL 10/23/24 Logged 12:10 Routine Bacterial GRICEL 10/23/24 Logged Culture 12:10 Consistent DIET 10/23/24 Transmitted Carb(Ccho)Diabetes Dinner SOLOMON ROBERTSON MD Oct 24, 2024 09:40
--- NOTE | 2024-10-24 09:48 | DVHPN2 ---
Progress Note Date Seen: Oct 24, 2024 Medical Necessity Reason Pt with a Central, PICC or Fol: No Objective vital signs Vital Sign Date Time Temp Pulse Resp B/P (MAP) Pulse Ox O2 Delivery O2 Flow Rate FiO2 10/24/24 09:00 97.6 99 18 124/78 (93) 95 97.6 10/23/24 20:00 Room Air* 0 21 Total Intake and Output 10/23/24 10/23/24 10/24/24 15:00 23:00 07:00 Intake Total 350 ml 770 ml 1100 ml Output Total 0 ml Balance 350 ml 770 ml 1100 ml medications Current Medications Medications Dose Ordered Sig/Oumar Route Start Time Stop Time Status Last Admin Dose Admin Piperacillin Sod/ Tazobactam Sod 100 ml @ 25 mls/hr Q8HR IV 10/21/24 22:00 10/24/24 06:01 25 MLS/HR Vancomycin HCl 0 ml @ 0 mls/hr UD IV 10/21/24 15:30 Diagnostic Test (Pha) 1 strip ACHS 10/21/24 17:00 10/24/24 06:02 1 STRIP Insulin Human Regular ACHS SC 10/21/24 17:00 10/23/24 21:42 6 UNITS Dextrose 50 ml UD PRN IV 10/21/24 15:30 Sodium Chloride 1,000 ml @ 60 mls/hr [id number] IV 10/21/24 15:30 10/23/24 18:41 60 MLS/HR Acetaminophen/ Hydrocodone Bitart 1 tab Q4HP PRN PO 10/21/24 15:30 10/23/24 14:50 1 TAB Ondansetron HCl 4 mg Q4HP PRN IV 10/21/24 15:30 Acetaminophen 650 mg Q6HP PRN PO 10/21/24 15:30 Morphine Sulfate 2 mg Q4HPRN PRN IV 10/21/24 15:30 10/24/24 06:21 2 MG Famotidine 20 mg BID PO 10/21/24 22:00 Hold Pantoprazole Sodium 40 mg DAILY@0700 PO 10/22/24 07:00 10/24/24 05:59 40 MG Atorvastatin Calcium 80 mg HS PO 10/21/24 22:00 10/23/24 21:11 80 MG Patient Own Medication 1 tab DAILY PO 10/22/24 10:00 Hold Vancomycin HCl 250 ml @ 200 mls/hr Q12H IV 10/22/24 20:00 10/24/24 08:27 200 MLS/HR Docusate Sodium 100 mg BID PO 10/24/24 10:00 10/24/24 08:27 100 MG laboratory and microbiology Laboratory Tests 10/24/24 06:55 10/22/24 05:54 Test 10/22/24 05:54 Range/Units Serum Glucose 199 H 74-106 mg/dL Microbiology Date/Time Source Procedure Growth Status 10/22/24 00:00 Drainage Gram Stain - Final Resulted 10/22/24 00:00 Drainage Aerobic Culture - Preliminary Resulted 10/21/24 09:54 Blood Blood Culture - Preliminary NO GROWTH AFTER 48 HOURS OF INCUBATION. Resulted Problem List/Assessment/Plan Problem List/Assessment/Plan AFEBRILE VSS ABD SOFT DRAIN CATH IN PLACE 20 CC SEROSANGUINEOUS CELLULITIS LESS NO COMPLICATIONS C/S PENDING GARRY DIET NO RECURRENT HERNIA CLEARED FOR DISCHARGE INSTRUCTIONS RE DIET ACTIVITY F/UP, DRAIN CARE GIVEN FAMILY AND NURSE AT BEDSIDE Plan discussed with: Patient My Orders My Orders Orders - SOLOMON ROBERTSON MD Procedure Category Date Status Time Anaerobic Culture GRICEL 10/23/24 Logged 12:10 Gram Stain GRICEL 10/23/24 Logged 12:10 Routine Bacterial GRICEL 10/23/24 Logged Culture 12:10 Consistent DIET 10/23/24 Transmitted Carb(Ccho)Diabetes Dinner SOLOMON RBOERTSON MD Oct 24, 2024 09:48
[2024-10-24] MEDS ORDERED: METR-344 PO (11:26)
[2024-10-24] MEDS ORDERED: LEVO500T91 PO (11:26)
[2024-10-24] MEDS ORDERED: HYDR-4902 PO (11:26)
--- NOTE | 2024-10-24 11:29 | DVHPN2 ---
Reviewed: Care Plan, H&P, Labs, Medications, Previous Orders, Radiology Changes from previous H/P or p: No Changes Skin: Other (Erythema around the periumbilical area) Objective Vitals Vital Signs Date Time Temp Pulse Resp B/P (MAP) Pulse Ox O2 Delivery O2 Flow Rate FiO2 10/24/24 09:00 97.6 99 18 124/78 (93) 95 97.6 10/24/24 08:00 Room Air* 0 21 Intake/Output Intake and Output 10/24/24 07:00 Intake Total 2220 ml Output Total 0 ml Balance 2220 ml Intake Oral 1400 ml IV Total 820 ml Output Drainage Total 0 ml # Voids 8 Medications Current Medications Medications Dose Ordered Sig/Oumar Route Start Time Stop Time Status Last Admin Dose Admin Piperacillin Sod/ Tazobactam Sod 100 ml @ 25 mls/hr Q8HR IV 10/21/24 22:00 10/24/24 06:01 25 MLS/HR Vancomycin HCl 0 ml @ 0 mls/hr UD IV 10/21/24 15:30 Diagnostic Test (Pha) 1 strip ACHS 10/21/24 17:00 10/24/24 06:02 1 STRIP Insulin Human Regular ACHS SC 10/21/24 17:00 10/23/24 21:42 6 UNITS Dextrose 50 ml UD PRN IV 10/21/24 15:30 Sodium Chloride 1,000 ml @ 60 mls/hr [id number] IV 10/21/24 15:30 10/24/24 10:10 60 MLS/HR Acetaminophen/ Hydrocodone Bitart 1 tab Q4HP PRN PO 10/21/24 15:30 10/23/24 14:50 1 TAB Ondansetron HCl 4 mg Q4HP PRN IV 10/21/24 15:30 Acetaminophen 650 mg Q6HP PRN PO 10/21/24 15:30 Morphine Sulfate 2 mg Q4HPRN PRN IV 10/21/24 15:30 10/24/24 06:21 2 MG Famotidine 20 mg BID PO 10/21/24 22:00 Hold Pantoprazole Sodium 40 mg DAILY@0700 PO 10/22/24 07:00 10/24/24 05:59 40 MG Atorvastatin Calcium 80 mg HS PO 10/21/24 22:00 10/23/24 21:11 80 MG Patient Own Medication 1 tab DAILY PO 10/22/24 10:00 Hold Vancomycin HCl 250 ml @ 200 mls/hr Q12H IV 10/22/24 20:00 10/24/24 08:27 200 MLS/HR Docusate Sodium 100 mg BID PO 10/24/24 10:00 10/24/24 08:27 100 MG Laboratory Results Laboratory Tests 10/22/24 05:54 10/24/24 06:55 Microbiology Microbiology Date/Time Source Procedure Growth Status 10/22/24 00:00 Drainage Gram Stain - Final Resulted 10/22/24 00:00 Drainage Aerobic Culture - Preliminary Resulted 10/21/24 09:54 Blood Blood Culture - Preliminary NO GROWTH AFTER 72 HOURS OF INCUBATION. Resulted Labs and/or images reviewed: Labs reviewed by me, Image(s) reviewed by me Assessment/Plan Assessment/Plan Acute Abdominal pain Status post recent ventral hernia repair with mesh by Dr. Lidia Warner, consult by Dr. Lidia Warner appreciated, getting incision and drainage and replacement of the drain by Dr. Lidia Warner today Possible seroma hematoma/cellulitis: Zosyn vancomycin, drain output less than 20 mL cleared for discharge by surgeon Hypertension Diabetes Hypercholesterolemia History of kidney stones GERD Time Spent 55 minutes Advanced care planning time 20 minutes Blood cultures negative Wound cultures pending Plan discussed with: Patient Date of Service: Oct 24, 2024 Billing Provider: JEANINE GAMA MD Common Visit Codes: [id number] INP/OBS CARE(HIGH) JEANINE GAMA MD Oct 24, 2024 11:29
--- NOTE | 2024-10-24 11:33 | DVHDS2 ---
Discharge Summary Date of Admission Oct 21, 2024 at 15:30 Date of Discharge: Oct 24, 2024 Admitting Diagnosis Abdominal pain Wounds: Ventral hernia repair Labs/Diagnostic Data: Laboratory Results Test 10/24/24 06:55 10/24/24 05:44 10/22/24 05:54 10/21/24 09:54 White Blood Count 9.5 10^3/uL (4.4-10.8) Red Blood Count 4.52 10^6/uL (4.5-5.90) Hemoglobin 13.4 g/dL (13.5-17.5) Hematocrit 40.4 % (41.0-53.0) Mean Corpuscular Volume 89.4 fL (80.0-100.0) Mean Corpuscular Hemoglobin 29.5 pg (28.0-32.0) Mean Corpuscular Hemoglobin Concent 33.0 g/dL (32.0-36.0) Red Cell Distribution Width 15.0 % (11.8-14.3) Platelet Count 353 10^3/uL (140-450) Mean Platelet Volume 7.8 fL (6.9-10.8) Neutrophils (%) (Auto) 58.0 % (37.0-80.0) Lymphocytes (%) (Auto) 28.0 % (10.0-50.0) Monocytes (%) (Auto) 12.4 % (0.0-12.0) Eosinophils (%) (Auto) 1.0 % (0.0-7.0) Basophils (%) (Auto) 0.6 % (0.0-2.0) Neutrophils # (Auto) 5.5 10 ^3/uL (1.6-8.6) Lymphocytes # (Auto) 2.7 10 ^3/uL (0.4-5.4) Monocytes # (Auto) 1.2 10 ^3/uL (0-1.3) Eosinophils # (Auto) 0.1 10 ^3/uL (0-0.8) Basophils # (Auto) 0.1 10 ^3/uL (0-0.2) Nucleated Red Blood Cells 0.1 % Creatinine 0.94 mg/dL (0.700-1.30) Glomerular Filtration Rate Calc 101 mL/min (>90) Vancomycin Level Trough 12.3 ug/mL (5-10) POC Glucose 119 mg/dl (70-106) Sodium Level 137 mmol/L (136-145) Potassium Level 4.5 mmol/L (3.5-5.1) Chloride Level 104 mmol/L (98-107) Carbon Dioxide Level 24 mmol/L (20-31) Anion Gap 9 (5-15) Blood Urea Nitrogen 13 mg/dL (9-23) BUN/Creatinine Ratio 13.1 (10.0-20.0) Serum Glucose 199 mg/dL (74-106) Calcium Level 9.4 mg/dL (8.7-10.4) Total Bilirubin 0.6 mg/dL (0.2-1.0) Aspartate Amino Transferase (AST) 16 U/L (13-40) Alanine Aminotransferase (ALT) 15 U/L (7-40) Alkaline Phosphatase 75 U/L (46-116) Total Protein 7.7 g/dL (5.7-8.2) Albumin 4.3 g/dL (3.2-4.8) Hemoglobin A1c 6.6 % A1C (<5.7) Test 10/21/24 09:41 Lactic Acid Level 1.2 mmol/L (0.4-2.0) Other Laboratory Tests 10/24/24 06:55 10/22/24 05:54 Brief Hx & Hospital Course: 48-year-old male underwent ventral hernia repair by Dr. Warner with the mesh. Subsequently came back complaining of abdominal pain. Drain was not draining and the drain was adjusted by Dr. Lidia Warner possible seroma hematoma resolved cellulitis treated with the Zosyn and vancomycin history of diabetes hypertension hypercholesterolemia and kidney stones . At the time of discharge patient is afebrile with stable vital signs cleared for discharge by surgeon. Discharged home on Levaquin Flagyl and [place]. He will follow up with surgeon in 10 days Consults/Reason for consult Surgeon Dr. Lidia Warner Operations or Procedures Ventral hernia repair Condition at Discharge: Fair Final Diagnosis/Problems List Acute Abdominal pain Status post recent ventral hernia repair with mesh by Dr. Lidia Warner, consult by Dr. Lidia Warner appreciated, getting incision and drainage and replacement of the drain by Dr. Lidia Warner today Possible seroma hematoma/cellulitis: Zosyn vancomycin, drain output less than 20 mL cleared for discharge by surgeon Hypertension Diabetes Hypercholesterolemia History of kidney stones GERD Discharge Disposition: Home Discharge Instruct/Medications Diet: Regular Activity: Light activity Follow Up/Referral: Resume all your previous home medications Use new medications as prescribed Follow up with surgeon Dr. Lidia Warner in 10 days Medications: Levaquin Flagyl [place] Transmitted to pharmacy Scheduled Amoxicillin & Pot Clavulanate (Augmentin), 1 TAB PO BID Atorvastatin Calcium (Lipitor), 1 TAB PO DAILY, (Reported) Famotidine (Famotidine), 20 MG PO BID, (Reported) Levofloxacin Hemihydrate (Levaquin 500 Mg), 1 TAB PO DAILY Losartan Potassium & Hydrochlo (Hyzaar), 1 TAB PO DAILY Metronidazole (Flagyl), 1 TAB PO TID Pantoprazole Sodium Sesquihydr (Protonix), 40 MG PO DAILY Semaglutide (Ozempic), 2 MG SC QWEEKLY, (Reported) Scheduled PRN Clonidine Hydrochloride (Clonidine Hcl), 1 TAB PO BIDP PRN Clonidine Hydrochloride (Clonidine Hcl), 1 TAB PO BIDP PRN Hydrocodone-Acetaminophen (Hydrocodone Bitartrate/AC 5-325 mg), 1 TAB PO Q6HP PRN Hydrocodone-Acetaminophen (Hydrocodone Bitartrate/AC 5-325 mg), 1 TAB PO QID PRN 35 (Time taken for discharge summary 35 minutes) Discharge Statement: "Patient was advised to return to the ER or call 911 if any headaches, dizziness, shortness of breath, chest pain, abdominal pain, bleeding, fevers, or worsening of medical condition. Patient was counseled about treatment plan, medications, possible side effects, patientverbalized understanding. All questions were answered to the best of my ability. This discharge took greater then 30 minutes in planning, reviewing documentation, counseling the patient, and discussing with other team members." ASSESSMENT ASSESSMENT Hospital Course Improved Assessment Acute Abdominal pain Status post recent ventral hernia repair with mesh by Dr. Lidia Warner, consult by Dr. Lidia Warner appreciated, getting incision and drainage and replacement of the drain by Dr. Lidia Warner today Possible seroma hematoma/cellulitis: Zosyn vancomycin, drain output less than 20 mL cleared for discharge by surgeon Hypertension Diabetes Hypercholesterolemia History of kidney stones GERD Date of Service: Oct 24, 2024 Billing Provider: JEANINE GAMA MD Common Visit Codes: [id number] DISCH DAY >30min JEANINE GAMA MD Oct 24, 2024 11:33
[2024-10-24] MEDS: LACTULOSE 20Gm/30ML SOLN PO ONE (12:55)
[2024-10-24 13:00] VITALS: BP 158/92; PULSE 74; RESP 18; TEMP 98.4; O2SAT 94
[2024-10-25] MEDS ORDERED: HYDROmorphone HCL 2 MG/ML VL/or syr IV PRN (21:30)
[2024-10-26] MEDS ORDERED: CEPHALEXIN 250 MG/5ml ORAL Susp 200ML BTL GT SCH
== END 2024-10-24 15:15 | disposition home or self-care (01) | DRG 919 ==
LOC: ER 09:10 → OVERFLOW 15:30 → WEST WING 18:34
PROVIDERS: ADMIT Family Medicine; ATTEND Family Medicine
PROC: 0W9G3ZZ Drainage of Peritoneal Cavity, Percutaneous Approach (ICD-10-PCS; principal; 2024-10-23 11:50)
DX: L76.34 Postprocedural seroma of skin and subcutaneous tissue following other procedure (principal); K65.1 Peritoneal abscess; L02.216 Cutaneous abscess of umbilicus; Z68.43 Body mass index [BMI] 50.0-59.9, adult; L03.316 Cellulitis of umbilicus; L76.32 Postprocedural hematoma of skin and subcutaneous tissue following other procedure; K42.9 Umbilical hernia without obstruction or gangrene; I10 Essential (primary) hypertension; K21.9 Gastro-esophageal reflux disease without esophagitis; E11.65 Type 2 diabetes mellitus with hyperglycemia; E66.01 Morbid (severe) obesity due to excess calories; K76.0 Fatty (change of) liver, not elsewhere classified; E78.00 Pure hypercholesterolemia, unspecified; Y83.8 Other surgical procedures as the cause of abnormal reaction of the patient, or of later complication, without mention of misadventure at the time of the procedure; Y82.8 Other medical devices associated with adverse incidents; Z91.013 Allergy to seafood; Z87.442 Personal history of urinary calculi
CPT/HCPCS: 36415; 74177; 80053; 80202; 82565; 82962; 83036; 83605; 85025; 87040; 87070; 87205; 93005; 96361; 96365; 96366; 96375; 99291; G0378; J0330; J1100; J1815; J2250; J2405; J2543; J2704; J3490

== ENCOUNTER 2024-10-25 11:04 | Inpatient (IN) | payer OTHER ==
[~2024-10-25] VITALS: Ht 182.9 cm; Wt 167.3 kg
[~2024-10-25 11:04] MED LIST changes: +LEVO500T91 PO; +METR-344 PO
--- NOTE | 2024-10-25 11:45 | ED.PDOC ---
History of Present Illness HPI Comments This is a 48 year-old male with history of recent umbilical hernia repair on 10/05/2024 who presents to the ED with a chief complaint of wound check. Patient reports discharge with discomfort to his postoperative site following a recent admission for an intra-abdominal wound site fluid collection and obstruction of his MICHAEL drain. Dr. Warner replace the drain, and the patient was discharged on 10/24/24 on Levaquin, Flagyl and [place]. Patient states this morning he noted that the MICHAEL appears to be no longer collecting fluid, with serosanguineous discharge in the catheter that is not moving, and approximately 10 mL of drainage within collection bulb, which has not changed since last night. Patient states he contacted Dr. Warner, with complaints of discharge and a lack of drainage at the site, and was told to return to the ED for re-evaluation. Patient has no further complaints at this time and otherwise denies symptoms of N/V, fever, chills, dysuria, or hematuria. Chief Complaint: Wound Check Time Seen by MD: 11:16 Primary Care Provider: Negin Wilde Notes: Nurses Notes, Medications, Allergies Allergies: Uncoded Allergies: SEAFOOD (Allergy, Unknown, 05/13/23) Home Meds Active Scripts Hydrocodone-Acetaminophen (Hydrocodone Bitartrate/AC 5-325 mg) 1 Tab Tab, 1 TAB PO QID PRN, #30 TAB Prov:JEANINE GAMA MD 10/24/24 Metronidazole (Flagyl) 500 Mg Tab, 1 TAB PO TID, #30 TAB Prov:JEANINE GAMA MD 10/24/24 Levofloxacin Hemihydrate (LEVAQUIN 500 MG) 500 Mg Tab, 1 TAB PO DAILY, #10 TAB Prov:JEANINE GAMA MD 10/24/24 Amoxicillin & Pot Clavulanate (Augmentin) 500 Mg Tab, 1 TAB PO BID for 5 Days, #10 TAB Prov:JOLENE STEVENS [employer] SYSTEMS ENGINEER 10/09/24 Hydrocodone-Acetaminophen (Hydrocodone Bitartrate/AC 5-325 mg) 1 Tab Tab, 1 TAB PO Q6HP PRN for 5 Days, #15 TAB Prov:JOLENE STEVENS [employer] SYSTEMS ENGINEER 10/09/24 Pantoprazole Sodium Sesquihydr (Protonix) 40 Mg Tab, 40 MG PO DAILY for 30 Days, #30 TAB Prov:SALMIKE,FERNÁNDEZ [employer] SYSTEMS ENGINEER 10/09/24 Clonidine Hydrochloride (Clonidine Hcl) 0.2 Mg Tab, 1 TAB PO BIDP PRN for 15 Days, #30 TAB 0 Refills Prov:BRIGIDA STEVENSPH SECURITY SYSTEMS ENGINEER 10/09/24 Losartan Potassium & Hydrochlo (Hyzaar) 1 Tab Tab, 1 TAB PO DAILY for 30 Days, #30 TAB 1 Refill Prov:JOLENE STEVENS [employer] SYSTEMS ENGINEER 10/09/24 Clonidine Hydrochloride (Clonidine Hcl) 0.2 Mg Tab, 1 TAB PO BIDP PRN, #20 TAB 0 Refills To be utilized if systolic blood pressures above 160 or diastolic pressures above 90 Prov:YURI RON PAC 05/14/23 Reported Medications Semaglutide (Ozempic) 8 Mg/3 Ml Inj, 2 MG SC QWEEKLY 10/04/24 Atorvastatin Calcium (Lipitor) 80 Mg Tab, 1 TAB PO DAILY, #30 TAB 5 Refills 10/04/24 Famotidine (Famotidine) 20 Mg Tab, 20 MG PO BID for 30 Days, MG 10/04/24 Information Source: Patient Mode of Arrival: Ambulatory Severity: Moderate Timing: Hours Duration: Since onset Prehospital treatment: None Associated signs and symptoms discharge and swelling at postoperative site. Past Medical History PAST MEDICAL HISTORY: DM, GERD, High Lipids, HTN, Kidney Stones Surgical History (Other): Umbilical hernia repair, recent MICHAEL drain replacement Family History Family History: Unknown Social History Smoker: Non-Smoker, Quit Greater Than 1 Year Alcohol: Occasionally Drugs: Denies Drug Use Lives In: Home Constitutional: denies: chills, diaphoresis, fatigue, fever, malaise, sweats, weakness, others EENTM: denies: blurred vision, double vision, ear bleeding, ear discharge, ear drainage, ear pain, ear ringing, eye pain, eye redness, hearing loss, mouth pain, mouth swelling, nasal discharge, nose bleeding, nose congestion, nose pain, photophobia, tearing, throat pain, throat swelling, voice changes, others Respiratory: denies: cough, hemoptysis, orthopnea, SOB at rest, shortness of breath, SOB with excertion, stridor, wheezing, others Cardiovascular: denies: chest pain, dizzy spells, diaphoresis, Dyspnea on exertion, edema, irregular heart beat, left arm pain, lightheadedness, palpitations, PND, syncope, others Gastrointestinal: reports: abdominal pain; denies: abdomen distended, blood streaked bowels, constipated, diarrhea, dysphagia, difficulty swallowing, hematemesis, melena, nausea, poor appetite, poor fluid intake, rectal bleeding, rectal pain, vomiting, others Genitourinary: denies: burning, dysuria, flank pain, frequency, hematuria, incontinence, penile discharge, penile sore, pain, testicle pain, testicle swelling, urgency, others Neurological: denies: dizziness, fainting, headache, left sided numbness, left sided weakness, numbness, paresthesia, pre-existing deficit, right sided numbness, right sided weakness, seizure, speech problems, tingling, tremors, weakness, others Musculoskeletal: denies: back pain, gout, joint pain, joint swelling, muscle pain, muscle stiffness, neck pain, others Integumetry: reports: others (drainage ); denies: bruises, change in color, change in hair/nails, dryness, laceration, lesions, lumps, rash, wounds Allergic/Immunocompromised: denies: Difficulty Healing, Frequent Infections, Hives, Itching, others Hematologic/Lymphatic: denies: anemia, blood clots, easy bleeding, easy bruising, swollen glands, others Endocrine: denies: excessive hunger, excessive sweating, excessive thirst, excessive urination, flushing, intolerance to cold, intolerance to heat, unexplained weight gain, unexplained weight loss, others Psychiatric: denies: anxiety, bipolar disorder, depression, hopeless, panic disorder, schizophrenia, sleepless, suicidal, others All Other Systems: Reviewed and Negative Physical Exam General Appearance: No Apparent Distress, Obese HEENT: Other (Pupils and face symmetric. Moist mucous membranes.) Neck: Full Range of Motion, Normal Inspection Respiratory: Lungs Clear, No Accessory Muscle Use, No Respiratory Distress, Normal Breath Sounds Cardiovascular: No Edema, No JVD, Regular Rate/Rhythm Breast Exam: Deferred Gastrointestinal: Soft, Other (Umbilical/mid abdominal wound site with surrounding erythema and yellow discharge on dressing. Right lower quadrant MICHAEL drain with serosanguineous fluid within the catheter and collection bulb.) Genitalia: Deferred Pelvic: Deferred Rectal: Deferred Extremities: Normal inspection, Normal range of motion, Non-tender, No pedal edema Neurologic: Alert (Oriented x4), Normal Affect, Normal Mood, Other (Ambulatory) Cerebellar Function: NOT DONE Reflexes: NOT DONE Skin: Dry, Normal Color, Warm Lymphatic: NOT DONE Was a procedure done? Was a procedure done?: No Differential Dx Considerations may include: Surgical Wound Site infection, abscess, fluid collection/seroma, drain malfun ction/obstruction, sepsis, among others X-Ray, Labs, Meds, VS Vital Signs Date Time Temp Pulse Resp B/P (MAP) Pulse Ox O2 Delivery O2 Flow Rate FiO2 10/25/24 11:46 97.5 106 18 169/103 (125) 97 97.5 10/25/24 11:46 106 18 97 Room Air 10/25/24 11:08 98.8 107 24 138/95 97 98.8 Lab Test 10/25/24 11:50 10/25/24 11:42 Range/Units White Blood Count 11.5 H 4.4-10.8 10^3/uL Red Blood Count 4.79 4.5-5.90 10^6/uL Hemoglobin 14.0 13.5-17.5 g/dL Hematocrit 40.7 L 41.0-53.0 % Mean Corpuscular Volume 84.9 # 80.0-100.0 fL Mean Corpuscular Hemoglobin 29.2 28.0-32.0 pg Mean Corpuscular Hemoglobin Concent 34.4 32.0-36.0 g/dL Red Cell Distribution Width 14.0 11.8-14.3 % Platelet Count 434 140-450 10^3/uL Mean Platelet Volume 8.1 6.9-10.8 fL Neutrophils (%) (Auto) 72.5 37.0-80.0 % Lymphocytes (%) (Auto) 17.6 10.0-50.0 % Monocytes (%) (Auto) 7.7 0.0-12.0 % Eosinophils (%) (Auto) 1.5 0.0-7.0 % Basophils (%) (Auto) 0.7 0.0-2.0 % Neutrophils # (Auto) 8.4 1.6-8.6 10 ^3/uL Lymphocytes # (Auto) 2.0 0.4-5.4 10 ^3/uL Monocytes # (Auto) 0.9 0-1.3 10 ^3/uL Eosinophils # (Auto) 0.2 0-0.8 10 ^3/uL Basophils # (Auto) 0.1 0-0.2 10 ^3/uL Nucleated Red Blood Cells 0.1 % Sodium Level 139 136-145 mmol/L Potassium Level 3.8 3.5-5.1 mmol/L Chloride Level 102 98-107 mmol/L Carbon Dioxide Level 24 20-31 mmol/L Anion Gap 13 5-15 Blood Urea Nitrogen 15 9-23 mg/dL Creatinine 1.16 0.700-1.30 mg/dL Glomerular Filtration Rate Calc 78 >90 mL/min BUN/Creatinine Ratio 12.9 10.0-20.0 Serum Glucose 175 H 74-106 mg/dL Lactic Acid Level 1.7 0.4-2.0 mmol/L Calcium Level 9.4 8.7-10.4 mg/dL Urine Color Yellow Yellow Urine Clarity Clear Clear Urine pH 6.0 5.0-9.0 Urine Specific [place] 1.024 1.001-1.035 Urine Protein Negative Negative Urine Ketones Negative Negative Urine Blood Negative Negative /uL Urine Nitrite Negative Negative Urine Bilirubin Negative Negative Urine Urobilinogen Normal Negative mg/dL Urine Leukocyte Esterase Negative Negative /uL Urine RBC 2 0 - 3 /hpf Urine Microscopic WBC 1 0-3 /HPF Urine Squamous Epithelial Cells Few <5 /hpf Urine Bacteria None seen None Seen /hpf Urine Glucose Normal Normal mg/dL Current Medications Medications (Trade) Dose Ordered Sig/Oumar Route Start Time Stop Time Status Last Admin Acetaminophen/ Hydrocodone Bitart ([place] 5/325MG Tab) 2 tab ONCE ONCE PO 10/25/24 11:45 10/25/24 11:46 DC 10/25/24 11:56 PROCEDURE(s): ABPL - CT AB PEL WO CON-NO ORAL OR IV REASON: MICHAEL not draining, umbilical wound d/c, redness/pain ORDER NUMBER(s): [id number], ACCESSION NUMBER(s): [id number] Indication: MICHAEL not draining, umbilical wound d/c, redness/pain Technique: CT axial images of the abdomen and pelvis are obtained without contrast. Coronal and sagittal reformats were obtained. Radiation Dose Information: CTDI volume is 25.82 mGy. Dose-length product is 3.92 mGy*cm Comparison: 10/21/2024 FINDINGS: There is limited interpretation of the abdomen and pelvis without administration of intravenous contrast. Lung bases demonstrate no pleural effusion. Adrenal glands, spleen, pancreas unremarkable in shape. Hepatic steatosis. Gallbladder contracted. Kidneys demonstrate no hydronephrosis / nephrolithiasis. Stomach partially distended. Small bowel loops normal in caliber. Moderate volume stool in the colon. Normal appendix. Abdominal aortic atherosclerotic disease. Bladder partially distended. No free pelvic fluid. Bilateral fat containing inguinal hernias. There is a paraumbilical region complex collection containing fluid and air measuring 11 x 6.3 cm extending into the anterior peritoneal cavity. There is extensive surrounding soft tissue stranding. The collection extends to the skin surface. Associated skin thickening. There is a right abdominal drainage catheter that is just lateral to this complex collection. IMPRESSION: Limited evaluation without contrast. There is a paraumbilical region complex collection containing fluid and air measuring 11 x 6.3 cm extending into the anterior peritoneal cavity, increased in size since previous examination. There is extensive surrounding soft tissue stranding. The collection extends to the skin surface. Associated skin thicke stacey. There is a right abdominal drainage catheter that is just lateral to this complex collection. Differential considerations include abscess and other complex collections. Recommend surgical consultation for further management. Hepatic steatosis. Other findings as described. X-Ray, Labs, Meds, VS Comment 48-year-old male with a history of diabetes, GERD, dyslipidemia, kidney stones and recent hernia repair with MICHAEL drain malfunction and reinsertion complaining of wound site pain, yellow discharge and possible re-obstruction of the MICHAEL drain Vitals remarkable for heart rate 107, respiratory rate 24, BP 138/95 Exam remarkable for umbilical wound site erythema, tenderness and yellow discharge. Serosanguineous fluid within the MICHAEL drain catheter and collection ball. Rhythm strip independently interpreted by me: Sinus tach, rate 107, no ectopy. CT abdomen and pelvis IMPRESSION: Limited evaluation without contrast. There is a paraumbilical region complex collection containing fluid and air measuring 11 x 6.3 cm extending into the anterior peritoneal cavity, increased in size since previous examination. There is extensive surrounding soft tissue stranding. The collection extends to the skin surface. Associated skin thickening. There is a right abdominal drainage catheter that is just lateral to this complex collection. Differential considerations include abscess and other complex collections. Recommend surgical consultation for further management. Hepatic steatosis. Other findings as described. CBC, basic metabolic panel, lactate, UA reviewed and remarkable for WBC 11.5 Patient treated with the following in the ED: [place] 5/325 mg 2 tabs p.o., Zosyn 4.5 g IV, vancomycin 1 g IV On re-evaluation, pain has improved. Vitals were stable. Discussed with Dr. Castro Warner, who will see the patient and requested the patient be re-admitted for possible percutaneous drainage by IR tomorrow. IR is unavailable today. Images Reviewed?: Images reviewed and evaluated by me Time of 1ST Reevaluation: 11:44 Reevaluation 1ST: Unchanged Patient Education/Counseling: Diagnosis, Treatment, Need For Follow Up Family Education/Counseling: No Family Present Medical Screening: No EMC Exist At This Time SEPSIS Sepsis Screen Date sepsis recognized/suspect: Oct 25, 2024 Time Sepsis recognized/suspect: 1108 Recent Procedure: Yes On Antibiotic Therapy: Yes Respiratory Rate >20: Yes Heart Rate >90: Yes Temp<36 C (96.8 F) or >38.3 C: No SBP <90 or MAP <65 mmHG: No New Acute Mental Status Change: No Is the patient on CPAP, BIPAP,: No SEPSIS EXCLUSION NOTE: Sepsis Exclusion Note: Patient presents with SIRS criteria, but the SIRS response is attributed to [p ain ], not sepsis. Sepsis bundle is not initiated at this time, due to this reason. Further management will focus on the treatment of the above condition (s). Physician Orders Blood Culture (10/25/24 11:33) Wound Culture W/ Gs (10/25/24 11:33) Ct Ab Pel Wo Con-No Oral Or Iv (10/25/24 11:33) Piperacillin-Tazo 4.5gm (Zosyn 4.5gm/100 (10/25/24 13:30) Vancomycin 1gm/250ml Kit (10/25/24 13:30) Vital Signs Date Time Temp Pulse Resp B/P (MAP) Pulse Ox O2 Delivery O2 Flow Rate FiO2 10/25/24 11:46 97.5 106 18 169/103 (125) 97 97.5 10/25/24 11:46 106 18 97 Room Air 10/25/24 11:08 98.8 107 24 138/95 97 98.8 Laboratory Tests Test 10/25/24 11:50 Lactic Acid Level 1.7 mmol/L (0.4-2.0) White Blood Count 11.5 10^3/uL (4.4-10.8) H Medications Medications Dose Ordered Sig/Oumar Route Start Time Stop Time Status Last Admin Dose Admin Acetaminophen/ Hydrocodone Bitart 2 tab ONCE ONCE PO 10/25/24 11:45 10/25/24 11:46 DC 10/25/24 11:56 Departure 1 Departure Time of Disposition: 12:00 Impression: Primary Impression: Intraabdominal fluid collection Additional Impression: Wound, surgical, infected Disposition: ADMITTED INPATIENT Admit to: Med Surg Condition: Guarded Critical Care Note Critical Care Time?: No Stability Stability form required: No Heart Score Heart Score: Heart Score Response (Comments) Value History N/A 0 EKG N/A 0 Age N/A 0 Risk Factors N/A 0 Troponin N/A 0 Total 0 I personally scribed for WIL MARTÍNEZ MD ([email or web address]) on 10/25/24 at 11:45. Electronically submitted by Joycelyn Payan ([facility]). WIL MARTÍNEZ MD Oct 25, 2024 11:45
[2024-10-25] MEDS: HYDROcodone-ACET 5/325MG TAB PO ONE (11:56)
[2024-10-25 12:35] LABS: Hematocrit 40.7 % (41.0-53.0); Hemoglobin 14.0 g/dL (13.5-17.5); Mean Corpuscular Hemoglobin 29.2 pg (28.0-32.0); Mean Corpuscular Volume 84.9 fL (80.0-100.0); Nucleated Red Blood Cells % 0.1 %
[2024-10-25 12:36] LABS: Chloride 102 mmol/L (98-107); Potassium 3.8 mmol/L (3.5-5.1); Sodium 139 mmol/L (136-145)
[2024-10-25 12:37] LABS: Anion Gap 13 (5-15); Calcium 9.4 mg/dL (8.7-10.4); Carbon Dioxide 24 mmol/L (20-31)
[2024-10-25 12:42] LABS: BUN/Creatinine Ratio 12.9 (10.0-20.0); Blood Urea Nitrogen 15 mg/dL (9-23)
[2024-10-25 12:46] LABS: Glucose 175 mg/dL (74-106)
[2024-10-25 12:59] LABS: Urine Protein, UAD Negative (Negative)
--- NOTE | 2024-10-25 13:06 | DVH ---
Indication: MICHAEL not draining, umbilical wound d/c, redness/pain Technique: CT axial images of the abdomen and pelvis are obtained without contrast. Coronal and sagit iraj reformats were obtained. Radiation Dose Information: CTDI volume is 25.82 mGy. Dose-length product is 3.92 mGy*cm Comparison: 10/21/2024 FINDINGS: There is limited interpretation of the abdomen and pelvis without administration of intravenous contr ast. Lung bases demonstrate no pleural effusion. Adrenal glands, spleen, pancreas unremarkable in shape. Hepatic steatosis. Gallbladder contracted. Kidneys demonstrate no hydronephrosis / nephrolithiasis. Stomach partially distended. Small bowel loops normal in caliber. Moderate volume stool in the colon. Normal appendix. Abdominal aortic atherosclerotic disease. Bladder partially distended. No free pelvic fluid. Bilater al fat containing inguinal hernias. There is a paraumbilical region complex collection containing fluid and air measuring 11 x 6.3 cm ext ending into the anterior peritoneal cavity. There is extensive surrounding soft tissue stranding. T he collection extends to the skin surface. Associated skin thickening. There is a right abdominal d rainage catheter that is just lateral to this complex collection. IMPRESSION: Limited evaluation without contrast. There is a paraumbilical region complex collection containing fluid and air measuring 11 x 6.3 cm ext ending into the anterior peritoneal cavity, increased in size since previous examination. There is e xtensive surrounding soft tissue stranding. The collection extends to the skin surface. Associated skin thickening. There is a right abdominal drainage catheter that is just lateral to this complex c ollection. Differential considerations include abscess and other complex collections. Recommend surg ical consultation for further management. Hepatic steatosis. Other findings as described.
[2024-10-25] MEDS: PIPERACILLIN-TAZO 4.5GM 100 ML IV ONE (13:49)
[2024-10-25] MEDS: VANCOMYCIN 1GM/250ML KIT 250 ML IV ONE (15:49)
--- NOTE | 2024-10-25 16:15 | DVHINCON2 ---
Date of service: Oct 25, 2024 Family History: Diabetes mellitus G8 FATHER Hypertension G8 MOTHER Allergies: Uncoded Allergies: SEAFOOD (Allergy, Unknown, 05/13/23) Home Meds Active Scripts Hydrocodone-Acetaminophen (Hydrocodone Bitartrate/AC 5-325 mg) 1 Tab Tab, 1 TAB PO QID PRN, #30 TAB Prov:JEANINE GAMA MD 10/24/24 Metronidazole (Flagyl) 500 Mg Tab, 1 TAB PO TID, #30 TAB Prov:JEANINE GAMA MD 10/24/24 Levofloxacin Hemihydrate (LEVAQUIN 500 MG) 500 Mg Tab, 1 TAB PO DAILY, #10 TAB Prov:JEANINE GAMA MD 10/24/24 Amoxicillin & Pot Clavulanate (Augmentin) 500 Mg Tab, 1 TAB PO BID for 5 Days, #10 TAB Prov:JOLENE STEVENS NP 10/09/24 Hydrocodone-Acetaminophen (Hydrocodone Bitartrate/AC 5-325 mg) 1 Tab Tab, 1 TAB PO Q6HP PRN for 5 Days, #15 TAB Prov:JOLENE STEVENS NP 10/09/24 Pantoprazole Sodium Sesquihydr (Protonix) 40 Mg Tab, 40 MG PO DAILY for 30 Days, #30 TAB Prov:JOLENE STEVENS NP 10/09/24 Clonidine Hydrochloride (Clonidine Hcl) 0.2 Mg Tab, 1 TAB PO BIDP PRN for 15 Days, #30 TAB 0 Refills Prov:JOLENE STEVENS NP 10/09/24 Losartan Potassium & Hydrochlo (Hyzaar) 1 Tab Tab, 1 TAB PO DAILY for 30 Days, #30 TAB 1 Refill Prov:JOLENE STEVENS NP 10/09/24 Clonidine Hydrochloride (Clonidine Hcl) 0.2 Mg Tab, 1 TAB PO BIDP PRN, #20 TAB 0 Refills To be utilized if systolic blood pressures above 160 or diastolic pressures above 90 Prov:YURI RON PAC 05/14/23 Reported Medications Semaglutide (Ozempic) 8 Mg/3 Ml Inj, 2 MG SC QWEEKLY 10/04/24 Atorvastatin Calcium (Lipitor) 80 Mg Tab, 1 TAB PO DAILY, #30 TAB 5 Refills 10/04/24 Famotidine (Famotidine) 20 Mg Tab, 20 MG PO BID for 30 Days, MG 10/04/24 Vital Signs Vital Signs Date Time Temp Pulse Resp B/P (MAP) Pulse Ox O2 Delivery O2 Flow Rate FiO2 10/25/24 11:46 97.5 106 18 169/103 (125) 97 97.5 10/25/24 11:46 Room Air Labs/Diagnostic Data Labs Test 10/25/24 11:50 10/25/24 11:42 Range/Units White Blood Count 11.5 H 4.4-10.8 10^3/uL Red Blood Count 4.79 4.5-5.90 10^6/uL Hemoglobin 14.0 13.5-17.5 g/dL Hematocrit 40.7 L 41.0-53.0 % Mean Corpuscular Volume 84.9 # 80.0-100.0 fL Mean Corpuscular Hemoglobin 29.2 28.0-32.0 pg Mean Corpuscular Hemoglobin Concent 34.4 32.0-36.0 g/dL Red Cell Distribution Width 14.0 11.8-14.3 % Platelet Count 434 140-450 10^3/uL Mean Platelet Volume 8.1 6.9-10.8 fL Neutrophils (%) (Auto) 72.5 37.0-80.0 % Lymphocytes (%) (Auto) 17.6 10.0-50.0 % Monocytes (%) (Auto) 7.7 0.0-12.0 % Eosinophils (%) (Auto) 1.5 0.0-7.0 % Basophils (%) (Auto) 0.7 0.0-2.0 % Neutrophils # (Auto) 8.4 1.6-8.6 10 ^3/uL Lymphocytes # (Auto) 2.0 0.4-5.4 10 ^3/uL Monocytes # (Auto) 0.9 0-1.3 10 ^3/uL Eosinophils # (Auto) 0.2 0-0.8 10 ^3/uL Basophils # (Auto) 0.1 0-0.2 10 ^3/uL Nucleated Red Blood Cells 0.1 % Sodium Level 139 136-145 mmol/L Potassium Level 3.8 3.5-5.1 mmol/L Chloride Level 102 98-107 mmol/L Carbon Dioxide Level 24 20-31 mmol/L Anion Gap 13 5-15 Blood Urea Nitrogen 15 9-23 mg/dL Creatinine 1.16 0.700-1.30 mg/dL Glomerular Filtration Rate Calc 78 >90 mL/min BUN/Creatinine Ratio 12.9 10.0-20.0 Serum Glucose 175 H 74-106 mg/dL Lactic Acid Level 1.7 0.4-2.0 mmol/L Calcium Level 9.4 8.7-10.4 mg/dL Urine Color Yellow Yellow Urine Clarity Clear Clear Urine pH 6.0 5.0-9.0 Urine Specific [place] 1.024 1.001-1.035 Urine Protein Negative Negative Urine Ketones Negative Negative Urine Blood Negative Negative /uL Urine Nitrite Negative Negative Urine Bilirubin Negative Negative Urine Urobilinogen Normal Negative mg/dL Urine Leukocyte Esterase Negative Negative /uL Urine RBC 2 0 - 3 /hpf Urine Microscopic WBC 1 0-3 /HPF Urine Squamous Epithelial Cells Few <5 /hpf Urine Bacteria None seen None Seen /hpf Urine Glucose Normal Normal mg/dL Assessment [id number] c/o UMBILICAL SWELLING S/P VENTRAL HERNIA REPAIR S/P DRAINAGE OF SEROMA/ABSCESS PERIUMBILICAL LOCATION RECENTLY AFEBRILE VSS NOW DEVELOPING NEW SEROMA/ABSCESS IN THE UMBILICUS OR MALFUNCTION OF DRAIN ABD SOFT MORBID OBESITY NON ACUTE PROCEED WITH DRAINAGE UMBILICAL SEROMA/ABSCESS PT CONSENTS Plan discussed with: Patient SOLOMON ROBERTSON MD Oct 25, 2024 16:15
--- NOTE | 2024-10-25 16:20 | DVHINCON2 ---
DATE OF CONSULTATION: 10/25/2024 HISTORY OF PRESENT ILLNESS: This patient is 48 years old, known to me from previous surgery. He had recent umbilical hernia repair done on 10/05/2024 and then he came back with a seroma in the periumbilical location that was drained out and he now comes back with a different site seroma. The CAT scan is confirming appropriate placement of the drainage tube right next to the collection, but apparently the drainage tube is not working. It is malfunctioning, so he came to the Emergency Room and he is wanting to have this drained out as well. No nausea or vomiting. No constipation or diarrhea. No hematemesis or melena. No bleeding per rectum. PAST MEDICAL HISTORY: Please refer to records. PAST SURGICAL HISTORY: As mentioned above. PHYSICAL EXAMINATION: VITAL SIGNS: Afebrile, stable signs. HEENT: With no evidence of pallor, cyanosis, or jaundice. NECK: Supple and nontender with no thyromegaly or lymphadenopathy. CHEST AND LUNGS: Clear. HEART: Within normal limites. ABDOMEN: Soft. He does have an umbilical seroma that is not related or connected to his original seroma and the drainage tube that was placed may not be in that vicinity of the drainage or the drainage tube might be malfunctioning. PLAN: The plan would be to consider drainage of the seroma. Benefits were discussed and consent obtained. MD REBECCA Martini/MAURILIO TID: [id number] RECEIPT: [id number] cc: Josephine Gray
[2024-10-25] MEDS ORDERED: NITROGLYCERIN 0.4 MG SL TAB SL PRN (17:15)
[2024-10-25] MEDS: LIDOCAINE 1% HCL (LOCAL ANESTH.) INJ 20ML MDV ONE (17:38)
[2024-10-25] MEDS ORDERED: fentaNYL CITRATE 100 MCG/2 ML VL ONE (17:49)
[2024-10-25] MEDS ORDERED: MIDAZOLAM HCL 2MG/2ML 2ml VIAL (1mg/ml) ONE (17:49)
[2024-10-25] MEDS ORDERED: ALBUTEROL SULFATE 90 MCG MDI IN ONE (18:10)
[2024-10-25] MEDS ORDERED: LIDOCAINE 2% (LOCAL ANESTH.) PF 5ml SDV ONE (18:10)
[2024-10-25] MEDS ORDERED: PROPOFOL 10 MG/ML 20 ML IV ONE (18:10)
--- NOTE | 2024-10-25 18:26 | DVHOP2 ---
Operative Report [id number] UMBILICAL SEROMA/ABSCESS INFRA PERIUMBILICAL NON HEALING WOUND DRAIN ABOVE SEROMA/HEMATOMA/ABSCESS SEC CLOSURE NONHEALING WOUND [id number] CC ONE DRAIN ORIGINAL R SIDE DRAIN RETAINED NO COMPLICATIONS STABLE RETURNED TO RECOVERY ROOM SOLOMON ROBERTSON MD Oct 25, 2024 18:26
[2024-10-25 18:28] VITALS: RESP 15; O2SAT 99
[2024-10-25] MEDS ORDERED: HYDROmorphone HCL 2 MG/ML VL/or syr IV PRN (18:45)
[2024-10-25] MEDS ORDERED: ONDANSETRON HCL 4 MG/2 ML VIAL IV PRN (18:45)
--- NOTE | 2024-10-25 18:51 | DVHOP ---
DATE OF SURGERY: 10/25/2024 PREOPERATIVE DIAGNOSIS: Umbilical seroma/abscess. POSTOPERATIVE DIAGNOSIS: Umbilical seroma/abscess. PROCEDURE: I and D of this abscess/seroma status post previous drainage of the periumbilical abscess/seroma and this was a separate location that had caused the swelling to be medial to the previous collection site. SURGEON: Thom Warner MD FIRE [employer]OTECTION EQUIPMENT TECHNICIAN: None. ANESTHESIA: Local IV sedation. DESCRIPTION OF PROCEDURE: The patient was prepped and draped in the usual sterile fashion in the supine position and the umbilical area was exposed. The nonhealing wound was located and through this area, an instrument was advanced into position after the incision was made bigger in the infraumbilical location and the seroma/abscess was located below the umbilicus separate from the previous abscess/seroma site that was more lateral on the right side and that drain was then positioned, was not removed, so this new location was suctioned out and cultures were sent and there was a hematoma as well that was drained out and with this being done, irrigation was performed. Hemostasis was secured. Size 19 Benjy drainage was placed to drain the infraumbilical and the umbilical location and the drain was secured with a silk suture and the nonhealing wound was brought together using silk suture in a mattress fashion as well. With this being done, the umbilicus was secured with a Xeroform packing and the drain sites were then secured with the dressings in place. The patient tolerated the procedure well and was taken back to the recovery room in stable condition. MD REBECCA Martini/ASHISH TID: [id number] RECEIPT: [id number]
[2024-10-25] MEDS: HYDROmorphone HCL 2 MG/ML VL/or syr IV PRN (19:11)
[2024-10-25 20:20] VITALS: BP 144/97; PULSE 82; RESP 17; TEMP 97.7; O2SAT 95
[2024-10-25 20:22] VITALS: PULSE 82; RESP 18; O2SAT 95
[2024-10-26 01:00] VITALS: BP 136/83; PULSE 80; RESP 17; TEMP 97.8; O2SAT 97
[2024-10-26 05:00] VITALS: BP 122/88; PULSE 75; RESP 17; TEMP 98; O2SAT 93
[2024-10-26] MEDS: HYDROcodone-ACET 7.5/325MG TAB PO ONE (05:04)
[2024-10-26 09:00] VITALS: BP 111/69; PULSE 65; RESP 18; TEMP 98.5; O2SAT 93
--- NOTE | 2024-10-26 12:24 | DVHHP2 ---
Review of Systems Allergies: Uncoded Allergies: SEAFOOD (Allergy, Unknown, 05/13/23) Medications Current Medications Medications Dose Ordered Sig/Oumar Route Start Time Stop Time Status Last Admin Dose Admin Nitroglycerin 0.4 mg Q5MINP PRN SL 10/25/24 17:15 Morphine Sulfate 2 mg Q30M PRN IV 10/25/24 17:15 Exam Vital Signs Vital Signs Date Time Temp Pulse Resp B/P (MAP) Pulse Ox O2 Delivery O2 Flow Rate FiO2 10/26/24 09:00 98.5 65 18 111/69 (83) 93 98.5 10/26/24 08:00 Room Air* 0 21 Labs/Xrays Labs Test 10/26/24 04:57 10/25/24 11:50 10/25/24 11:42 Range/Units POC Glucose 111 H 70-106 mg/dl White Blood Count 11.5 H 4.4-10.8 10^3/uL Red Blood Count 4.79 4.5-5.90 10^6/uL Hemoglobin 14.0 13.5-17.5 g/dL Hematocrit 40.7 L 41.0-53.0 % Mean Corpuscular Volume 84.9 # 80.0-100.0 fL Mean Corpuscular Hemoglobin 29.2 28.0-32.0 pg Mean Corpuscular Hemoglobin Concent 34.4 32.0-36.0 g/dL Red Cell Distribution Width 14.0 11.8-14.3 % Platelet Count 434 140-450 10^3/uL Mean Platelet Volume 8.1 6.9-10.8 fL Neutrophils (%) (Auto) 72.5 37.0-80.0 % Lymphocytes (%) (Auto) 17.6 10.0-50.0 % Monocytes (%) (Auto) 7.7 0.0-12.0 % Eosinophils (%) (Auto) 1.5 0.0-7.0 % Basophils (%) (Auto) 0.7 0.0-2.0 % Neutrophils # (Auto) 8.4 1.6-8.6 10 ^3/uL Lymphocytes # (Auto) 2.0 0.4-5.4 10 ^3/uL Monocytes # (Auto) 0.9 0-1.3 10 ^3/uL Eosinophils # (Auto) 0.2 0-0.8 10 ^3/uL Basophils # (Auto) 0.1 0-0.2 10 ^3/uL Nucleated Red Blood Cells 0.1 % Sodium Level 139 136-145 mmol/L Potassium Level 3.8 3.5-5.1 mmol/L Chloride Level 102 98-107 mmol/L Carbon Dioxide Level 24 20-31 mmol/L Anion Gap 13 5-15 Blood Urea Nitrogen 15 9-23 mg/dL Creatinine 1.16 0.700-1.30 mg/dL Glomerular Filtration Rate Calc 78 >90 mL/min BUN/Creatinine Ratio 12.9 10.0-20.0 Serum Glucose 175 H 74-106 mg/dL Lactic Acid Level 1.7 0.4-2.0 mmol/L Calcium Level 9.4 8.7-10.4 mg/dL Urine Color Yellow Yellow Urine Clarity Clear Clear Urine pH 6.0 5.0-9.0 Urine Specific Ad[place] 1.024 1.001-1.035 Urine Protein Negative Negative Urine Ketones Negative Negative Urine Blood Negative Negative /uL Urine Nitrite Negative Negative Urine Bilirubin Negative Negative Urine Urobilinogen Normal Negative mg/dL Urine Leukocyte Esterase Negative Negative /uL Urine RBC 2 0 - 3 /hpf Urine Microscopic WBC 1 0-3 /HPF Urine Squamous Epithelial Cells Few <5 /hpf Urine Bacteria None seen None Seen /hpf Urine Glucose Normal Normal mg/dL Microbiology Date/Time Source Procedure Growth Status 10/25/24 12:08 Other Gram Stain Pending Resulted 10/25/24 12:08 Other Anaerobic Culture - Preliminary Resulted 10/25/24 12:08 Other Aerobic Culture - Preliminary Resulted 10/25/24 12:02 Blood Blood Culture - Preliminary NO GROWTH AFTER 24 HOURS OF INCUBATION. Resulted SEPSIS Sepsis Screen Date sepsis recognized/suspect: Oct 25, 2024 Time Sepsis recognized/suspect: 1108 Recent Procedure: Yes On Antibiotic Therapy: Yes Respiratory Rate >20: Yes Heart Rate >90: Yes Temp<36 C (96.8 F) or >38.3 C: No SBP <90 or MAP <65 mmHG: No New Acute Mental Status Change: No Is the patient on CPAP, BIPAP,: No Vital Signs Date Time Temp Pulse Resp B/P (MAP) Pulse Ox O2 Delivery O2 Flow Rate FiO2 10/26/24 09:00 98.5 65 18 111/69 (83) 93 98.5 10/26/24 08:00 Room Air* 0 21 9/2/25 05:00 98.0 75 17 122/88 (99) 93 98.0 Assessment/Plan Assessment/Plan see dictated note Plan discussed with: Patient Date of Service: Oct 26, 2024 Billing Provider: ADITI SHANE MD Common Visit Codes: [id number] INP/OBS CARE (HIGH) ADITI SHANE MD Oct 26, 2024 12:24
[2024-10-26] MEDS ORDERED: MORPHINE SULFATE INJ 2 MG/ml SYRG IV PRN (12:30)
[2024-10-26] MEDS ORDERED: ACETAMINOPHEN 325 MG TAB PO PRN (12:30)
[2024-10-26] MEDS ORDERED: DEXTROSE (50%) 50ML SYRG IV PRN (12:30)
[2024-10-26] MEDS ORDERED: ONDANSETRON HCL 4 MG/2 ML VIAL IV PRN (12:30)
[2024-10-26] MEDS ORDERED: VANCOMYCIN PER PHARMACY 0 MG IV SCH (12:30)
[2024-10-26] MEDS: SODIUM CHLORIDE 0.9% 1,000 ML IV SCH (12:30)
[2024-10-26] MEDS: HYDROcodone-ACET 5/325MG TAB PO PRN (12:52)
[2024-10-26] MEDS: PIPERACILLIN-TAZOB 3.375GM 100 ML IV ONE (12:52)
[2024-10-26] MEDS: PANTOPRAZOLE 40 MG/10 ML VIAL INJ IV ONE (12:52)
--- NOTE | 2024-10-26 12:54 | DVHHP ---
ADMIT DATE: 10/25/2024 HISTORY OF PRESENT ILLNESS: The patient is a 48-year-old gentleman who was recently discharged after he underwent repair of incarcerated umbilical hernia. The patient came after he had increasing pain accompanied by nausea, fevers, and abdominal discomfort. The patient's drain also was not draining anything. The patient contacted Dr. Warner, who recommended inpatient. No chest pain, no shortness of breath. The patient has been having bowel activity. REVIEW OF SYSTEMS: Review of rest of systems is otherwise currently negative. PAST MEDICAL HISTORY: Significant for diabetes, hypertension, GERD, and hyperlipidemia. MEDICATIONS: He takes Pepcid, [place], losartan, Protonix, and Ozempic. ALLERGIES: No known drug allergies. SOCIAL HISTORY: Denies smoking or alcohol. Lives at home with his mother. FAMILY HISTORY: Negative. PHYSICAL EXAMINATION: GENERAL: The patient is awake and alert. VITAL SIGNS: Temperature of 97.8, pulse of 65 per minute, blood pressure 122/88. SHEENT: Unremarkable. There is no JVD. No pedal edema. LUNGS: Equal bilaterally. No added sounds. CARDIOVASCULAR: S1 and S2 regular. No murmurs. ABDOMEN: Bowel sounds are hypoactive. There is a MICHAEL drain in place. NEUROLOGIC: Nonfocal. MUSCULOSKELETAL: Normal. ASSESSMENT AND PLAN: * Status post recent incarcerated hernia repair with complex fluid collections, questionable abscess. The patient is status post incision and drainage. He will be placed on a broad spectrum IV antibiotics to include Zosyn and vancomycin. * Diabetes mellitus for which he will be placed on sliding scale insulin. * Hypertension. * Morbid obesity. * Hyperlipidemia. * GERD. MD ARIANNA Poe/VERÓNICA TID: [id number] RECEIPT: [id number]
[2024-10-26 13:00] VITALS: BP 158/105; PULSE 80; RESP 18; TEMP 97.3; O2SAT 98
--- NOTE | 2024-10-26 13:46 | DVHPN2 ---
Progress Note Date Seen: Oct 26, 2024 Medical Necessity Reason Pt with a Central, PICC or Fol: No Objective vital signs Vital Sign Date Time Temp Pulse Resp B/P (MAP) Pulse Ox O2 Delivery O2 Flow Rate FiO2 10/26/24 09:00 98.5 65 18 111/69 (83) 93 98.5 10/26/24 08:00 Room Air* 0 21 Total Intake and Output 10/25/24 10/25/24 10/26/24 15:00 23:00 07:00 Intake Total 100 ml 200 ml Output Total 10 ml Balance 100 ml -10 ml 200 ml medications Current Medications Medications Dose Ordered Sig/Oumar Route Start Time Stop Time Status Last Admin Dose Admin Nitroglycerin 0.4 mg Q5MINP PRN SL 10/25/24 17:15 Morphine Sulfate 2 mg Q30M PRN IV 10/25/24 17:15 Diagnostic Test (Pha) 1 strip ACHS 10/26/24 17:00 Insulin Human Regular ACHS SC 10/26/24 17:00 Dextrose 50 ml UD PRN IV 10/26/24 12:30 Piperacillin Sod/ Tazobactam Sod 100 ml @ 25 mls/hr Q6HR IV 10/26/24 18:00 Vancomycin HCl 0 ml @ 0 mls/hr UD IV 10/26/24 12:30 Morphine Sulfate 2 mg Q4HPRN PRN IV 10/26/24 12:30 Acetaminophen/ Hydrocodone Bitart 1 tab Q6HPRN PRN PO 10/26/24 12:30 10/26/24 12:52 1 TAB Acetaminophen 650 mg Q6HP PRN PO 10/26/24 12:30 Ondansetron HCl 4 mg Q6HPRN PRN IV 10/26/24 12:30 Pantoprazole Sodium 40 mg DAILY IV 10/27/24 10:00 Sodium Chloride 1,000 ml @ 75 mls/hr [id number] IV 10/26/24 12:30 10/26/24 12:30 75 MLS/HR Vancomycin HCl 250 ml @ 250 mls/hr Q1H IV 10/26/24 14:00 10/26/24 15:59 laboratory and microbiology Laboratory Tests 10/25/24 11:50 Test 10/25/24 11:50 Range/Units Serum Glucose 175 H 74-106 mg/dL Microbiology Date/Time Source Procedure Growth Status 10/25/24 12:08 Other Gram Stain Pending Resulted 10/25/24 12:08 Other Anaerobic Culture - Preliminary Resulted 10/25/24 12:08 Other Aerobic Culture - Preliminary Resulted 10/25/24 12:02 Blood Blood Culture - Preliminary NO GROWTH AFTER 24 HOURS OF INCUBATION. Resulted Problem List/Assessment/Plan Problem List/Assessment/Plan AFEBRILE VSS ABD SOFT NO BM NO FLATUS GARRY CLEAR LIQUIDS DRAIN R SIDE 5 CC SEROUS DRAIN L SIDE 25 CC SEROSANGUINEOUS NO COMPLICATIONS CONTINUE IV ABX DRAIN CARE FULL LIQUIDS NURSE AT BEDSIDE Plan discussed with: Patient My Orders My Orders Orders - SOLOMON ROBERTSON MD Procedure Category Date Status Time Obtain Consent For: ORDERS 10/25/24 Transmitted 13:51 Obtain Consent For JREAMY 10/25/24 In Process Anesthesia 13:51 Admit ADMIT 10/25/24 Transmitted 17:14 Oxygen By Nasal RT 10/25/24 Transmitted Cannula 17:14 Nitroglycerin PHA 10/25/24 In Process Sublingual (Ntrostat 17:15 Morphine Sulfate PHA 10/25/24 In Process Injection 17:15 Stat Ekg For Chest JERAMY 10/25/24 In Process Pain 17:14 Notify Of Changes JERAMY 10/25/24 In Process From Base 17:14 Fire Dispatcher For JERAMY 10/25/24 In Process 24 Hours 17:14 Emergency Dysrhythmia JERAMY 10/25/24 In Process Protocol 17:14 Rhythm Strips Once JERAMY 10/25/24 In Process Every Shift 17:14 Anaerobic Culture GRICEL 10/25/24 In Process 18:14 Gram Stain GRICEL 10/25/24 In Process 18:14 Routine Bacterial GRICEL 10/25/24 In Process Culture 18:14 Clear Liq Diet DIET 10/26/24 Transmitted Breakfast SOLOMON ROBERTSON MD Oct 26, 2024 13:46
[2024-10-26] MEDS: VANCOMYCIN 1GM/250ML KIT 250 ML IV SCH ×2 (14:39→21:56)
[2024-10-26 16:45] VITALS: BP 128/76; PULSE 86; RESP 18; TEMP 97.6; O2SAT 93
[2024-10-26] MEDS: ACCU-CHEK COMFORT CURVE STRIP VI SCH (16:56)
[2024-10-26] MEDS: PIPERACILLIN-TAZOB 3.375GM 100 ML IV SCH (17:00)
[2024-10-26] MEDS: InsuLIN REG 1unit/0.01ml Soln (100units/ml) SC SCH (17:00)
[2024-10-26 21:00] VITALS: BP 137/97; PULSE 78; RESP 16; TEMP 99; O2SAT 95
[2024-10-26] MEDS: MORPHINE SULFATE INJ 2 MG/ml SYRG IV PRN (23:27)
[2024-10-27] MEDS: PIPERACILLIN-TAZO 4.5GM 100 ML IV SCH (00:36)
[2024-10-27 01:00] VITALS: BP 122/86; PULSE 72; RESP 16; TEMP 97.7; O2SAT 92
[2024-10-27 05:00] VITALS: BP 119/69; PULSE 69; RESP 16; TEMP 97.7; O2SAT 92
[2024-10-27 06:30] LABS: Hematocrit 38.4 % (41.0-53.0); Hemoglobin 13.3 g/dL (13.5-17.5); Mean Corpuscular Hemoglobin 29.3 pg (28.0-32.0); Mean Corpuscular Volume 84.8 fL (80.0-100.0); Nucleated Red Blood Cells % 0.1 %
[2024-10-27 06:38] LABS: Alanine Aminotransferase 19 U/L (7-40); Alkaline Phosphatase 72 U/L (46-116); Anion Gap 10 (5-15); BUN/Creatinine Ratio 9.6 (10.0-20.0); Blood Urea Nitrogen 10 mg/dL (9-23); Calcium 9.1 mg/dL (8.7-10.4); Carbon Dioxide 27 mmol/L (20-31); Chloride 103 mmol/L (98-107); Glucose 106 mg/dL (74-106); Potassium 4.1 mmol/L (3.5-5.1); Sodium 140 mmol/L (136-145); Total Protein 7.2 g/dL (5.7-8.2)
[2024-10-27 06:39] LABS: Albumin 3.9 g/dL (3.2-4.8); Bilirubin, Total 0.6 mg/dL (0.2-1.0)
[2024-10-27 08:45] VITALS: BP 128/91; PULSE 82; RESP 16; TEMP 98; O2SAT 100
[2024-10-27] MEDS: PANTOPRAZOLE 40 MG/10 ML VIAL INJ IV SCH (09:08)
--- NOTE | 2024-10-27 10:02 | DVHPN2 ---
Progress Note Date Seen: Oct 27, 2024 Medical Necessity Reason Pt with a Central, PICC or Fol: No Objective vital signs Vital Sign Date Time Temp Pulse Resp B/P (MAP) Pulse Ox O2 Delivery O2 Flow Rate FiO2 10/27/24 08:45 98.0 82 16 128/91 (103) 100 98.0 10/26/24 20:00 Room Air* 0 21 Total Intake and Output 10/26/24 10/26/24 10/27/24 15:00 23:00 07:00 Intake Total 100 ml 2632 ml 1200 ml Balance 100 ml 2632 ml 1200 ml medications Current Medications Medications Dose Ordered Sig/Oumar Route Start Time Stop Time Status Last Admin Dose Admin Nitroglycerin 0.4 mg Q5MINP PRN SL 10/25/24 17:15 Morphine Sulfate 2 mg Q30M PRN IV 10/25/24 17:15 10/26/24 23:27 2 MG Diagnostic Test (Pha) 1 strip ACHS 10/26/24 17:00 10/27/24 06:29 1 STRIP Insulin Human Regular ACHS SC 10/26/24 17:00 Dextrose 50 ml UD PRN IV 10/26/24 12:30 Vancomycin HCl 0 ml @ 0 mls/hr UD IV 10/26/24 12:30 Morphine Sulfate 2 mg Q4HPRN PRN IV 10/26/24 12:30 Acetaminophen/ Hydrocodone Bitart 1 tab Q6HPRN PRN PO 10/26/24 12:30 10/26/24 18:52 1 TAB Acetaminophen 650 mg Q6HP PRN PO 10/26/24 12:30 Ondansetron HCl 4 mg Q6HPRN PRN IV 10/26/24 12:30 Pantoprazole Sodium 40 mg DAILY IV 10/27/24 10:00 10/27/24 09:08 40 MG Sodium Chloride 1,000 ml @ 75 mls/hr [id number] IV 10/26/24 12:30 10/26/24 12:30 75 MLS/HR Vancomycin HCl 250 ml @ 250 mls/hr Q8HR IV 10/26/24 22:00 10/27/24 05:49 250 MLS/HR Piperacillin Sod/ Tazobactam Sod 100 ml @ 25 mls/hr Q8H IV 10/27/24 00:00 10/27/24 09:07 25 MLS/HR laboratory and microbiology Laboratory Tests 10/27/24 05:09 Test 10/27/24 05:09 Range/Units Serum Glucose 106 74-106 mg/dL Microbiology Date/Time Source Procedure Growth Status 10/25/24 12:08 Other Gram Stain - Final Resulted 10/25/24 12:08 Other Anaerobic Culture - Preliminary Resulted 10/25/24 12:08 Other Aerobic Culture - Preliminary Resulted 10/25/24 12:02 Blood Blood Culture - Preliminary NO GROWTH AFTER 24 HOURS OF INCUBATION. Resulted Problem List/Assessment/Plan Problem List/Assessment/Plan AFEBRILE VSS ABD SOFT GARRY diet DRAIN R SIDE 5 CC SEROUS DRAIN L SIDE 15 CC SEROSANGUINEOUS NO COMPLICATIONS CONTINUE IV ABX DRESSING CHANGED DRAIN CARE FULL LIQUIDS NURSE AT BEDSIDE Plan discussed with: Patient My Orders My Orders Orders - SOLOMON ROBERTSON MD Procedure Category Date Status Time Full Liq Diet DIET 10/27/24 Transmitted Breakfast SOLOMON ROBERTSON MD Oct 27, 2024 10:02
--- NOTE | 2024-10-27 10:55 | DVHDS2 ---
Discharge Summary Date of Admission Oct 25, 2024 at 17:14 Date of Discharge: Oct 27, 2024 Labs/Diagnostic Data: Laboratory Results Test 10/27/24 06:28 10/27/24 05:09 10/25/24 11:50 10/25/24 11:42 POC Glucose 128 mg/dl (70-106) White Blood Count 9.2 10^3/uL (4.4-10.8) Red Blood Count 4.53 10^6/uL (4.5-5.90) Hemoglobin 13.3 g/dL (13.5-17.5) Hematocrit 38.4 % (41.0-53.0) Mean Corpuscular Volume 84.8 fL (80.0-100.0) Mean Corpuscular Hemoglobin 29.3 pg (28.0-32.0) Mean Corpuscular Hemoglobin Concent 34.5 g/dL (32.0-36.0) Red Cell Distribution Width 14.1 % (11.8-14.3) Platelet Count 388 10^3/uL (140-450) Mean Platelet Volume 8.2 fL (6.9-10.8) Neutrophils (%) (Auto) 62.8 % (37.0-80.0) Lymphocytes (%) (Auto) 24.4 % (10.0-50.0) Monocytes (%) (Auto) 8.4 % (0.0-12.0) Eosinophils (%) (Auto) 3.9 % (0.0-7.0) Basophils (%) (Auto) 0.5 % (0.0-2.0) Neutrophils # (Auto) 5.8 10 ^3/uL (1.6-8.6) Lymphocytes # (Auto) 2.2 10 ^3/uL (0.4-5.4) Monocytes # (Auto) 0.8 10 ^3/uL (0-1.3) Eosinophils # (Auto) 0.4 10 ^3/uL (0-0.8) Basophils # (Auto) 0 10 ^3/uL (0-0.2) Nucleated Red Blood Cells 0.1 % Sodium Level 140 mmol/L (136-145) Potassium Level 4.1 mmol/L (3.5-5.1) Chloride Level 103 mmol/L (98-107) Carbon Dioxide Level 27 mmol/L (20-31) Anion Gap 10 (5-15) Blood Urea Nitrogen 10 mg/dL (9-23) Creatinine 1.04 mg/dL (0.700-1.30) Glomerular Filtration Rate Calc 89 mL/min (>90) BUN/Creatinine Ratio 9.6 (10.0-20.0) Serum Glucose 106 mg/dL (74-106) Calcium Level 9.1 mg/dL (8.7-10.4) Total Bilirubin 0.6 mg/dL (0.2-1.0) Aspartate Amino Transferase (AST) 15 U/L (13-40) Alanine Aminotransferase (ALT) 19 U/L (7-40) Alkaline Phosphatase 72 U/L (46-116) Total Protein 7.2 g/dL (5.7-8.2) Albumin 3.9 g/dL (3.2-4.8) Lactic Acid Level 1.7 mmol/L (0.4-2.0) Urine Color Yellow (Yellow) Urine Clarity Clear (Clear) Urine pH 6.0 (5.0-9.0) Urine Specific [place] 1.024 (1.001-1.035) Urine Protein Negative (Negative) Urine Ketones Negative (Negative) Urine Blood Negative /uL (Negative) Urine Nitrite Negative (Negative) Urine Bilirubin Negative (Negative) Urine Urobilinogen Normal mg/dL (Negative) Urine Leukocyte Esterase Negative /uL (Negative) Urine RBC 2 /hpf (0 - 3) Urine Microscopic WBC 1 /HPF (0-3) Urine Squamous Epithelial Cells Few /hpf (<5) Urine Bacteria None seen /hpf (None Seen) Urine Glucose Normal mg/dL (Normal) Other Laboratory Tests 10/27/24 05:09 Brief Hx & Hospital Course: see dictated note Condition at Discharge: Fair Final Diagnosis/Problems List abd abscess Discharge Disposition: Home Discharge Instruct/Medications Diet: Consistent carbohydrate, Cardiac 2g Na,low cholest Activity: No Restrictions, As Tolerated Follow Up/Referral: fu with dr Lidia Warner next week Medications: script to pharmacy resume home meds Scheduled Amoxicillin & Pot Clavulanate (Augmentin), 1 TAB PO BID Famotidine (Famotidine), 20 MG PO BID, (Reported) Levofloxacin Hemihydrate (Levaquin 500 Mg), 1 TAB PO DAILY Losartan Potassium & Hydrochlo (Hyzaar), 1 TAB PO DAILY Metronidazole (Flagyl), 1 TAB PO TID Pantoprazole Sodium Sesquihydr (Protonix), 40 MG PO DAILY Semaglutide (Ozempic), 2 MG SC QWEEKLY, (Reported) Scheduled PRN Clonidine Hydrochloride (Clonidine Hcl), 1 TAB PO BIDP PRN Hydrocodone-Acetaminophen (Hydrocodone Bitartrate/AC 5-325 mg), 1 TAB PO Q6HP PRN Hydrocodone-Acetaminophen (Hydrocodone Bitartrate/AC 5-325 mg), 1 TAB PO QID PRN Discontinued Medications Atorvastatin Calcium (Lipitor), 1 TAB PO DAILY, (Reported) Discharge Statement: "Patient was advised to return to the ER or call 911 if any headaches, dizziness, shortness of breath, chest pain, abdominal pain, bleeding, fevers, or worsening of medical condition. Patient was counseled about treatment plan, medications, possible side effects, patientverbalized understanding. All questions were answered to the best of my ability. This discharge took greater then 30 minutes in planning, reviewing documentation, counseling the patient, and discussing with other team members." ASSESSMENT ASSESSMENT Assessment abd abscess Date of Service: Oct 27, 2024 Billing Provider: ADITI SHANE MD Common Visit Codes: [id number] DISCH DAY >30min ADITI SHANE MD Oct 27, 2024 10:55
[2024-10-27] MEDS ORDERED: HYDR1TAB97 PO (10:56)
[2024-10-27] MEDS ORDERED: DOXY-286 PO (10:56)
--- NOTE | 2024-10-27 11:06 | DVHDS ---
DATE OF DISCHARGE: 10/27/2024 HISTORY OF PRESENT ILLNESS: The patient is a 48-year-old gentleman who was admitted after he had nausea, abdominal pain, and fever following repair of an incarcerated umbilical hernia. The patient has a history of diabetes, hypertension, GERD, and hyperlipidemia. HOSPITAL COURSE: The patient had a CT of abdomen and pelvis that showed periumbilical complex fluid collection. The patient underwent surgery by Dr. Thom Warner on 10/25/2024. His wound culture grew likely Staph aureus. The patient has now been cleared for discharge by Dr. Warner and will be discharged home to be on doxycycline 100 mg p.o. b.i.d. for 10 days and Kunia p.r.n. for pain. He will follow up with Dr. Warner in the coming week. FINAL DIAGNOSES: Therefore: * Abscess/fluid collection in the periumbilical region status post incision and drainage. * History of recently incarcerated umbilical hernia repair. * Diabetes mellitus. * Hypertension. * Morbid obesity. * Hyperlipidemia. * GERD. Time spent in discharge planning and review of plan with the patient and nursing was 39 minutes. MD ARIANNA Poe/EDEL TID: [id number] RECEIPT: [id number] [facility]ENTERZabrina
[2024-10-27 13:04] VITALS: TEMP 36.7
== END 2024-10-27 13:31 | disposition home or self-care (01) | DRG 580 ==
LOC: ER 11:04 → OVERFLOW 17:14 → WEST WING 20:20
PROVIDERS: ADMIT Internal Medicine; ATTEND Internal Medicine
PROC: 0W9F00Z Drainage of Abdominal Wall with Drainage Device, Open Approach (ICD-10-PCS; principal; 2024-10-25 17:43)
DX: L02.216 Cutaneous abscess of umbilicus (principal); T81.49XA Infection following a procedure, other surgical site, initial encounter; Z68.42 Body mass index [BMI] 45.0-49.9, adult; E66.01 Morbid (severe) obesity due to excess calories; K21.9 Gastro-esophageal reflux disease without esophagitis; E11.9 Type 2 diabetes mellitus without complications; E78.5 Hyperlipidemia, unspecified; I10 Essential (primary) hypertension; Z83.3 Family history of diabetes mellitus; Z82.49 Family history of ischemic heart disease and other diseases of the circulatory system; Z87.442 Personal history of urinary calculi; Z91.013 Allergy to seafood; Z79.2 Long term (current) use of antibiotics; Z79.899 Other long term (current) drug therapy; Y84.8 Other medical procedures as the cause of abnormal reaction of the patient, or of later complication, without mention of misadventure at the time of the procedure; Y92.89 Other specified places as the place of occurrence of the external cause
CPT/HCPCS: 36415; 74176; 80048; 80053; 80202; 81001; 82962; 83605; 85025; 87040; 87070; 87075; 87081; 87205; 96365; G0378; J2003; J2250; J2470; J2543; J2704